=== PATIENT | female | born 1965 | race African-American/Black ===

== ENCOUNTER 2017-05-21 07:40 | Inpatient (IN) | payer MEDICARE, MEDICAID ==
[~2017-05-21] VITALS: Ht 162.6 cm; Wt 56.7 kg
[~2017-05-21 07:40] MED LIST: ASPI-1159 PO; CALC667C4 PO; CINA30 PO; COR3 PO; FOLI-43 PO; LEVO175T7 PO; LEVO75TA7 PO; SEVE800T8 PO
[2017-05-21] MEDS ORDERED: MORPHINE SULFATE 4 MG/ML CPJ (NOT FOR IM USE) IV STA (08:05)
[2017-05-21] MEDS ORDERED: ONDANSETRON HCL 4MG/2ML VIAL IV STA (08:05)
[2017-05-21] MEDS ORDERED: DIPHENHYDRAMINE 50MG CAPSULE PO ONE (08:15)
[2017-05-21 08:34] LABS: BASOPHILS % 1.4 % (0.0-2.0); HEMATOCRIT. 26.1 % (36.0-48.0); HEMOGLOBIN. 8.3 g/dL (12.0-16.0); LYMPHOCYTES % 21.2 % (20.0-50.0); MEAN CORPUSCULAR HEMOGLOBIN 29.6 pg (28.0-32.0); MEAN CORPUSCULAR VOLUME 92.8 fL (81.0-99.0); MEAN PLATELET VOLUME 8.4 fl (7.4-10.4); MONOCYTES % 8.4 % (2.0-8.0); PLATELET 122 x1000/uL (130-400); RED BLOOD CELL COUNT 2.81 mill/uL (4.2-5.4); RED CELL DISTRIBUTION WIDTH 17.5 % (11.6-14.6)
[2017-05-21 08:40] LABS: INR 1.1; PROTHROMBIN TIME 11.1 sec (9.4-11.6)
[2017-05-21 08:44] LABS: CARBON DIOXIDE 27 mEq/L (21-32); CHLORIDE 100 mEq/L (98-107)
[2017-05-21 08:59] LABS: HCG SCREEN NEGATIVE
[2017-05-21] MEDS ORDERED: ALBUTEROL (0.083%) 2.5MG/3ML NEB HHN ONE (09:45)
[2017-05-21] MEDS ORDERED: DEXTROSE 50% WATER 50ML SYRINGE IV ONE ×4 (09:45→13:45)
[2017-05-21] MEDS ORDERED: SODIUM BICARBONATE 8.4% 1 MEQ/ML 50ML SYR IV ONE (09:45)
[2017-05-21] MEDS ORDERED: CALCIUM CHLORIDE 1GM/10ML SYR IV ONE (09:45)
[2017-05-21] MEDS ORDERED: SODIUM POLYSTYRENE SULFONATE 15 G/60 ML BOT PO ONE (09:45)
[2017-05-21] MEDS ORDERED: INSULIN REGULAR (HUMULIN R) 300UNITS/3ML IV ONE (09:45)
[2017-05-21] MEDS ORDERED: ONDANSETRON HCL 4MG/2ML VIAL IV ONE (10:15)
[2017-05-21] MEDS ORDERED: SODIUM CHLORIDE 0.9% 10ML VIAL ONE (10:51)
[2017-05-21] MEDS ORDERED: IOHEXOL-300 100 ML BOTTLE ONE (10:51)
[2017-05-21] MEDS ORDERED: PIPERACILLIN/TAZOBACTAM 3.375GM/50ML PREMIX IV ONE (12:15)
[2017-05-21] MEDS ORDERED: PIPERACILLIN/TAZ 3.375G PREMIX 50 ML IV SCH (12:30)
[2017-05-21 15:00] VITALS: BP 130/81
[2017-05-21 15:30] VITALS: BP 138/72
[2017-05-21 16:00] VITALS: BP 138/72
[2017-05-21] MEDS ORDERED: CARVEDILOL 6.25 MG TABLET PO SCH (17:00)
[2017-05-21 18:00] VITALS: BP 141/75
[2017-05-21] MEDS: CALCIUM ACETATE 667MG CAPSULE PO SCH (18:38)
[2017-05-21 20:00] VITALS: BP 126/56
[2017-05-21] MEDS ORDERED: EPOETIN ALFA 10000UNITS/ML VIAL SUBCUT SCH (21:00)
[2017-05-21 22:00] VITALS: BP 129/68
[2017-05-21] MEDS ORDERED: IPRATROPIUM/ALBUTEROL 0.5-3(2.5)MG/3ML NEB INH PRN (22:15)
[2017-05-22] VITALS (10 sets, daily range): BP systolic 126–154; BP diastolic 62–90
[2017-05-22] MEDS: ONDANSETRON HCL 4MG/2ML VIAL IV PRN ×3 (01:14→16:03)
[2017-05-22] MEDS: HYDROMORPHONE HCL/PF 2MG/ML CPJ IV PRN ×5 (01:19→21:37)
[2017-05-22] MEDS ORDERED: DEXTROSE 50% WATER 50ML SYRINGE IV PRN (03:30)
[2017-05-22 06:41] LABS: BASOPHILS % 0.8 % (0.0-2.0); EOSINOPHILS % 2.5 % (0.0-5.0); HEMATOCRIT. 23.7 % (36.0-48.0); HEMOGLOBIN. 7.6 g/dL (12.0-16.0); LYMPHOCYTES % 19.1 % (20.0-50.0); MEAN CORPUSCULAR HEMOGLOBIN 30.2 pg (28.0-32.0); MEAN CORPUSCULAR VOLUME 93.3 fL (81.0-99.0); MEAN PLATELET VOLUME 8.5 fl (7.4-10.4); MONOCYTES % 11.1 % (2.0-8.0); NEUTROPHILS % 66.5 % (40.0-76.0); PLATELET 116 x1000/uL (130-400); RED BLOOD CELL COUNT 2.53 mill/uL (4.2-5.4); RED CELL DISTRIBUTION WIDTH 17.4 % (11.6-14.6)
[2017-05-22] MEDS: INSULIN LISPRO 100 UNITS/ML SUBCUT SCH ×4 (07:20→21:00)
[2017-05-22] MEDS: BLOOD SUGAR DIAGNOSTIC STRIP TEST SCH ×4 (07:20→21:05)
[2017-05-22] MEDS: LEVOTHYROXINE SODIUM 175MCG TABLET PO SCH (07:21)
[2017-05-22] MEDS ORDERED: CALCIUM ACETATE 667MG CAPSULE PO SCH (08:00)
[2017-05-22] MEDS: SEVELAMER CARBONATE 800 MG TABLET PO SCH ×3 (08:48→18:12)
[2017-05-22] MEDS: FOLIC ACID 1MG TABLET PO SCH (08:49)
[2017-05-22] MEDS: ASPIRIN 81MG EC TABLET PO SCH (08:50)
[2017-05-22] MEDS: CALCIUM ACETATE 667MG CAPSULE PO SCH ×3 (08:50→18:11)
[2017-05-22] MEDS: CARVEDILOL 3.125 MG TABLET PO SCH ×3 (08:53→09:07)
[2017-05-22] MEDS: CINACALCET HCL 30MG TABLET PO SCH (09:03)
[2017-05-22] MEDS: DIPHENHYDRAMINE 25MG CAPSULE PO PRN (15:59)
[2017-05-23] VITALS (8 sets, daily range): BP systolic 110–139; BP diastolic 73–92
[2017-05-23] MEDS ORDERED: HYDROMORPHONE HCL/PF 2MG/ML CPJ IV PRN (00:15)
[2017-05-23] MEDS: DIPHENHYDRAMINE 25MG CAPSULE PO PRN (01:41)
[2017-05-23] MEDS: HYDROMORPHONE HCL/PF 2MG/ML CPJ IV PRN ×3 (01:42→11:15)
[2017-05-23 06:23] LABS: CARBON DIOXIDE 33 mEq/L (21-32); CHLORIDE 97 mEq/L (98-107); PHOSPHORUS 6.5 mg/dL (2.5-4.9)
[2017-05-23 06:35] LABS: BASOPHILS % 0.9 % (0.0-2.0); HEMATOCRIT. 24.1 % (36.0-48.0); HEMOGLOBIN. 7.7 g/dL (12.0-16.0); LYMPHOCYTES % 28.7 % (20.0-50.0); MEAN CORPUSCULAR HEMOGLOBIN 29.9 pg (28.0-32.0); MEAN PLATELET VOLUME 8.6 fl (7.4-10.4); MONOCYTES % 14.8 % (2.0-8.0); NEUTROPHILS % 51.6 % (40.0-76.0); PLATELET 125 x1000/uL (130-400); RED BLOOD CELL COUNT 2.56 mill/uL (4.2-5.4); RED CELL DISTRIBUTION WIDTH 17.7 % (11.6-14.6)
[2017-05-23] MEDS: LEVOTHYROXINE SODIUM 175MCG TABLET PO SCH (07:08)
[2017-05-23] MEDS: BLOOD SUGAR DIAGNOSTIC STRIP TEST SCH ×2 (07:19→11:58)
[2017-05-23] MEDS: CARVEDILOL 3.125 MG TABLET PO SCH (08:00)
[2017-05-23] MEDS: FOLIC ACID 1MG TABLET PO SCH (08:00)
[2017-05-23] MEDS: CALCIUM ACETATE 667MG CAPSULE PO SCH ×2 (08:00→13:00)
[2017-05-23] MEDS: CINACALCET HCL 30MG TABLET PO SCH (08:00)
[2017-05-23] MEDS: ASPIRIN 81MG EC TABLET PO SCH (08:00)
[2017-05-23] MEDS: SEVELAMER CARBONATE 800 MG TABLET PO SCH ×2 (08:00→13:00)
[2017-05-23] MEDS: INSULIN LISPRO 100 UNITS/ML SUBCUT SCH ×2 (08:00→12:17)
[2017-05-23] MEDS ORDERED: DIPHENHYDRAMINE 50MG/ML VIAL IV SCH (09:45)
== END 2017-05-23 15:39 | disposition home or self-care (01) | DRG 444 ==
LOC: ER 08:31 → ENRESERV 10:54 → EDBEDREQ 12:07 → 5EST 14:48
PROVIDERS: ADMIT Internal Medicine; ATTEND Internal Medicine
DX: K81.9 Cholecystitis, unspecified (principal); N18.6 End stage renal disease; I13.2 Hypertensive heart and chronic kidney disease with heart failure and with stage 5 chronic kidney disease, or end stage renal disease; D61.818 Other pancytopenia; I42.0 Dilated cardiomyopathy; I82.91 Chronic embolism and thrombosis of unspecified vein; E87.5 Hyperkalemia; I50.20 Unspecified systolic (congestive) heart failure; D63.1 Anemia in chronic kidney disease; E03.9 Hypothyroidism, unspecified; E16.2 Hypoglycemia, unspecified; F17.200 Nicotine dependence, unspecified, uncomplicated; M54.5 Low back pain; G89.29 Other chronic pain; R74.0 Nonspecific elevation of levels of transaminase and lactic acid dehydrogenase [LDH]; B19.20 Unspecified viral hepatitis C without hepatic coma; Z99.2 Dependence on renal dialysis; Z95.810 Presence of automatic (implantable) cardiac defibrillator; Z82.49 Family history of ischemic heart disease and other diseases of the circulatory system; Z86.718 Personal history of other venous thrombosis and embolism
CPT/HCPCS: 36415; 71010; 74177; 76705; 80048; 80053; 82962; 83690; 83735; 84100; 84703; 85025; 85610; 93306; 94640; 96374; 96375; 99291; A4216; J0885; J1170; J1200; J1815; J2270; J2405; J2543; J3490; J7030; J7611; Q0163; Q9967

== ENCOUNTER 2017-06-06 08:23 | Inpatient (IN) | payer MEDICARE, MEDICAID ==
[~2017-06-06] VITALS: Ht 165.1 cm; Wt 73.5 kg
[2017-06-06] MEDS ORDERED: ONDANSETRON HCL 4MG/2ML VIAL IV STA (10:50)
[2017-06-06] MEDS ORDERED: DIPHENHYDRAMINE 50MG/ML VIAL IV STA (10:50)
[2017-06-06] MEDS ORDERED: MORPHINE SULFATE 4 MG/ML CPJ (NOT FOR IM USE) IV STA (10:50)
[2017-06-06 11:11] LABS: HEMATOCRIT. 24.4 % (36.0-48.0); MEAN CORPUSCULAR HEMOGLOBIN 29.8 pg (28.0-32.0); MEAN CORPUSCULAR VOLUME 91.7 fL (81.0-99.0); MEAN PLATELET VOLUME 8.6 fl (7.4-10.4); PLATELET 149 x1000/uL (130-400); RED BLOOD CELL COUNT 2.67 mill/uL (4.2-5.4); RED CELL DISTRIBUTION WIDTH 18.4 % (11.6-14.6)
[2017-06-06 11:22] LABS: CHLORIDE 101 mEq/L (98-107)
[2017-06-06 11:30] LABS: CARBON DIOXIDE 28 mEq/L (21-32)
[2017-06-06 11:32] LABS: INR 1.1; PARTIAL THROMBOPLASTIN TIME 32.6 sec (23.4-31.0); PROTHROMBIN TIME 11.2 sec (9.4-11.6)
[2017-06-06 12:05] LABS: HCG SCREEN NEGATIVE
[2017-06-06] MEDS ORDERED: ONDANSETRON HCL 4MG/2ML VIAL IV ONE (12:15)
[2017-06-06] MEDS ORDERED: MORPHINE SULFATE 4 MG/ML CPJ (NOT FOR IM USE) IV ONE (12:15)
[2017-06-06 13:42] LABS: PLATELET ESTIMATE NORMAL
[2017-06-06] MEDS ORDERED: IOHEXOL-300 100 ML BOTTLE ONE (14:09)
[2017-06-06] MEDS ORDERED: SODIUM CHLORIDE 0.9% 10ML VIAL ONE (14:09)
[2017-06-06 16:00] VITALS: BP 129/84
[2017-06-06] MEDS ORDERED: MORPHINE SULFATE 4 MG/ML CPJ (NOT FOR IM USE) IV PRN (18:45)
[2017-06-06] MEDS ORDERED: ONDANSETRON HCL 4MG/2ML VIAL IV PRN (18:45)
[2017-06-06 20:00] VITALS: BP 116/64
[2017-06-06] MEDS ORDERED: GABA-531 PO (20:01)
[2017-06-06] MEDS: HYDROMORPHONE HCL/PF 2MG/ML CPJ IV PRN (21:07)
[2017-06-06] MEDS: DIPHENHYDRAMINE 50MG/ML VIAL IV PRN (21:09)
[2017-06-07] VITALS: BP 104/62
[2017-06-07 04:00] VITALS: BP 100/60
[2017-06-07 07:30] LABS: HEMOGLOBIN. 8.8 g/dL (12.0-16.0); MEAN CORPUSCULAR VOLUME 92.1 fL (81.0-99.0); MEAN PLATELET VOLUME 8.2 fl (7.4-10.4); PLATELET 162 x1000/uL (130-400); RED BLOOD CELL COUNT 2.93 mill/uL (4.2-5.4); RED CELL DISTRIBUTION WIDTH 17.8 % (11.6-14.6)
[2017-06-07 08:00] VITALS: BP 111/64
[2017-06-07 08:11] LABS: PHOSPHORUS 7.9 mg/dL (2.5-4.9)
[2017-06-07] MEDS: DIPHENHYDRAMINE 50MG/ML VIAL IV PRN ×3 (08:24→18:03)
[2017-06-07] MEDS ORDERED: LEVOTHYROXINE SODIUM 75MCG TABLET PO SCH (09:00)
[2017-06-07] MEDS ORDERED: FOLIC ACID 1MG TABLET PO SCH (09:00)
[2017-06-07] MEDS ORDERED: ASPIRIN 81MG EC TABLET PO SCH (09:00)
[2017-06-07] MEDS ORDERED: CINACALCET HCL 30MG TABLET PO SCH (09:00)
[2017-06-07] MEDS: GABAPENTIN 300MG CAPSULE PO SCH ×3 (09:00→17:00)
[2017-06-07] MEDS ORDERED: CARVEDILOL 3.125 MG TABLET PO SCH (09:00)
[2017-06-07] MEDS: CALCIUM ACETATE 667MG CAPSULE PO SCH ×3 (09:00→17:00)
[2017-06-07] MEDS ORDERED: LEVOTHYROXINE SODIUM 175MCG TABLET PO SCH (09:00)
[2017-06-07] MEDS: SEVELAMER CARBONATE 800 MG TABLET PO SCH ×3 (09:00→17:00)
[2017-06-07 09:41] LABS: TOTAL IRON BINDING CAPACITY 305 ug/dL (250-450)
[2017-06-07 11:57] LABS: HEPATITIS B SURFACE ANTIGEN NEGATIVE
[2017-06-07 12:00] VITALS: BP 132/84
[2017-06-07 12:06] LABS: FERRITIN 1444 ng/mL (10-291)
[2017-06-07 12:25] LABS: HEPATITIS B CORE AB IGM NEGATIVE
[2017-06-07] MEDS: HYDROMORPHONE HCL/PF 2MG/ML CPJ IV PRN ×2 (12:49→18:03)
[2017-06-07 16:00] VITALS: BP 124/55
[2017-06-07 18:00] LABS: NUCLEATED RED BLOOD CELLS 1 /100 WBC; PLATELET ESTIMATE NORMAL
[2017-06-07 20:00] VITALS: BP 137/81
[2017-06-08] MEDS ORDERED: LEVOTHYROXINE SODIUM 100MCG TABLET PO SCH (07:40)
[2017-06-08] MEDS ORDERED: EPOETIN ALFA 10000UNITS/ML VIAL SUBCUT SCH (21:00)
[2017-06-11 15:29] LABS: HEPATITIS A AB IGM NEGATIVE (NEGATIVE)
== END 2017-06-07 20:10 | disposition left against medical advice (07) | DRG 391 ==
LOC: ER 08:53 → 7WST 13:31 → EDBEDREQ 13:31 → ENRESERV 13:39
PROVIDERS: ADMIT Internal Medicine; ATTEND Internal Medicine
PROC: 5A1D00Z (ICD-10-PCS; principal; 2017-06-06)
DX: R10.84 Generalized abdominal pain (principal); N18.6 End stage renal disease; I82.220 Acute embolism and thrombosis of inferior vena cava; I13.2 Hypertensive heart and chronic kidney disease with heart failure and with stage 5 chronic kidney disease, or end stage renal disease; I74.5 Embolism and thrombosis of iliac artery; I31.3 Pericardial effusion (noninflammatory); K76.1 Chronic passive congestion of liver; I50.22 Chronic systolic (congestive) heart failure; D63.8 Anemia in other chronic diseases classified elsewhere; E03.9 Hypothyroidism, unspecified; E21.3 Hyperparathyroidism, unspecified; R74.0 Nonspecific elevation of levels of transaminase and lactic acid dehydrogenase [LDH]; Z53.21 Procedure and treatment not carried out due to patient leaving prior to being seen by health care provider; R79.89 Other specified abnormal findings of blood chemistry; F17.200 Nicotine dependence, unspecified, uncomplicated; Z86.718 Personal history of other venous thrombosis and embolism; Z95.810 Presence of automatic (implantable) cardiac defibrillator; Z99.2 Dependence on renal dialysis; Z79.01 Long term (current) use of anticoagulants; Z79.82 Long term (current) use of aspirin; Z79.899 Other long term (current) drug therapy
CPT/HCPCS: 36415; 71010; 74177; 76700; 80048; 80053; 80076; 82150; 82728; 83540; 83550; 83605; 83690; 83970; 84100; 84703; 85025; 85610; 85730; 86705; 86709; 86803; 87040; 87340; 93005; 96374; 96375; 96376; 99285; A4216; J1170; J1200; J2270; J2405; J7030; Q9967

== ENCOUNTER 2017-06-09 12:00 | Inpatient (IN) | payer MEDICARE, MEDICAID ==
[~2017-06-09] VITALS: Ht 165.1 cm; Wt 49.9 kg
[~2017-06-09 12:00] MED LIST changes: +GABA-531 PO
[2017-06-09] MEDS ORDERED: ONDANSETRON HCL 4MG/2ML VIAL IV STA (13:21)
[2017-06-09] MEDS ORDERED: MORPHINE SULFATE 4 MG/ML CPJ (NOT FOR IM USE) IV STA (13:21)
[2017-06-09 14:38] LABS: HEMATOCRIT. 29.3 % (36.0-48.0); HEMOGLOBIN. 9.5 g/dL (12.0-16.0); MEAN CORPUSCULAR HEMOGLOBIN 29.4 pg (28.0-32.0); MEAN CORPUSCULAR VOLUME 90.3 fL (81.0-99.0); MEAN PLATELET VOLUME 7.5 fl (7.4-10.4); PLATELET 190 x1000/uL (130-400); RED BLOOD CELL COUNT 3.25 mill/uL (4.2-5.4); RED CELL DISTRIBUTION WIDTH 18.1 % (11.6-14.6)
[2017-06-09 14:46] LABS: INR 1.1; PARTIAL THROMBOPLASTIN TIME 30.8 sec (23.4-31.0); PROTHROMBIN TIME 11.4 sec (9.4-11.6)
[2017-06-09 14:50] LABS: HCG SCREEN NEGATIVE
[2017-06-09 14:54] LABS: CARBON DIOXIDE 32 mEq/L (21-32); CHLORIDE 96 mEq/L (98-107); TROPONIN I 0.08 ng/mL (0.00-0.04)
[2017-06-09] MEDS ORDERED: DIPHENHYDRAMINE 50MG/ML VIAL IV ONE (15:00)
[2017-06-09 15:03] LABS: PHOSPHORUS 8.5 mg/dL (2.5-4.9)
[2017-06-09] MEDS ORDERED: ONDANSETRON 4MG ODT PO ONE (15:15)
[2017-06-09] MEDS ORDERED: DIPHENHYDRAMINE 50MG/ML VIAL IM ONE (15:15)
[2017-06-09] MEDS ORDERED: MORPHINE SULFATE 10 MG/ML CPJ IM ONE (15:15)
[2017-06-09 16:37] LABS: PLATELET ESTIMATE NORMAL
[2017-06-09 20:00] VITALS: BP 149/60
[2017-06-09] MEDS ORDERED: HYDROMORPHONE HCL/PF 2MG/ML CPJ IV PRN (20:00)
[2017-06-09] MEDS: ONDANSETRON HCL 4MG/2ML VIAL IV PRN (20:13)
[2017-06-09] MEDS ORDERED: MORPHINE SULFATE 2 MG/ML CPJ (NOT FOR IM USE) IV PRN (21:00)
[2017-06-09] MEDS ORDERED: ONDANSETRON HCL 4MG/2ML VIAL IV PRN (21:00)
[2017-06-09] MEDS: DIPHENHYDRAMINE 50MG/ML VIAL IV PRN (21:12)
[2017-06-09 21:47] VITALS: BP 149/60
[2017-06-10] VITALS: BP 121/50
[2017-06-10] MEDS ORDERED: CEPH500C2 PO (00:17)
[2017-06-10] MEDS: HYDROMORPHONE HCL/PF 2MG/ML CPJ IV PRN ×4 (01:23→19:57)
[2017-06-10 04:00] VITALS: BP 112/62
[2017-06-10] MEDS: ONDANSETRON HCL 4MG/2ML VIAL IV PRN (05:41)
[2017-06-10] MEDS: DIPHENHYDRAMINE 50MG/ML VIAL IV PRN ×3 (05:56→19:55)
[2017-06-10] MEDS: CYCLOBENZAPRINE 10MG TABLET PO SCH ×3 (06:00→22:00)
[2017-06-10] MEDS: LEVOTHYROXINE SODIUM 75MCG TABLET PO SCH (06:26)
[2017-06-10] MEDS: LEVOTHYROXINE SODIUM 175MCG TABLET PO SCH (06:27)
[2017-06-10 07:14] LABS: HEMATOCRIT. 30.2 % (36.0-48.0); HEMOGLOBIN. 9.7 g/dL (12.0-16.0); MEAN CORPUSCULAR HEMOGLOBIN 29.7 pg (28.0-32.0); MEAN CORPUSCULAR VOLUME 92.1 fL (81.0-99.0); MEAN PLATELET VOLUME 7.9 fl (7.4-10.4); PLATELET 222 x1000/uL (130-400); RED BLOOD CELL COUNT 3.28 mill/uL (4.2-5.4); RED CELL DISTRIBUTION WIDTH 18.2 % (11.6-14.6)
[2017-06-10 08:00] VITALS: BP 134/87
[2017-06-10] MEDS ORDERED: MORPHINE SULFATE 4 MG/ML CPJ (NOT FOR IM USE) IV PRN (08:00)
[2017-06-10] MEDS ORDERED: CINACALCET HCL 30MG TABLET PO SCH (09:00)
[2017-06-10] MEDS: CALCIUM ACETATE 667MG CAPSULE PO SCH ×3 (10:09→18:05)
[2017-06-10] MEDS: SEVELAMER CARBONATE 800 MG TABLET PO SCH ×3 (10:09→18:04)
[2017-06-10] MEDS: NAPROXEN 500MG TABLET PO SCH ×2 (10:11→21:00)
[2017-06-10] MEDS: FOLIC ACID 1MG TABLET PO SCH (10:11)
[2017-06-10] MEDS: GABAPENTIN 300MG CAPSULE PO SCH ×3 (10:11→18:04)
[2017-06-10] MEDS: CARVEDILOL 3.125 MG TABLET PO SCH (10:11)
[2017-06-10] MEDS: ASPIRIN 81MG EC TABLET PO SCH (10:11)
[2017-06-10 12:00] VITALS: BP 133/54
[2017-06-10 16:00] VITALS: BP 157/57
[2017-06-10 18:07] LABS: PLATELET ESTIMATE NORMAL
[2017-06-10 20:00] VITALS: BP 137/86
[2017-06-11] VITALS: BP 104/46
[2017-06-11 04:00] VITALS: BP 100/47
[2017-06-11] MEDS: LEVOTHYROXINE SODIUM 175MCG TABLET PO SCH (06:44)
[2017-06-11] MEDS: CYCLOBENZAPRINE 10MG TABLET PO SCH ×2 (06:45→13:35)
[2017-06-11] MEDS: LEVOTHYROXINE SODIUM 75MCG TABLET PO SCH (07:10)
[2017-06-11 08:00] VITALS: BP 113/45
[2017-06-11 08:10] LABS: HEMOGLOBIN 8.7 g/dL (12.0-16.0); MEAN CORPUSCULAR HEMOGLOBIN 29.6 pg (28.0-32.0); MEAN CORPUSCULAR VOLUME 92.2 fL (81.0-99.0); PLATELET 200 x1000/uL (130-400); RED BLOOD CELL COUNT 2.93 mill/uL (4.2-5.4); RED CELL DISTRIBUTION WIDTH 18.5 % (11.6-14.6)
[2017-06-11] MEDS: CALCIUM ACETATE 667MG CAPSULE PO SCH ×3 (08:42→18:44)
[2017-06-11] MEDS: SEVELAMER CARBONATE 800 MG TABLET PO SCH ×3 (08:42→18:44)
[2017-06-11] MEDS: FOLIC ACID 1MG TABLET PO SCH (08:43)
[2017-06-11] MEDS: DIPHENHYDRAMINE 50MG/ML VIAL IV PRN ×2 (08:43→15:24)
[2017-06-11] MEDS: ASPIRIN 81MG EC TABLET PO SCH (08:43)
[2017-06-11] MEDS: GABAPENTIN 300MG CAPSULE PO SCH ×3 (08:43→18:44)
[2017-06-11] MEDS: NAPROXEN 500MG TABLET PO SCH (08:43)
[2017-06-11] MEDS: HYDROMORPHONE HCL/PF 2MG/ML CPJ IV PRN ×2 (08:44→15:24)
[2017-06-11] MEDS: CARVEDILOL 3.125 MG TABLET PO SCH (08:49)
[2017-06-11] MEDS ORDERED: CINACALCET HCL 60MG TABLET PO SCH (09:00)
[2017-06-11] MEDS ORDERED: LACTULOSE 20G/30ML UDC PO NR (09:16)
[2017-06-11 12:00] VITALS: BP 104/44
[2017-06-11 20:00] VITALS: BP 123/70
[2017-06-11 20:49] VITALS: BP 123/70
== END 2017-06-11 21:12 | disposition home or self-care (01) | DRG 291 ==
LOC: ER 13:46 → 8WST 15:54 → ENRESERV 17:46
PROVIDERS: ADMIT Internal Medicine; ATTEND Internal Medicine
PROC: 05HM33Z Insertion of Infusion Device into Right Internal Jugular Vein, Percutaneous Approach (ICD-10-PCS; principal; 2017-06-09)
PROC: 5A1D00Z (ICD-10-PCS; 2017-06-09)
DX: I13.2 Hypertensive heart and chronic kidney disease with heart failure and with stage 5 chronic kidney disease, or end stage renal disease (principal); N18.6 End stage renal disease; I82.220 Acute embolism and thrombosis of inferior vena cava; I74.5 Embolism and thrombosis of iliac artery; N17.9 Acute kidney failure, unspecified; I50.22 Chronic systolic (congestive) heart failure; B19.20 Unspecified viral hepatitis C without hepatic coma; E87.5 Hyperkalemia; G89.29 Other chronic pain; E87.8 Other disorders of electrolyte and fluid balance, not elsewhere classified; D63.8 Anemia in other chronic diseases classified elsewhere; R74.0 Nonspecific elevation of levels of transaminase and lactic acid dehydrogenase [LDH]; F17.200 Nicotine dependence, unspecified, uncomplicated; E03.9 Hypothyroidism, unspecified; Z79.899 Other long term (current) drug therapy; Z99.2 Dependence on renal dialysis; Z95.810 Presence of automatic (implantable) cardiac defibrillator; Z86.718 Personal history of other venous thrombosis and embolism; Z79.82 Long term (current) use of aspirin
CPT/HCPCS: 36415; 36556; 74022; 80048; 80053; 80076; 82962; 83690; 83735; 84100; 84484; 84703; 85025; 85027; 85610; 85730; 93005; 96372; 99291; J1170; J1200; J2270; J2405; J7030; Q0162

== ENCOUNTER 2017-06-17 | Inpatient (IN) | payer MEDICARE, MEDICAID ==
[~2017-06-17] VITALS: Ht 165.1 cm; Wt 57.2 kg
[2017-06-17] VITALS (12 sets, daily range): BP systolic 97–182; BP diastolic 52–78
[~2017-06-17] MED LIST changes: +CEPH500C2 PO
[2017-06-17] MEDS ORDERED: MORPHINE SULFATE 2 MG/ML CPJ (NOT FOR IM USE) IV ONE (00:30)
[2017-06-17 00:38] LABS: HEMATOCRIT. 25.5 % (36.0-48.0); HEMOGLOBIN. 8.4 g/dL (12.0-16.0); MEAN CORPUSCULAR HEMOGLOBIN 30.5 pg (28.0-32.0); MEAN CORPUSCULAR VOLUME 93.1 fL (81.0-99.0); MEAN PLATELET VOLUME 7.5 fl (7.4-10.4); PLATELET 159 x1000/uL (130-400); RED BLOOD CELL COUNT 2.74 mill/uL (4.2-5.4); RED CELL DISTRIBUTION WIDTH 19.5 % (11.6-14.6)
[2017-06-17] MEDS ORDERED: DIPHENHYDRAMINE 12.5MG/5ML UDC PO ONE (00:45)
[2017-06-17] MEDS ORDERED: MORPHINE SULFATE 4 MG/ML CPJ (NOT FOR IM USE) IV NR (00:45)
[2017-06-17 00:46] LABS: CHLORIDE 100 mEq/L (98-107)
[2017-06-17 00:47] LABS: INR 1.1; PARTIAL THROMBOPLASTIN TIME 31.4 sec (23.4-31.0); PROTHROMBIN TIME 11.5 sec (9.4-11.6)
[2017-06-17 00:57] LABS: CARBON DIOXIDE 30 mEq/L (21-32)
[2017-06-17 01:57] LABS: ATYPICAL LYMPHOCYTES 1; PLATELET ESTIMATE NORMAL
[2017-06-17 03:11] LABS: HEMATOCRIT 24.6 % (36.0-48.0); HEMOGLOBIN 7.9 g/dL (12.0-16.0)
[2017-06-17] MEDS ORDERED: DEXTROSE 50% WATER 50ML SYRINGE IV SCH (11:30)
[2017-06-17] MEDS ORDERED: DIPHENHYDRAMINE 50MG/ML VIAL IM PRN (14:15)
[2017-06-17] MEDS: HYDROMORPHONE HCL/PF 2MG/ML CPJ IV PRN ×2 (14:26→20:50)
[2017-06-17] MEDS: SEVELAMER CARBONATE 800 MG TABLET PO SCH ×3 (14:27→18:10)
[2017-06-17] MEDS ORDERED: IPRATROPIUM/ALBUTEROL 0.5-3(2.5)MG/3ML NEB HHN PRN (15:45)
[2017-06-17] MEDS: LEVOTHYROXINE SODIUM 75MCG TABLET PO SCH (17:15)
[2017-06-17] MEDS ORDERED: DIPHENHYDRAMINE 50MG/ML VIAL IV NR (19:00)
[2017-06-17] MEDS: DIPHENHYDRAMINE 50MG/ML VIAL IV PRN (20:49)
[2017-06-17] MEDS: CARVEDILOL 6.25 MG TABLET PO SCH (22:31)
[2017-06-18] VITALS (10 sets, daily range): BP systolic 96–153; BP diastolic 56–93
[2017-06-18] MEDS: CEFAZOLIN 1000MG PREMIX 50 ML IV SCH ×3 (00:27→09:19)
[2017-06-18] MEDS: DIPHENHYDRAMINE 50MG/ML VIAL IV PRN ×4 (02:57→23:47)
[2017-06-18] MEDS: HYDROMORPHONE HCL/PF 2MG/ML CPJ IV PRN ×4 (02:57→23:48)
[2017-06-18] MEDS ORDERED: ONDANSETRON HCL 4MG/2ML VIAL IV PRN (05:00)
[2017-06-18] MEDS: LEVOTHYROXINE SODIUM 75MCG TABLET PO SCH (08:34)
[2017-06-18] MEDS: CINACALCET HCL 60MG TABLET PO SCH (09:19)
[2017-06-18] MEDS: FOLIC ACID/VITAMIN B COMP W-C TABLET PO SCH (09:19)
[2017-06-18] MEDS: CARVEDILOL 6.25 MG TABLET PO SCH ×2 (09:19→21:39)
[2017-06-18 10:02] LABS: BASOPHILS % 0.6 % (0.0-2.0); EOSINOPHILS % 3.4 % (0.0-5.0); HEMOGLOBIN 9.6 g/dL (12.0-16.0); HEMOGLOBIN. 9.6 g/dL (12.0-16.0); LYMPHOCYTES % 9.2 % (20.0-50.0); MEAN CORPUSCULAR HEMOGLOBIN 30.3 pg (28.0-32.0); MEAN CORPUSCULAR VOLUME 91.7 fL (81.0-99.0); MEAN PLATELET VOLUME 8.4 fl (7.4-10.4); MONOCYTES % 12.6 % (2.0-8.0); NEUTROPHILS % 74.2 % (40.0-76.0); PLATELET 118 x1000/uL (130-400); RED BLOOD CELL COUNT 3.16 mill/uL (4.2-5.4); RED CELL DISTRIBUTION WIDTH 18.7 % (11.6-14.6)
[2017-06-18] MEDS: SEVELAMER CARBONATE 800 MG TABLET PO SCH ×2 (10:22→13:10)
[2017-06-19 04:00] VITALS: BP 110/66
[2017-06-19 06:40] LABS: HEMATOCRIT 26.4 % (36.0-48.0); HEMATOCRIT. 26.4 % (36.0-48.0); HEMOGLOBIN 8.4 g/dL (12.0-16.0); HEMOGLOBIN. 8.4 g/dL (12.0-16.0); MEAN CORPUSCULAR HEMOGLOBIN 30.2 pg (28.0-32.0); MEAN CORPUSCULAR VOLUME 95.3 fL (81.0-99.0); MEAN PLATELET VOLUME 8.5 fl (7.4-10.4); PLATELET 89 x1000/uL (130-400); RED BLOOD CELL COUNT 2.78 mill/uL (4.2-5.4); RED CELL DISTRIBUTION WIDTH 19.5 % (11.6-14.6)
[2017-06-19] MEDS: LEVOTHYROXINE SODIUM 75MCG TABLET PO SCH (07:49)
[2017-06-19 08:00] VITALS: BP 115/74
[2017-06-19] MEDS: CINACALCET HCL 60MG TABLET PO SCH (08:05)
[2017-06-19] MEDS: SEVELAMER CARBONATE 800 MG TABLET PO SCH ×3 (08:05→17:35)
[2017-06-19] MEDS: FOLIC ACID/VITAMIN B COMP W-C TABLET PO SCH (08:05)
[2017-06-19] MEDS: DIPHENHYDRAMINE 50MG/ML VIAL IV PRN ×2 (08:05→14:08)
[2017-06-19] MEDS: HYDROMORPHONE HCL/PF 2MG/ML CPJ IV PRN ×2 (08:06→14:08)
[2017-06-19] MEDS: CARVEDILOL 6.25 MG TABLET PO SCH (08:06)
[2017-06-19] MEDS ORDERED: CEFAZOLIN 1000MG PREMIX 50 ML IV SCH (09:00)
[2017-06-19 12:00] VITALS: BP 108/63
[2017-06-19 12:13] VITALS: BP 108/63
[2017-06-19 13:20] LABS: PLATELET ESTIMATE DECREASED
[2017-06-19 16:00] VITALS: BP 122/77
== END 2017-06-19 18:30 | disposition home or self-care (01) | DRG 314 ==
LOC: ER 00:04 → 7WST 04:20 → EDBEDREQ 08:55 → ENRESERV 10:50
PROVIDERS: ADMIT Internal Medicine; ATTEND Internal Medicine Critical Care Medicine
PROC: 30233N1 Transfusion of Nonautologous Red Blood Cells into Peripheral Vein, Percutaneous Approach (ICD-10-PCS; principal; 2017-06-17)
PROC: 5A1D00Z (ICD-10-PCS; 2017-06-18)
DX: T82.838A Hemorrhage due to vascular prosthetic devices, implants and grafts, initial encounter (principal); N18.6 End stage renal disease; I13.2 Hypertensive heart and chronic kidney disease with heart failure and with stage 5 chronic kidney disease, or end stage renal disease; I42.9 Cardiomyopathy, unspecified; E44.1 Mild protein-calorie malnutrition; I50.22 Chronic systolic (congestive) heart failure; I27.2 Other secondary pulmonary hypertension; D50.9 Iron deficiency anemia, unspecified; F17.210 Nicotine dependence, cigarettes, uncomplicated; D63.8 Anemia in other chronic diseases classified elsewhere; E03.9 Hypothyroidism, unspecified; E21.3 Hyperparathyroidism, unspecified; E87.5 Hyperkalemia; I25.10 Atherosclerotic heart disease of native coronary artery without angina pectoris; Y83.8 Other surgical procedures as the cause of abnormal reaction of the patient, or of later complication, without mention of misadventure at the time of the procedure; G89.29 Other chronic pain; Z95.810 Presence of automatic (implantable) cardiac defibrillator; Z99.2 Dependence on renal dialysis; Z82.49 Family history of ischemic heart disease and other diseases of the circulatory system; Z79.899 Other long term (current) drug therapy; Z79.82 Long term (current) use of aspirin; Z68.21 Body mass index [BMI] 21.0-21.9, adult; Y92.89 Other specified places as the place of occurrence of the external cause
CPT/HCPCS: 36415; 36430; 71010; 80048; 80053; 82962; 85014; 85018; 85025; 85027; 85044; 85610; 85730; 86850; 86870; 86880; 86900; 86920; 87040; 96374; 99285; J0690; J1170; J1200; J2270; J7030; J7040; J7050; P9016; Q0163

== ENCOUNTER 2017-07-27 20:44 | Inpatient (IN) | payer MEDICARE, MEDICAID ==
[~2017-07-27] VITALS: Ht 165.1 cm; Wt 57.4 kg
[2017-07-27] MEDS ORDERED: MORPHINE SULFATE 4 MG/ML CPJ (NOT FOR IM USE) IV STA (22:06)
[2017-07-27] MEDS ORDERED: ONDANSETRON HCL 4MG/2ML VIAL IV STA (22:06)
[2017-07-27 23:14] LABS: BASOPHILS % 0.6 % (0.0-2.0); EOSINOPHILS % 9.6 % (0.0-5.0); HEMATOCRIT. 25.1 % (36.0-48.0); HEMOGLOBIN. 8.1 g/dL (12.0-16.0); LYMPHOCYTES % 19.3 % (20.0-50.0); MEAN CORPUSCULAR HEMOGLOBIN 33.3 pg (28.0-32.0); MEAN CORPUSCULAR VOLUME 103.4 fL (81.0-99.0); MONOCYTES % 7.5 % (2.0-8.0); PLATELET 142 x1000/uL (130-400); RED BLOOD CELL COUNT 2.43 mill/uL (4.2-5.4); RED CELL DISTRIBUTION WIDTH 20.4 % (11.6-14.6)
[2017-07-27 23:21] LABS: CHLORIDE 100 mEq/L (98-107)
[2017-07-27 23:22] LABS: INR 1.1; PARTIAL THROMBOPLASTIN TIME 33.3 sec (23.4-31.0); PROTHROMBIN TIME 11.2 sec (9.4-11.6)
[2017-07-27 23:28] LABS: CARBON DIOXIDE 31 mEq/L (21-32)
[2017-07-27 23:31] LABS: TROPONIN I 0.08 ng/mL (0.00-0.04)
[2017-07-27] MEDS: DIPHENHYDRAMINE 50MG/ML VIAL IV ONE ×2 (23:37→23:46)
[2017-07-28] MEDS ORDERED: ASPIRIN 81MG EC TABLET PO ONE (01:00)
[2017-07-28] MEDS ORDERED: HYDROCODONE/ACETAMINOPHEN 5/325MG TABLET PO SCH (06:45)
[2017-07-28] MEDS ORDERED: ONDANSETRON HCL 4MG/2ML VIAL IV PRN (07:30)
[2017-07-28] MEDS ORDERED: CLONIDINE 0.1MG TABLET PO PRN (07:30)
[2017-07-28] MEDS ORDERED: ACETAMINOPHEN 325MG TABLET PO PRN (07:30)
[2017-07-28] MEDS ORDERED: HYDROCODONE/ACETAMINOPHEN 5/325MG TABLET PO PRN (07:30)
[2017-07-28] MEDS ORDERED: DOCUSATE SODIUM 100MG CAPSULE PO PRN (07:30)
[2017-07-28] MEDS ORDERED: ASPIRIN 81MG EC TABLET PO SCH (09:00)
[2017-07-28 09:20] VITALS: BP 95/64
[2017-07-28 09:38] VITALS: BP 110/67
[2017-07-28] MEDS: HYDROMORPHONE HCL/PF 2MG/ML CPJ IV PRN ×3 (09:47→20:12)
[2017-07-28] MEDS: LORAZEPAM 0.5MG TABLET PO PRN ×2 (09:47→18:54)
[2017-07-28] MEDS: DIPHENHYDRAMINE 50MG/ML VIAL IV PRN ×3 (09:47→20:11)
[2017-07-28 12:00] VITALS: BP 109/68
[2017-07-28 16:00] VITALS: BP_SYST 122; BP_SYST 137; BP_DIAS 72; BP_DIAS 79
[2017-07-28 20:00] VITALS: BP 100/61
[2017-07-29] VITALS: BP 137/85
[2017-07-29 04:17] VITALS: BP 168/84
[2017-07-29] MEDS: DIPHENHYDRAMINE 50MG/ML VIAL IV PRN ×2 (04:20→08:12)
[2017-07-29] MEDS: HYDROMORPHONE HCL/PF 2MG/ML CPJ IV PRN ×2 (04:21→08:13)
[2017-07-29 06:34] LABS: EOSINOPHILS % 10.5 % (0.0-5.0); HEMATOCRIT. 28.1 % (36.0-48.0); HEMOGLOBIN. 9.2 g/dL (12.0-16.0); LYMPHOCYTES % 24.1 % (20.0-50.0); MEAN CORPUSCULAR HEMOGLOBIN 33.9 pg (28.0-32.0); MEAN CORPUSCULAR VOLUME 104.3 fL (81.0-99.0); MEAN PLATELET VOLUME 7.9 fl (7.4-10.4); MONOCYTES % 8.9 % (2.0-8.0); NEUTROPHILS % 55.5 % (40.0-76.0); PLATELET 173 x1000/uL (130-400); RED CELL DISTRIBUTION WIDTH 20.4 % (11.6-14.6)
[2017-07-29 06:53] LABS: CARBON DIOXIDE 25 mEq/L (21-32); CHLORIDE 98 mEq/L (98-107); HDL CHOLESTEROL 69 mg/dL (40-59); LDL CHOLESTEROL 74 mg/dL (5-100)
[2017-07-29 06:56] LABS: TROPONIN I 0.06 ng/mL (0.00-0.04)
[2017-07-29 08:00] VITALS: BP 134/80
[2017-07-29] MEDS ORDERED: LEVOTHYROXINE SODIUM 75MCG TABLET PO SCH (10:00)
[2017-07-29] MEDS ORDERED: SODIUM POLYSTYRENE SULFONATE 15 G/60 ML BOT PO SCH (11:15)
[2017-07-29] MEDS ORDERED: SORBITOL 70% SOLN 30ML PO SCH (11:30)
[2017-07-29 11:57] VITALS: BP 126/90
[2017-07-29 12:49] VITALS: BP 126/74
== END 2017-07-29 14:50 | disposition home or self-care (01) | DRG 808 ==
LOC: ER 21:16 → EDBEDREQ 07-28 00:47 → EDBEDREQTM 07-28 00:57 → 8WST 07-28 07:09 → ENRESERV 07-28 07:09
PROVIDERS: ADMIT Internal Medicine; ATTEND Internal Medicine
PROC: 5A1D70Z Performance of Urinary Filtration, Intermittent, Less than 6 Hours Per Day (ICD-10-PCS; principal; 2017-07-29)
DX: D61.818 Other pancytopenia (principal); N18.6 End stage renal disease; I13.2 Hypertensive heart and chronic kidney disease with heart failure and with stage 5 chronic kidney disease, or end stage renal disease; E43 Unspecified severe protein-calorie malnutrition; I27.20 Pulmonary hypertension, unspecified; E87.5 Hyperkalemia; I42.9 Cardiomyopathy, unspecified; I36.1 Nonrheumatic tricuspid (valve) insufficiency; I73.9 Peripheral vascular disease, unspecified; R51 Headache; I50.9 Heart failure, unspecified; G89.4 Chronic pain syndrome; D63.8 Anemia in other chronic diseases classified elsewhere; E03.9 Hypothyroidism, unspecified; F17.210 Nicotine dependence, cigarettes, uncomplicated; Z99.2 Dependence on renal dialysis; Z79.899 Other long term (current) drug therapy; Z95.810 Presence of automatic (implantable) cardiac defibrillator; Z79.82 Long term (current) use of aspirin; Z98.61 Coronary angioplasty status; Z98.891 History of uterine scar from previous surgery
CPT/HCPCS: 36415; 71010; 80053; 80061; 83605; 83690; 83880; 84484; 85025; 85610; 85730; 86850; 86900; 87040; 93005; 96374; 96375; 99285; J1170; J1200; J2270; J2405

== ENCOUNTER 2017-08-09 21:06 | Emergency (ER) | payer MEDICARE, MEDICAID | END 2017-08-09 22:43 | disposition left against medical advice (07) | LOC: ER 21:07 | DX: Z53.21 Procedure and treatment not carried out due to patient leaving prior to being seen by health care provider (principal) ==

== ENCOUNTER 2017-08-13 04:27 | Emergency (ER) | payer MEDICARE, MEDICAID ==
[~2017-08-13] VITALS: Ht 165.1 cm; Wt 50.0 kg
[2017-08-13] MEDS ORDERED: ASPIRIN 81MG TABLET PO STA (05:23)
[2017-08-13 06:06] LABS: BASOPHILS % 1.2 % (0.0-2.0); EOSINOPHILS % 4.9 % (0.0-5.0); HEMATOCRIT. 27.4 % (36.0-48.0); LYMPHOCYTES % 16.5 % (20.0-50.0); MEAN CORPUSCULAR HEMOGLOBIN 32.7 pg (28.0-32.0); MEAN CORPUSCULAR VOLUME 99.2 fL (81.0-99.0); MEAN PLATELET VOLUME 7.9 fl (7.4-10.4); MONOCYTES % 6.4 % (2.0-8.0); PLATELET 130 x1000/uL (130-400); RED BLOOD CELL COUNT 2.76 mill/uL (4.2-5.4); RED CELL DISTRIBUTION WIDTH 20.4 % (11.6-14.6)
[2017-08-13 06:22] LABS: INR 1.1; PARTIAL THROMBOPLASTIN TIME 37.1 sec (23.4-31.0); PROTHROMBIN TIME 11.7 sec (9.4-11.6)
[2017-08-13 06:27] LABS: TROPONIN I 0.08 ng/mL (0.00-0.04)
[2017-08-13] MEDS ORDERED: ONDANSETRON HCL 4MG/2ML VIAL IV STA (06:39)
[2017-08-13] MEDS ORDERED: DIPHENHYDRAMINE 50MG CAPSULE PO ONE (06:45)
[2017-08-13] MEDS ORDERED: FENTANYL CITRATE/PF 50MCG/ML 2ML VIAL IV ONE (06:45)
[2017-08-13] MEDS ORDERED: SODIUM POLYSTYRENE SULFONATE 15 G/60 ML BOT PO NR (07:00)
[2017-08-13] MEDS ORDERED: INSULIN REGULAR (HUMULIN R) 300UNITS/3ML IV NR (07:00)
[2017-08-13] MEDS ORDERED: SODIUM BICARBONATE 8.4% 1 MEQ/ML 50ML SYR IV NR (07:00)
[2017-08-13] MEDS ORDERED: ALBUTEROL (0.083%) 2.5MG/3ML NEB HHN NR (07:00)
[2017-08-13] MEDS ORDERED: DEXTROSE 50% WATER 50ML SYRINGE IV NR (07:00)
[2017-08-13] MEDS ORDERED: CALCIUM CHLORIDE 1GM/10ML SYR IV NR (07:00)
[2017-08-13] MEDS ORDERED: IOHEXOL-300 100 ML BOTTLE ONE (09:31)
[2017-08-13] MEDS ORDERED: ALBUTEROL (0.5%) 2.5MG/0.5ML NEB HHN ONE (11:37)
[2017-08-13] MEDS ORDERED: ALBUTEROL (0.083%) 2.5MG/3ML NEB ONE (11:37)
[2017-08-13 14:46] VITALS: BP 122/60
== END 2017-08-13 14:47 | disposition home or self-care (01) ==
LOC: ER 04:27
DX: I13.2 Hypertensive heart and chronic kidney disease with heart failure and with stage 5 chronic kidney disease, or end stage renal disease (principal); N18.6 End stage renal disease; R10.9 Unspecified abdominal pain; I50.810 Right heart failure, unspecified; E87.5 Hyperkalemia; J90 Pleural effusion, not elsewhere classified; Z88.5 Allergy status to narcotic agent; Z99.2 Dependence on renal dialysis; Z79.82 Long term (current) use of aspirin; Z95.810 Presence of automatic (implantable) cardiac defibrillator; R18.8 Other ascites
CPT/HCPCS: 36415; 71010; 74177; 80048; 80076; 83605; 83690; 83880; 84484; 85025; 85610; 85730; 87040; 93005; 94640; 96374; 96375; 99285; J1815; J2405; J3010; J3490; J7611; Q9967; Q0163

== ENCOUNTER 2017-08-30 11:59 | Emergency (ER) | payer MEDICARE, MEDICAID ==
[~2017-08-30] VITALS: Ht 162.6 cm; Wt 60.0 kg
[2017-08-30] MEDS ORDERED: MAGNESIUM/ALUMINUM HYDROXIDE/SIMETHICONE 30ML UDC PO STA (12:40)
[2017-08-30] MEDS ORDERED: FAMOTIDINE 20MG/2ML VIAL IV STA (12:40)
[2017-08-30] MEDS ORDERED: DIPHENHYDRAMINE 50MG/ML VIAL IV ONE (12:45)
[2017-08-30] MEDS ORDERED: METOCLOPRAMIDE HCL 10MG/2ML VIAL IV ONE (12:45)
[2017-08-30] MEDS ORDERED: SODIUM CHLORIDE 0.9% 250 ML IV ONE (12:45)
[2017-08-30 13:12] LABS: HEMATOCRIT. 29.1 % (36.0-48.0); HEMOGLOBIN. 9.5 g/dL (12.0-16.0); MEAN CORPUSCULAR HEMOGLOBIN 31.8 pg (28.0-32.0); MEAN CORPUSCULAR VOLUME 97.9 fL (81.0-99.0); MEAN PLATELET VOLUME 8.3 fl (7.4-10.4); PLATELET 171 x1000/uL (130-400); RED BLOOD CELL COUNT 2.97 mill/uL (4.2-5.4); RED CELL DISTRIBUTION WIDTH 20.4 % (11.6-14.6)
[2017-08-30 13:20] LABS: CHLORIDE 98 mEq/L (98-107)
[2017-08-30 13:26] LABS: CARBON DIOXIDE 28 mEq/L (21-32)
[2017-08-30] MEDS ORDERED: MORPHINE SULFATE 4 MG/ML CPJ (NOT FOR IM USE) IV ONE (13:30)
[2017-08-30 13:48] LABS: PLATELET ESTIMATE NORMAL
[2017-08-30 13:50] LABS: INR 1.1; PROTHROMBIN TIME 11.4 sec (9.4-11.6)
[2017-08-30 16:16] VITALS: BP 120/70
== END 2017-08-30 16:38 | disposition home or self-care (01) ==
LOC: ER 11:59
DX: K92.2 Gastrointestinal hemorrhage, unspecified (principal); R11.2 Nausea with vomiting, unspecified; I13.2 Hypertensive heart and chronic kidney disease with heart failure and with stage 5 chronic kidney disease, or end stage renal disease; I50.9 Heart failure, unspecified; N18.6 End stage renal disease; R19.7 Diarrhea, unspecified; R06.02 Shortness of breath; E03.9 Hypothyroidism, unspecified; Z79.82 Long term (current) use of aspirin; Z99.2 Dependence on renal dialysis; Z88.5 Allergy status to narcotic agent
CPT/HCPCS: 36415; 80053; 83690; 85025; 85610; 93005; 96361; 96374; 96375; 99285; J1200; J2270; J2765; J3490; J7050

== ENCOUNTER 2017-10-30 10:23 | Emergency (ER) | payer MEDICARE, MEDICAID ==
[~2017-10-30] VITALS: Ht 165.1 cm; Wt 50.0 kg
[2017-10-30] MEDS ORDERED: DIAZEPAM 5 MG TABLET PO ONE (12:00)
[2017-10-30 14:00] VITALS: BP 121/76
== END 2017-10-30 14:02 | disposition home or self-care (01) ==
LOC: ER 10:41
DX: M54.42 Lumbago with sciatica, left side (principal); I13.2 Hypertensive heart and chronic kidney disease with heart failure and with stage 5 chronic kidney disease, or end stage renal disease; E11.22 Type 2 diabetes mellitus with diabetic chronic kidney disease; N18.6 End stage renal disease; M19.90 Unspecified osteoarthritis, unspecified site; I49.9 Cardiac arrhythmia, unspecified; Z99.2 Dependence on renal dialysis; Z88.5 Allergy status to narcotic agent; Z79.82 Long term (current) use of aspirin; W19.XXXA Unspecified fall, initial encounter; Y93.89 Activity, other specified; Y92.89 Other specified places as the place of occurrence of the external cause; Y99.8 Other external cause status
CPT/HCPCS: 72100; 73502; 99284

== ENCOUNTER 2017-12-12 11:07 | Inpatient (IN) | payer MEDICARE, MEDICAID ==
[~2017-12-12] VITALS: Ht 165.1 cm; Wt 56.7 kg
[2017-12-12] MEDS ORDERED: MORPHINE SULFATE 4 MG/ML CPJ (NOT FOR IM USE) IV STA (11:24)
[2017-12-12] MEDS ORDERED: ONDANSETRON HCL 4MG/2ML VIAL IV STA (11:24)
[2017-12-12] MEDS ORDERED: DIPHENHYDRAMINE 50MG/ML VIAL IV ONE (11:30)
[2017-12-12 11:48] LABS: HEMATOCRIT. 33.9 % (36.0-48.0); MEAN CORPUSCULAR HEMOGLOBIN 29.7 pg (28.0-32.0); MEAN CORPUSCULAR VOLUME 91.9 fL (81.0-99.0); MEAN PLATELET VOLUME 7.9 fl (7.4-10.4); PLATELET 177 x1000/uL (130-400); RED BLOOD CELL COUNT 3.69 mill/uL (4.2-5.4); RED CELL DISTRIBUTION WIDTH 20.8 % (11.6-14.6)
[2017-12-12 11:57] LABS: CHLORIDE 99 mEq/L (98-107); D-DIMER 1.4 mg/L FEU (<0.50); PARTIAL THROMBOPLASTIN TIME 30.7 sec (23.4-31.0); PROTHROMBIN TIME 10.8 sec (9.4-11.6)
[2017-12-12 12:04] LABS: CREATINE KINASE 147 IU/L (26-192)
[2017-12-12 12:11] LABS: NUCLEATED RED BLOOD CELLS 1 /100 WBC; PLATELET ESTIMATE NORMAL
[2017-12-12 14:48] LABS: T4 FREE 0.53 ng/dL (0.76-1.46)
[2017-12-12] MEDS ORDERED: CLONIDINE 0.1MG TABLET PO PRN (15:45)
[2017-12-12] MEDS ORDERED: ONDANSETRON HCL 4MG/2ML VIAL IV PRN (15:45)
[2017-12-12] MEDS ORDERED: DOCUSATE SODIUM 100MG CAPSULE PO PRN (15:45)
[2017-12-12] MEDS ORDERED: HYDROCODONE/ACETAMINOPHEN 5/325MG TABLET PO PRN (15:45)
[2017-12-12 16:47] VITALS: BP 122/81
[2017-12-12 17:34] VITALS: BP 122/81
[2017-12-12] MEDS ORDERED: DIPHENHYDRAMINE 50MG/ML VIAL IV PRN (18:45)
[2017-12-12] MEDS: HYDROCODONE/ACETAMINOPHEN 10/325MG TABLET PO PRN ×2 (18:49→23:07)
[2017-12-12 20:00] VITALS: BP 133/76
[2017-12-13] VITALS: BP 109/77
[2017-12-13 04:00] VITALS: BP 109/78
[2017-12-13] MEDS: LEVOTHYROXINE SODIUM 75MCG TABLET PO SCH (06:20)
[2017-12-13 07:01] LABS: HEMATOCRIT. 34.9 % (36.0-48.0); HEMOGLOBIN. 11.3 g/dL (12.0-16.0); MEAN CORPUSCULAR VOLUME 92.9 fL (81.0-99.0); MEAN PLATELET VOLUME 8.1 fl (7.4-10.4); PLATELET 185 x1000/uL (130-400); RED BLOOD CELL COUNT 3.76 mill/uL (4.2-5.4)
[2017-12-13 07:13] LABS: CHLORIDE 96 mEq/L (98-107)
[2017-12-13 07:23] LABS: HDL CHOLESTEROL 77 mg/dL (40-59); LDL CHOLESTEROL 78 mg/dL (5-100)
[2017-12-13 08:00] VITALS: BP 91/51
[2017-12-13] MEDS: MORPHINE SULFATE 4 MG/ML CPJ (NOT FOR IM USE) IV PRN ×2 (11:24→18:08)
[2017-12-13 11:59] VITALS: BP 116/59
[2017-12-13] MEDS: DIPHENHYDRAMINE 50MG/ML VIAL IV PRN ×2 (13:43→19:54)
[2017-12-13 13:56] LABS: NUCLEATED RED BLOOD CELLS 3 /100 WBC; PLATELET ESTIMATE NORMAL
[2017-12-13 15:41] LABS: HEMATOCRIT 34.7 % (36.0-48.0); HEMOGLOBIN 10.8 g/dL (12.0-16.0); MEAN CORPUSCULAR HEMOGLOBIN 28.9 pg (28.0-32.0); MEAN CORPUSCULAR VOLUME 92.4 fL (81.0-99.0); PLATELET 179 x1000/uL (130-400); RED BLOOD CELL COUNT 3.75 mill/uL (4.2-5.4); RED CELL DISTRIBUTION WIDTH 21.2 % (11.6-14.6)
[2017-12-13 20:00] VITALS: BP 144/55
[2017-12-14] VITALS: BP 134/75
[2017-12-14] MEDS: MORPHINE SULFATE 4 MG/ML CPJ (NOT FOR IM USE) IV PRN ×2 (00:28→08:22)
[2017-12-14] MEDS: DIPHENHYDRAMINE 50MG/ML VIAL IV PRN ×2 (02:01→10:49)
[2017-12-14 04:00] VITALS: BP_SYST 118; BP_SYST 134; BP_DIAS 66; BP_DIAS 75
[2017-12-14] MEDS: LEVOTHYROXINE SODIUM 75MCG TABLET PO SCH (06:11)
[2017-12-14 08:00] VITALS: BP 113/72
[2017-12-14 12:00] VITALS: BP 112/69
[2017-12-14 12:12] VITALS: BP 113/72
== END 2017-12-14 16:30 | disposition home or self-care (01) | DRG 643 ==
LOC: ER 11:21 → 8WST 14:58 → EDBEDREQ 15:01 → EDBEDREQTM 15:01 → ENRESERV 15:26
PROVIDERS: ADMIT Internal Medicine; ATTEND Internal Medicine
PROC: 5A1D70Z Performance of Urinary Filtration, Intermittent, Less than 6 Hours Per Day (ICD-10-PCS; principal; 2017-12-13)
DX: E03.9 Hypothyroidism, unspecified (principal); N18.6 End stage renal disease; I13.2 Hypertensive heart and chronic kidney disease with heart failure and with stage 5 chronic kidney disease, or end stage renal disease; E87.5 Hyperkalemia; M79.652 Pain in left thigh; I50.9 Heart failure, unspecified; G89.29 Other chronic pain; I25.10 Atherosclerotic heart disease of native coronary artery without angina pectoris; D63.8 Anemia in other chronic diseases classified elsewhere; Z79.82 Long term (current) use of aspirin; Z79.899 Other long term (current) drug therapy; Z99.2 Dependence on renal dialysis; Z95.0 Presence of cardiac pacemaker; Z88.2 Allergy status to sulfonamides; Z88.8 Allergy status to other drugs, medicaments and biological substances
CPT/HCPCS: 36415; 71045; 73502; 80048; 80053; 80061; 82550; 83605; 83690; 83880; 84439; 84443; 84481; 84484; 85025; 85027; 85379; 85610; 85730; 87040; 93005; 93970; 96374; 96375; 99285; J1200; J2270; J2405; J7030

== ENCOUNTER 2018-07-22 00:19 | Inpatient (IN) | payer MEDICARE, MEDICAID ==
[~2018-07-22] VITALS: Ht 157.5 cm; Wt 59.4 kg
[~2018-07-22 00:19] MED LIST changes: +ACET-2178 PO; -ASPI-1159 PO; -CALC667C4 PO; -CEPH500C2 PO; -COR3 PO; +DOCU-150 PO; -GABA-531 PO; +HYDR4TAB56 PO; -LEVO75TA7 PO; +LORA0.5T2 PO; +MAG-55 PO; +PANT40TA4 PO; +RENAVITE; +ZOLP5TAB8 PO
[2018-07-22] MEDS ORDERED: ONDANSETRON HCL 4MG/2ML INJ IV STA (02:00)
[2018-07-22] MEDS ORDERED: MORPHINE SULFATE 4 MG/ML CPJ (NOT FOR IM USE) IV STA (02:00)
[2018-07-22 02:45] LABS: CHLORIDE 102 mEq/L (98-107)
[2018-07-22 03:16] LABS: BASOPHILS % 0.5 % (0.0-2.0); EOSINOPHILS % 1.7 % (0.0-5.0); HEMATOCRIT. 30.4 % (36.0-48.0); HEMOGLOBIN. 9.7 g/dL (12.0-16.0); LYMPHOCYTES % 17.8 % (20.0-50.0); MEAN CORPUSCULAR HEMOGLOBIN 30.1 pg (28.0-32.0); MEAN CORPUSCULAR VOLUME 93.9 fL (81.0-99.0); MONOCYTES % 8.3 % (2.0-8.0); NEUTROPHILS % 71.7 % (40.0-76.0); PLATELET 304 x1000/uL (130-400); RED BLOOD CELL COUNT 3.23 mill/uL (4.2-5.4); RED CELL DISTRIBUTION WIDTH 19.5 % (11.6-14.6)
[2018-07-22] MEDS ORDERED: MORPHINE SULFATE 4 MG/ML CPJ (NOT FOR IM USE) IV NR (08:50)
[2018-07-22] MEDS ORDERED: ONDANSETRON HCL 4MG/2ML INJ IV PRN (09:00)
[2018-07-22] MEDS ORDERED: ACETAMINOPHEN 325MG TABLET PO PRN (09:00)
[2018-07-22 12:00] VITALS: BP 128/70
[2018-07-22] MEDS: SEVELAMER CARBONATE 800 MG TABLET PO SCH ×2 (13:34→17:09)
[2018-07-22] MEDS: DOCUSATE SODIUM 100MG CAPSULE PO SCH ×2 (13:34→19:52)
[2018-07-22] MEDS: CINACALCET HCL 60MG TABLET PO SCH (13:34)
[2018-07-22] MEDS: LEVOTHYROXINE SODIUM 175MCG TABLET PO SCH (13:34)
[2018-07-22] MEDS: MORPHINE SULFATE 4 MG/ML CPJ (NOT FOR IM USE) IV PRN ×2 (14:21→19:53)
[2018-07-22 15:54] LABS: VITAMIN B12 SERUM 493 pg/mL (211-911)
[2018-07-22 16:00] VITALS: BP 112/68
[2018-07-22 16:00] LABS: FOLIC ACID (FOLATE) SERUM > 20.00 ng/mL (>5.38)
[2018-07-22 19:04] LABS: TOTAL IRON BINDING CAPACITY 203 ug/dL (250-450)
[2018-07-22 20:19] LABS: HEPATITIS B SURFACE ANTIGEN NEGATIVE
[2018-07-22 20:27] LABS: FERRITIN 1532 ng/mL (10-291)
[2018-07-22 20:45] LABS: HEPATITIS B CORE AB IGM NEGATIVE
[2018-07-22 20:46] LABS: HEPATITIS A AB IGM NEGATIVE (NEGATIVE)
[2018-07-22] MEDS ORDERED: ZOLPIDEM TARTRATE 5MG TABLET PO PRN (21:00)
[2018-07-22] MEDS ORDERED: EPOETIN ALFA 4000UNITS/ML VIAL SUBCUT SCH (21:00)
[2018-07-23] MEDS: MORPHINE SULFATE 4 MG/ML CPJ (NOT FOR IM USE) IV PRN ×5 (04:01→22:37)
[2018-07-23] MEDS: LEVOTHYROXINE SODIUM 175MCG TABLET PO SCH (06:22)
[2018-07-23] MEDS: PANTOPRAZOLE 40MG DR TABLET PO SCH (06:23)
[2018-07-23 07:28] LABS: BASOPHILS % 0.8 % (0.0-2.0); EOSINOPHILS % 1.9 % (0.0-5.0); HEMATOCRIT. 26.7 % (36.0-48.0); HEMOGLOBIN. 8.7 g/dL (12.0-16.0); LYMPHOCYTES % 20.1 % (20.0-50.0); MEAN CORPUSCULAR HEMOGLOBIN 30.6 pg (28.0-32.0); MEAN CORPUSCULAR VOLUME 93.9 fL (81.0-99.0); MEAN PLATELET VOLUME 7.8 fl (7.4-10.4); MONOCYTES % 12.2 % (2.0-8.0); PLATELET 284 x1000/uL (130-400); RED BLOOD CELL COUNT 2.84 mill/uL (4.2-5.4); RED CELL DISTRIBUTION WIDTH 19.1 % (11.6-14.6)
[2018-07-23] MEDS: DOCUSATE SODIUM 100MG CAPSULE PO SCH ×2 (07:51→17:39)
[2018-07-23] MEDS: SEVELAMER CARBONATE 800 MG TABLET PO SCH ×3 (07:51→17:39)
[2018-07-23 08:00] VITALS: BP 108/60
[2018-07-23 08:20] LABS: INR 1.1; PROTHROMBIN TIME 11.4 sec (9.1-11.1)
[2018-07-23 12:00] VITALS: BP 96/58
[2018-07-23] MEDS: CINACALCET HCL 60MG TABLET PO SCH (13:24)
[2018-07-23 16:00] VITALS: BP 91/58
[2018-07-23 19:56] VITALS: BP 116/69
[2018-07-23] MEDS: CARVEDILOL 3.125 MG TABLET PO SCH (21:00)
[2018-07-23] MEDS: GABAPENTIN 300MG CAPSULE PO SCH (23:13)
[2018-07-24] VITALS (7 sets, daily range): BP systolic 90–104; BP diastolic 57–66
[2018-07-24] MEDS: MORPHINE SULFATE 4 MG/ML CPJ (NOT FOR IM USE) IV PRN ×3 (04:10→17:57)
[2018-07-24] MEDS: GABAPENTIN 300MG CAPSULE PO SCH ×2 (06:16→12:40)
[2018-07-24] MEDS: LEVOTHYROXINE SODIUM 175MCG TABLET PO SCH (06:24)
[2018-07-24] MEDS: PANTOPRAZOLE 40MG DR TABLET PO SCH (06:24)
[2018-07-24 06:56] LABS: BASOPHILS % 0.6 % (0.0-2.0); EOSINOPHILS % 2.7 % (0.0-5.0); HEMATOCRIT. 27.3 % (36.0-48.0); HEMOGLOBIN. 8.7 g/dL (12.0-16.0); LYMPHOCYTES % 17.5 % (20.0-50.0); MEAN CORPUSCULAR HEMOGLOBIN 29.9 pg (28.0-32.0); MEAN CORPUSCULAR VOLUME 93.3 fL (81.0-99.0); MEAN PLATELET VOLUME 7.5 fl (7.4-10.4); MONOCYTES % 14.2 % (2.0-8.0); PLATELET 284 x1000/uL (130-400); RED BLOOD CELL COUNT 2.92 mill/uL (4.2-5.4); RED CELL DISTRIBUTION WIDTH 19.1 % (11.6-14.6)
[2018-07-24] MEDS: CARVEDILOL 3.125 MG TABLET PO SCH (08:34)
[2018-07-24] MEDS: SEVELAMER CARBONATE 800 MG TABLET PO SCH ×3 (08:35→17:05)
[2018-07-24] MEDS: DOCUSATE SODIUM 100MG CAPSULE PO SCH ×2 (08:35→17:06)
[2018-07-24] MEDS: CINACALCET HCL 60MG TABLET PO SCH (12:40)
[2018-07-24] MEDS ORDERED: CARVEDILOL 3.125 MG TABLET PO SCH (13:30)
[2018-07-24 16:14] LABS: T4 FREE 1.12 ng/dL (0.76-1.46)
[2018-07-24] MEDS ORDERED: CARVEDILOL 6.25 MG TABLET PO SCH (21:00)
[2018-07-24] MEDS ORDERED: EPOETIN ALFA 10000UNITS/ML VIAL SUBCUT SCH (21:00)
== END 2018-07-24 19:35 | disposition home or self-care (01) | DRG 291 ==
LOC: ER 00:19 → 6WST 04:18 → EDBEDREQ 04:21 → EDBEDREQTM 04:21 → ENRESERV 10:15
PROVIDERS: ADMIT Internal Medicine; ATTEND Internal Medicine
PROC: 5A1D70Z Performance of Urinary Filtration, Intermittent, Less than 6 Hours Per Day (ICD-10-PCS; 2018-07-22)
PROC: 5A1D70Z Performance of Urinary Filtration, Intermittent, Less than 6 Hours Per Day (ICD-10-PCS; 2018-07-23)
PROC: 5A1D70Z Performance of Urinary Filtration, Intermittent, Less than 6 Hours Per Day (ICD-10-PCS; principal; 2018-07-24)
DX: I13.2 Hypertensive heart and chronic kidney disease with heart failure and with stage 5 chronic kidney disease, or end stage renal disease (principal); I50.23 Acute on chronic systolic (congestive) heart failure; N18.6 End stage renal disease; I31.3 Pericardial effusion (noninflammatory); R18.8 Other ascites; E44.0 Moderate protein-calorie malnutrition; R10.31 Right lower quadrant pain; I42.0 Dilated cardiomyopathy; M19.90 Unspecified osteoarthritis, unspecified site; E03.9 Hypothyroidism, unspecified; G62.9 Polyneuropathy, unspecified; F17.210 Nicotine dependence, cigarettes, uncomplicated; D63.8 Anemia in other chronic diseases classified elsewhere; G89.4 Chronic pain syndrome; K21.9 Gastro-esophageal reflux disease without esophagitis; L97.529 Non-pressure chronic ulcer of other part of left foot with unspecified severity; N25.0 Renal osteodystrophy; N28.1 Cyst of kidney, acquired; R16.2 Hepatomegaly with splenomegaly, not elsewhere classified; E88.09 Other disorders of plasma-protein metabolism, not elsewhere classified; F19.10 Other psychoactive substance abuse, uncomplicated; B18.2 Chronic viral hepatitis C; Z82.49 Family history of ischemic heart disease and other diseases of the circulatory system; Z86.718 Personal history of other venous thrombosis and embolism; Z91.81 History of falling; Z95.810 Presence of automatic (implantable) cardiac defibrillator; Z98.891 History of uterine scar from previous surgery; Z99.2 Dependence on renal dialysis; Z88.1 Allergy status to other antibiotic agents; Z88.8 Allergy status to other drugs, medicaments and biological substances; Z79.899 Other long term (current) drug therapy; Z68.24 Body mass index [BMI] 24.0-24.9, adult
CPT/HCPCS: 36415; 71045; 74176; 76700; 78582; 80048; 82270; 82607; 82728; 82746; 83540; 83550; 83605; 83735; 84439; 84443; 84481; 84484; 86705; 86709; 86803; 87340; 93306; 99285; A9558; J0885; J2270; J7030

== ENCOUNTER 2018-08-21 20:23 | Inpatient (IN) | payer MEDICARE, MEDICAID ==
[~2018-08-21] VITALS: Ht 170.2 cm; Wt 54.9 kg
[~2018-08-21 20:23] MED LIST changes: -LORA0.5T2 PO; -RENAVITE
[2018-08-21] MEDS ORDERED: SODIUM CHLORIDE 0.9% 1000ML BAG (SEPSIS BOLUS) IV ONE (21:30)
[2018-08-21 22:58] LABS: BASOPHILS % 0.6 % (0.0-2.0); EOSINOPHILS % 5.8 % (0.0-5.0); HEMATOCRIT. 30.1 % (36.0-48.0); HEMOGLOBIN. 9.8 g/dL (12.0-16.0); MEAN CORPUSCULAR HEMOGLOBIN 31.2 pg (28.0-32.0); MEAN CORPUSCULAR VOLUME 95.3 fL (81.0-99.0); MEAN PLATELET VOLUME 7.7 fl (7.4-10.4); NEUTROPHILS % 60.6 % (40.0-76.0); PLATELET 150 x1000/uL (130-400); RED BLOOD CELL COUNT 3.16 mill/uL (4.2-5.4); RED CELL DISTRIBUTION WIDTH 21.6 % (11.6-14.6)
[2018-08-21 23:03] LABS: CHLORIDE 103 mEq/L (98-107)
[2018-08-21 23:07] LABS: INR 1.1; PROTHROMBIN TIME 11.4 sec (9.1-11.1)
[2018-08-21 23:11] LABS: ETHANOL BLOOD < 10 mg/dL
[2018-08-21] MEDS ORDERED: MEROPENEM 1,000 MG in SODIUM CHLORIDE 0.9% 100 ML IV ONE (23:30)
[2018-08-21] MEDS ORDERED: VANCOMYCIN 1 G PREMIX 200 ML IV ONE (23:30)
[2018-08-22] MEDS ORDERED: GUAIFENESIN 200MG/10ML SUGAR FREE UDC PO PRN (06:15)
[2018-08-22] MEDS ORDERED: ONDANSETRON HCL 4MG/2ML INJ IV PRN (06:15)
[2018-08-22] MEDS ORDERED: DIPHENHYDRAMINE 50MG/ML VIAL IV PRN (06:15)
[2018-08-22] MEDS ORDERED: MAGNESIUM/ALUMINUM HYDROXIDE/SIMETHICONE 30ML UDC PO PRN (06:15)
[2018-08-22] MEDS ORDERED: ACETAMINOPHEN 325MG TABLET PO PRN (06:15)
[2018-08-22] MEDS ORDERED: CLONIDINE 0.1MG TABLET PO PRN (06:15)
[2018-08-22] MEDS ORDERED: DOCUSATE SODIUM 100MG CAPSULE PO PRN (06:15)
[2018-08-22] MEDS: HYDROCODONE/ACETAMINOPHEN 5/325MG TABLET PO PRN (10:50)
[2018-08-22] MEDS: MIDODRINE HCL 2.5MG TABLET PO SCH ×2 (13:08→17:00)
[2018-08-22] MEDS: HYDROMORPHONE HCL/PF 2MG/ML CPJ IV PRN (14:55)
[2018-08-22 16:40] VITALS: BP 123/90
[2018-08-22] MEDS ORDERED: NA PHOS,M-B/NA PHOS,DI-BA ENEMA 118ML PR PRN (18:00)
[2018-08-22 20:00] VITALS: BP 91/61
[2018-08-23 00:30] VITALS: BP 104/65
[2018-08-23 04:00] VITALS: BP 96/64
[2018-08-23 07:04] LABS: CHLORIDE 104 mEq/L (98-107)
[2018-08-23 08:00] VITALS: BP 107/63
[2018-08-23] MEDS: MIDODRINE HCL 2.5MG TABLET PO SCH ×3 (09:40→17:21)
[2018-08-23 09:54] LABS: HEMATOCRIT. 36.6 % (36.0-48.0); MEAN CORPUSCULAR VOLUME 98.2 fL (81.0-99.0); MEAN PLATELET VOLUME 8.5 fl (7.4-10.4); PLATELET 176 x1000/uL (130-400); RED BLOOD CELL COUNT 3.72 mill/uL (4.2-5.4); RED CELL DISTRIBUTION WIDTH 21.8 % (11.6-14.6)
[2018-08-23 09:56] LABS: HEMOGLOBIN. 11.2 g/dL (12.0-16.0)
[2018-08-23 10:42] LABS: NUCLEATED RED BLOOD CELLS 1 /100 WBC; PLATELET ESTIMATE NORMAL
[2018-08-23 12:00] VITALS: BP 91/61
[2018-08-23 16:00] VITALS: BP 99/72
[2018-08-23] MEDS ORDERED: LORAZEPAM 2MG/ML CPJ IV PRN (17:15)
[2018-08-23 20:00] VITALS: BP 103/77
[2018-08-23] MEDS: HYDROCODONE/ACETAMINOPHEN 5/325MG TABLET PO PRN (20:08)
[2018-08-23] MEDS ORDERED: EPOETIN ALFA 4000UNITS/ML VIAL SUBCUT SCH (21:00)
[2018-08-23] MEDS: HYDROMORPHONE HCL/PF 2MG/ML CPJ IV PRN (22:35)
[2018-08-24] VITALS: BP 100/61
[2018-08-24 04:00] VITALS: BP 107/67
[2018-08-24] MEDS: MIDODRINE HCL 2.5MG TABLET PO SCH (08:53)
[2018-08-24 10:36] VITALS: BP 107/67
== END 2018-08-24 15:06 | disposition home health service (06) | DRG 871 ==
LOC: ER 20:23 → 8WST 23:52 → EDBEDREQ 23:54 → EDBEDREQTM 23:54 → ENRESERV 08-22 08:40 → CANRESERV 08-22 08:40 → EDBEDREQSVC 08-22 09:50 → ENRESERV 08-22 14:31 → 8WST 08-23 15:15
PROVIDERS: ADMIT Hospitalist; ATTEND Hospitalist
PROC: 5A1D70Z Performance of Urinary Filtration, Intermittent, Less than 6 Hours Per Day (ICD-10-PCS; principal; 2018-08-22)
DX: A41.9 Sepsis, unspecified organism (principal); N18.6 End stage renal disease; I13.2 Hypertensive heart and chronic kidney disease with heart failure and with stage 5 chronic kidney disease, or end stage renal disease; I42.9 Cardiomyopathy, unspecified; F11.20 Opioid dependence, uncomplicated; E46 Unspecified protein-calorie malnutrition; Z68.1 Body mass index [BMI] 19.9 or less, adult; G89.4 Chronic pain syndrome; M79.605 Pain in left leg; I95.9 Hypotension, unspecified; I25.10 Atherosclerotic heart disease of native coronary artery without angina pectoris; I50.9 Heart failure, unspecified; M19.90 Unspecified osteoarthritis, unspecified site; Z82.49 Family history of ischemic heart disease and other diseases of the circulatory system; Z98.891 History of uterine scar from previous surgery; Z99.2 Dependence on renal dialysis; Z88.2 Allergy status to sulfonamides; Z88.8 Allergy status to other drugs, medicaments and biological substances; Z95.810 Presence of automatic (implantable) cardiac defibrillator; Z79.899 Other long term (current) drug therapy; Z88.1 Allergy status to other antibiotic agents; Z86.718 Personal history of other venous thrombosis and embolism; Z87.19 Personal history of other diseases of the digestive system; Z87.11 Personal history of peptic ulcer disease
CPT/HCPCS: 36415; 71045; 83605; 84145; 84484; 86850; 86900; 93005; 96365; 96366; 97162; 99291; G0482; J1170; J1200; J2060; J2185; J3370; J7030; J7050

== ENCOUNTER 2018-09-14 15:15 | Inpatient (IN) | payer MEDICARE, MEDICAID ==
[~2018-09-14] VITALS: Ht 165.1 cm; Wt 61.7 kg
[2018-09-14] MEDS ORDERED: HYDROCODONE/ACETAMINOPHEN 5/325MG TABLET PO STA (15:30)
[2018-09-14] MEDS ORDERED: CALCIUM GLUCONATE 1,000 MG in DEXT 5% WATER 100 ML IV ONE (18:00)
[2018-09-14] MEDS ORDERED: INSULIN REGULAR (HUMULIN R) 300UNITS/3ML IV ONE (18:00)
[2018-09-14] MEDS ORDERED: ALBUTEROL (0.083%) 2.5MG/3ML NEB HHN SCH (18:00)
[2018-09-14] MEDS ORDERED: SODIUM POLYSTYRENE SULFONATE 15 G/60 ML BOT PO ONE (18:00)
[2018-09-14] MEDS ORDERED: DEXTROSE 50% WATER 50ML SYRINGE IV ONE (18:00)
[2018-09-14] MEDS ORDERED: SODIUM BICARBONATE 8.4% 1 MEQ/ML 50ML SYR IV ONE (18:00)
[2018-09-14 20:30] VITALS: BP 121/71
[2018-09-14] MEDS ORDERED: GUAIFENESIN 200MG/10ML SUGAR FREE UDC PO PRN (20:30)
[2018-09-14] MEDS ORDERED: ONDANSETRON HCL 4MG/2ML INJ IV PRN (20:30)
[2018-09-14] MEDS ORDERED: DOCUSATE SODIUM 100MG CAPSULE PO PRN (20:30)
[2018-09-14] MEDS ORDERED: ACETAMINOPHEN 325MG TABLET PO PRN (20:30)
[2018-09-14] MEDS ORDERED: CLONIDINE 0.1MG TABLET PO PRN (20:30)
[2018-09-14] MEDS ORDERED: IPRATROPIUM/ALBUTEROL 0.5-3(2.5)MG/3ML NEB INH PRN (20:30)
[2018-09-14] MEDS ORDERED: HYDROCODONE/ACETAMINOPHEN 5/325MG TABLET PO PRN (20:30)
[2018-09-14] MEDS ORDERED: DIPHENHYDRAMINE 50MG/ML VIAL IV NR (21:45)
[2018-09-14 22:00] VITALS: BP 107/69
[2018-09-14 22:06] LABS: CREATINE KINASE MB FRACTION 3.7 ng/mL (0.5-3.6)
[2018-09-15] VITALS (12 sets, daily range): BP systolic 93–140; BP diastolic 51–88
[2018-09-15 07:10] LABS: BASOPHILS % 0.8 % (0.0-2.0); EOSINOPHILS % 10.3 % (0.0-5.0); HEMATOCRIT. 38.9 % (36.0-48.0); HEMOGLOBIN. 12.4 g/dL (12.0-16.0); LYMPHOCYTES % 29.6 % (20.0-50.0); MEAN CORPUSCULAR HEMOGLOBIN 31.5 pg (28.0-32.0); MEAN CORPUSCULAR VOLUME 98.6 fL (81.0-99.0); MONOCYTES % 10.9 % (2.0-8.0); NEUTROPHILS % 48.4 % (40.0-76.0); PLATELET 120 x1000/uL (130-400); RED BLOOD CELL COUNT 3.95 mill/uL (4.2-5.4); RED CELL DISTRIBUTION WIDTH 22.2 % (11.6-14.6)
[2018-09-15 08:21] LABS: CREATINE KINASE MB FRACTION 3.3 ng/mL (0.5-3.6)
[2018-09-15] MEDS: SEVELAMER CARBONATE 800 MG TABLET PO SCH ×3 (08:53→19:00)
[2018-09-15] MEDS ORDERED: SEVELAMER CARBONATE PO SCH (09:00)
[2018-09-15] MEDS: DIPHENHYDRAMINE 25MG CAPSULE PO PRN ×3 (09:04→20:29)
[2018-09-15] MEDS: HYDROCODONE/ACETAMINOPHEN 10/325MG TABLET PO PRN ×3 (09:06→20:33)
[2018-09-15] MEDS: LEVOTHYROXINE SODIUM 175MCG TABLET PO SCH (09:12)
[2018-09-15 10:18] LABS: PLATELET ESTIMATE SLIGHTLY DECREASED
[2018-09-15] MEDS ORDERED: ONDANSETRON HCL 4MG/2ML INJ IV PRN (13:00)
[2018-09-15] MEDS ORDERED: ACETAMINOPHEN 325MG TABLET PO PRN (13:00)
[2018-09-15] MEDS ORDERED: DOCUSATE SODIUM 100MG CAPSULE PO PRN (13:00)
[2018-09-15] MEDS ORDERED: CLONIDINE 0.1MG TABLET PO PRN (13:00)
[2018-09-15] MEDS ORDERED: MAGNESIUM/ALUMINUM HYDROXIDE/SIMETHICONE 30ML UDC PO PRN (13:00)
[2018-09-15] MEDS: FOLIC ACID 1MG TABLET PO SCH (13:18)
[2018-09-15] MEDS: PANTOPRAZOLE 40MG DR TABLET PO SCH (13:18)
[2018-09-15] MEDS: HYDROMORPHONE HCL/PF 2MG/ML CPJ IV PRN ×2 (14:15→22:50)
[2018-09-15] MEDS: LORAZEPAM 0.5MG TABLET PO PRN ×2 (19:45→20:29)
[2018-09-15] MEDS: ZOLPIDEM TARTRATE 5MG TABLET PO PRN (22:49)
[2018-09-16] VITALS (12 sets, daily range): BP systolic 86–137; BP diastolic 40–94
[2018-09-16] MEDS: PANTOPRAZOLE 40MG DR TABLET PO SCH (06:25)
[2018-09-16] MEDS: LEVOTHYROXINE SODIUM 175MCG TABLET PO SCH (06:25)
[2018-09-16 06:46] LABS: BASOPHILS % 1.2 % (0.0-2.0); EOSINOPHILS % 1.2 % (0.0-5.0); HEMATOCRIT. 43.5 % (36.0-48.0); HEMOGLOBIN. 13.7 g/dL (12.0-16.0); MEAN CORPUSCULAR HEMOGLOBIN 31.7 pg (28.0-32.0); MEAN CORPUSCULAR VOLUME 100.7 fL (81.0-99.0); MEAN PLATELET VOLUME 8.1 fl (7.4-10.4); MONOCYTES % 11.3 % (2.0-8.0); NEUTROPHILS % 71.3 % (40.0-76.0); PLATELET 167 x1000/uL (130-400); RED BLOOD CELL COUNT 4.32 mill/uL (4.2-5.4); RED CELL DISTRIBUTION WIDTH 21.8 % (11.6-14.6)
[2018-09-16] MEDS: SEVELAMER CARBONATE 800 MG TABLET PO SCH ×3 (08:00→18:41)
[2018-09-16] MEDS: FOLIC ACID 1MG TABLET PO SCH (08:24)
[2018-09-16] MEDS: HYDROCODONE/ACETAMINOPHEN 10/325MG TABLET PO PRN ×2 (13:01→21:38)
[2018-09-16] MEDS: HYDROMORPHONE HCL/PF 2MG/ML CPJ IV PRN (15:48)
[2018-09-16] MEDS: DIPHENHYDRAMINE 25MG CAPSULE PO PRN (21:38)
[2018-09-16] MEDS: ZOLPIDEM TARTRATE 5MG TABLET PO PRN (22:37)
[2018-09-16] MEDS: LORAZEPAM 0.5MG TABLET PO PRN (22:37)
[2018-09-17] VITALS (20 sets, daily range): BP systolic 92–128; BP diastolic 46–79
[2018-09-17] MEDS: HYDROMORPHONE HCL/PF 2MG/ML CPJ IV PRN ×2 (00:53→20:28)
[2018-09-17 06:43] LABS: BASOPHILS % 0.4 % (0.0-2.0); HEMATOCRIT. 40.6 % (36.0-48.0); HEMOGLOBIN. 12.8 g/dL (12.0-16.0); LYMPHOCYTES % 10.1 % (20.0-50.0); MEAN CORPUSCULAR HEMOGLOBIN 31.8 pg (28.0-32.0); MEAN CORPUSCULAR VOLUME 100.6 fL (81.0-99.0); MONOCYTES % 6.8 % (2.0-8.0); NEUTROPHILS % 80.7 % (40.0-76.0); PLATELET 136 x1000/uL (130-400); RED BLOOD CELL COUNT 4.04 mill/uL (4.2-5.4); RED CELL DISTRIBUTION WIDTH 22.3 % (11.6-14.6)
[2018-09-17] MEDS: PANTOPRAZOLE 40MG DR TABLET PO SCH (06:55)
[2018-09-17] MEDS: LEVOTHYROXINE SODIUM 175MCG TABLET PO SCH (06:55)
[2018-09-17] MEDS ORDERED: SODIUM POLYSTYRENE SULFONATE 15 G/60 ML BOT PO NR (09:00)
[2018-09-17] MEDS: FOLIC ACID 1MG TABLET PO SCH (09:42)
[2018-09-17] MEDS: SEVELAMER CARBONATE 800 MG TABLET PO SCH ×3 (09:42→18:37)
[2018-09-17] MEDS ORDERED: DEXTROSE 50% WATER 50ML SYRINGE IV NR (10:14)
[2018-09-17] MEDS: BLOOD SUGAR DIAGNOSTIC STRIP TEST SCH ×3 (12:12→20:14)
[2018-09-17] MEDS: HYDROCODONE/ACETAMINOPHEN 10/325MG TABLET PO PRN (14:04)
[2018-09-17 16:36] LABS: INR 1.1; PARTIAL THROMBOPLASTIN TIME 40.6 sec (23.4-31.0); PROTHROMBIN TIME 10.7 sec (9.1-11.1)
[2018-09-17] MEDS: DIPHENHYDRAMINE 25MG CAPSULE PO PRN (22:38)
[2018-09-18] VITALS (14 sets, daily range): BP systolic 91–126; BP diastolic 56–74
[2018-09-18] MEDS: BLOOD SUGAR DIAGNOSTIC STRIP TEST SCH (00:49)
[2018-09-18] MEDS: LEVOTHYROXINE SODIUM 175MCG TABLET PO SCH (06:29)
[2018-09-18] MEDS: PANTOPRAZOLE 40MG DR TABLET PO SCH (06:29)
[2018-09-18] MEDS: HYDROMORPHONE HCL/PF 2MG/ML CPJ IV PRN ×2 (06:32→16:36)
[2018-09-18] MEDS: SEVELAMER CARBONATE 800 MG TABLET PO SCH ×3 (07:43→18:53)
[2018-09-18] MEDS: FOLIC ACID 1MG TABLET PO SCH (10:03)
[2018-09-18] MEDS: HYDROCODONE/ACETAMINOPHEN 10/325MG TABLET PO PRN ×2 (10:05→20:12)
[2018-09-18] MEDS ORDERED: SODIUM BICARBONATE 4% (2.4MEQ) 5ML VIAL IV ONE (13:05)
[2018-09-18] MEDS ORDERED: IOHEXOL-300 100 ML BOTTLE ONE (13:05)
[2018-09-18] MEDS ORDERED: LIDOCAINE HCL 1% 20ML VIAL (Pyxis) INJ ONE (13:05)
[2018-09-18] MEDS ORDERED: FENTANYL CITRATE/PF 50MCG/ML 2ML VIAL ONE (14:17)
[2018-09-18] MEDS ORDERED: FENTANYL CITRATE/PF 50MCG/ML 2ML VIAL IV ONE (14:30)
[2018-09-19] VITALS (9 sets, daily range): BP systolic 91–114; BP diastolic 51–89
[2018-09-19] MEDS ORDERED: SODIUM CHLORIDE 0.9% 500 ML IV PRN (00:15)
[2018-09-19] MEDS: HYDROMORPHONE HCL/PF 2MG/ML CPJ IV PRN ×3 (04:30→20:40)
[2018-09-19] MEDS: LEVOTHYROXINE SODIUM 50MCG TABLET PO SCH (07:30)
[2018-09-19] MEDS: PANTOPRAZOLE 40MG DR TABLET PO SCH (07:30)
[2018-09-19] MEDS: SEVELAMER CARBONATE 800 MG TABLET PO SCH ×3 (08:00→19:17)
[2018-09-19] MEDS: FOLIC ACID 1MG TABLET PO SCH (08:25)
[2018-09-19 08:41] LABS: BASOPHILS % 1.4 % (0.0-2.0); EOSINOPHILS % 7.1 % (0.0-5.0); HEMATOCRIT. 35.9 % (36.0-48.0); HEMOGLOBIN. 11.4 g/dL (12.0-16.0); LYMPHOCYTES % 34.1 % (20.0-50.0); MEAN CORPUSCULAR HEMOGLOBIN 31.2 pg (28.0-32.0); MEAN CORPUSCULAR VOLUME 97.8 fL (81.0-99.0); MEAN PLATELET VOLUME 8.2 fl (7.4-10.4); MONOCYTES % 5.1 % (2.0-8.0); NEUTROPHILS % 52.3 % (40.0-76.0); PLATELET 125 x1000/uL (130-400); RED BLOOD CELL COUNT 3.67 mill/uL (4.2-5.4); RED CELL DISTRIBUTION WIDTH 21.1 % (11.6-14.6)
[2018-09-19] MEDS ORDERED: LIDOCAINE HCL 1% 20ML VIAL (Pyxis) INJ ONE (11:48)
[2018-09-19] MEDS ORDERED: GELATIN SPONGE,ABSORBABLE 12-7MM SPONGE ONE (11:48)
[2018-09-19] MEDS ORDERED: PAPAVERINE HCL 30 MG/ML 2ML IV ONE (11:48)
[2018-09-19] MEDS ORDERED: BUPIVACAINE HCL/PF 0.25% (2.5MG/ML) 10ML ONE (11:49)
[2018-09-19] MEDS ORDERED: HEPARIN SODIUM 1,000 UNIT/1ML VIAL IV ONE (11:49)
[2018-09-19] MEDS ORDERED: BACITRACIN 50,000 UNITS/VIAL ONE (11:49)
[2018-09-19] MEDS ORDERED: THROMBIN (BOVINE) 5000 UNITS/VIAL TOP ONE (11:49)
[2018-09-19] MEDS ORDERED: NORMAL SALINE 0.9% 10 ML SYR ONE (11:49)
[2018-09-19] MEDS ORDERED: BACITRACIN 15GM TUBE TOP ONE (12:43)
[2018-09-19] MEDS ORDERED: NEOSTIGMINE METHYLSULFATE 1MG/ML 10 ML VIAL ONE (13:14)
[2018-09-19] MEDS ORDERED: FENTANYL CITRATE/PF 50MCG/ML 2ML VIAL ONE (13:14)
[2018-09-19] MEDS ORDERED: MIDAZOLAM HCL 2 MG/2 ML VIAL ONE (13:15)
[2018-09-19] MEDS ORDERED: ROCURONIUM BROMIDE 10MG/ML VIAL 5ML IV ONE (13:15)
[2018-09-19] MEDS ORDERED: GLYCOPYRROLATE 0.2 MG/ML 2ML VIAL ONE ×2 (13:15→15:41)
[2018-09-19] MEDS ORDERED: PROPOFOL 200MG/20ML VIAL IV ONE (13:15)
[2018-09-19] MEDS ORDERED: ONDANSETRON HCL 4MG/2ML INJ ONE (13:36)
[2018-09-19] MEDS ORDERED: DEXAMETHASONE 4MG/ML 1ML VIAL ONE (13:36)
[2018-09-19] MEDS ORDERED: MEPERIDINE HCL/PF 25MG/ML CPJ IV PRN (14:30)
[2018-09-19] MEDS ORDERED: HYDROMORPHONE HCL/PF 2MG/ML CPJ IV PRN (14:30)
[2018-09-19] MEDS ORDERED: LABETALOL HCL 20MG/4ML CARPUJECT IV PRN (14:30)
[2018-09-19] MEDS ORDERED: ONDANSETRON HCL 4MG/2ML INJ IV PRN (14:30)
[2018-09-19] MEDS ORDERED: HEPARIN 1000 UNITS/ML 10ML ONE (15:34)
[2018-09-19] MEDS ORDERED: PROTAMINE SULFATE 10MG/ML VIAL 5ML IV ONE (15:34)
[2018-09-19] MEDS: ZOLPIDEM TARTRATE 5MG TABLET PO PRN (22:04)
[2018-09-20] VITALS (12 sets, daily range): BP systolic 96–127; BP diastolic 56–85
[2018-09-20] MEDS: HYDROMORPHONE HCL/PF 2MG/ML CPJ IV PRN ×5 (01:14→20:24)
[2018-09-20] MEDS: PANTOPRAZOLE 40MG DR TABLET PO SCH (08:32)
[2018-09-20] MEDS: LEVOTHYROXINE SODIUM 50MCG TABLET PO SCH (08:32)
[2018-09-20] MEDS: FOLIC ACID 1MG TABLET PO SCH (08:32)
[2018-09-20] MEDS: SEVELAMER CARBONATE 800 MG TABLET PO SCH ×3 (08:33→17:41)
[2018-09-20 09:36] LABS: BASOPHILS % 0.2 % (0.0-2.0); EOSINOPHILS % 0.1 % (0.0-5.0); HEMOGLOBIN. 11.7 g/dL (12.0-16.0); LYMPHOCYTES % 14.8 % (20.0-50.0); MEAN CORPUSCULAR HEMOGLOBIN 31.1 pg (28.0-32.0); MEAN CORPUSCULAR VOLUME 103.2 fL (81.0-99.0); MEAN PLATELET VOLUME 8.1 fl (7.4-10.4); NEUTROPHILS % 72.9 % (40.0-76.0); PLATELET 116 x1000/uL (130-400); RED BLOOD CELL COUNT 3.78 mill/uL (4.2-5.4); RED CELL DISTRIBUTION WIDTH 21.2 % (11.6-14.6)
[2018-09-21] VITALS (12 sets, daily range): BP systolic 92–129; BP diastolic 62–86
[2018-09-21] MEDS: HYDROMORPHONE HCL/PF 2MG/ML CPJ IV PRN ×5 (00:33→18:15)
[2018-09-21] MEDS: DIPHENHYDRAMINE 25MG CAPSULE PO PRN (00:34)
[2018-09-21] MEDS: SEVELAMER CARBONATE 800 MG TABLET PO SCH ×3 (09:17→18:13)
[2018-09-21] MEDS: FOLIC ACID 1MG TABLET PO SCH (09:17)
[2018-09-21] MEDS: LEVOTHYROXINE SODIUM 50MCG TABLET PO SCH (09:17)
[2018-09-21] MEDS: PANTOPRAZOLE 40MG DR TABLET PO SCH (09:17)
[2018-09-21] MEDS: IPRATROPIUM/ALBUTEROL 0.5-3(2.5)MG/3ML NEB INH PRN ×2 (09:23→16:48)
[2018-09-22] VITALS (9 sets, daily range): BP systolic 96–118; BP diastolic 61–85
[2018-09-22] MEDS: DIPHENHYDRAMINE 25MG CAPSULE PO PRN ×2 (00:36→10:41)
[2018-09-22] MEDS: HYDROMORPHONE HCL/PF 2MG/ML CPJ IV PRN ×2 (00:38→04:42)
[2018-09-22 07:27] LABS: BASOPHILS % 0.8 % (0.0-2.0); EOSINOPHILS % 3.8 % (0.0-5.0); HEMATOCRIT. 35.5 % (36.0-48.0); HEMOGLOBIN. 11.3 g/dL (12.0-16.0); LYMPHOCYTES % 24.9 % (20.0-50.0); MEAN CORPUSCULAR HEMOGLOBIN 30.7 pg (28.0-32.0); MEAN CORPUSCULAR VOLUME 96.6 fL (81.0-99.0); MEAN PLATELET VOLUME 8.1 fl (7.4-10.4); MONOCYTES % 12.8 % (2.0-8.0); NEUTROPHILS % 57.7 % (40.0-76.0); PLATELET 139 x1000/uL (130-400); RED BLOOD CELL COUNT 3.67 mill/uL (4.2-5.4); RED CELL DISTRIBUTION WIDTH 20.8 % (11.6-14.6)
[2018-09-22] MEDS: SEVELAMER CARBONATE 800 MG TABLET PO SCH ×2 (08:50→14:04)
[2018-09-22] MEDS: FOLIC ACID 1MG TABLET PO SCH (08:51)
[2018-09-22] MEDS: PANTOPRAZOLE 40MG DR TABLET PO SCH (08:51)
[2018-09-22] MEDS: LEVOTHYROXINE SODIUM 50MCG TABLET PO SCH (08:51)
[2018-09-22] MEDS: MORPHINE SULFATE 10 MG/ML CPJ IV PRN ×2 (10:42→14:28)
[2018-09-22] MEDS ORDERED: HYDROCODONE/ACETAMINOPHEN 5/325MG TABLET PO PRN (16:45)
[2018-09-30] MEDS ORDERED: MORPHINE SULFATE 4 MG/ML CPJ (NOT FOR IM USE) IV PRN (08:30)
== END 2018-09-22 18:06 | disposition home or self-care (01) | DRG 252 ==
LOC: ER 15:15 → 5EST 17:59 → EDBEDREQ 18:08 → EDBEDREQTM 18:08 → ENRESERV 19:34
PROVIDERS: ADMIT Internal Medicine; ATTEND Internal Medicine
PROC: 5A1D70Z Performance of Urinary Filtration, Intermittent, Less than 6 Hours Per Day (ICD-10-PCS; principal; 2018-09-14)
PROC: 5A1D70Z Performance of Urinary Filtration, Intermittent, Less than 6 Hours Per Day (ICD-10-PCS; 2018-09-15)
PROC: 5A1D70Z Performance of Urinary Filtration, Intermittent, Less than 6 Hours Per Day (ICD-10-PCS; 2018-09-17)
PROC: 5A1D70Z Performance of Urinary Filtration, Intermittent, Less than 6 Hours Per Day (ICD-10-PCS; 2018-09-18)
PROC: B51W1ZZ Fluoroscopy of Dialysis Shunt/Fistula using Low Osmolar Contrast (ICD-10-PCS; 2018-09-18)
PROC: B41G1ZZ Fluoroscopy of Left Lower Extremity Arteries using Low Osmolar Contrast (ICD-10-PCS; 2018-09-18)
PROC: 5A1D70Z Performance of Urinary Filtration, Intermittent, Less than 6 Hours Per Day (ICD-10-PCS; 2018-09-21)
PROC: 041L0JL Bypass Left Femoral Artery to Popliteal Artery with Synthetic Substitute, Open Approach (ICD-10-PCS; 2018-09-21)
DX: T82.898A Other specified complication of vascular prosthetic devices, implants and grafts, initial encounter (principal); N18.6 End stage renal disease; E43 Unspecified severe protein-calorie malnutrition; I13.2 Hypertensive heart and chronic kidney disease with heart failure and with stage 5 chronic kidney disease, or end stage renal disease; I50.22 Chronic systolic (congestive) heart failure; I31.3 Pericardial effusion (noninflammatory); F11.20 Opioid dependence, uncomplicated; I42.9 Cardiomyopathy, unspecified; E87.5 Hyperkalemia; Z99.2 Dependence on renal dialysis; D69.6 Thrombocytopenia, unspecified; G89.4 Chronic pain syndrome; J40 Bronchitis, not specified as acute or chronic; D63.8 Anemia in other chronic diseases classified elsewhere; B18.2 Chronic viral hepatitis C; D72.819 Decreased white blood cell count, unspecified; F12.90 Cannabis use, unspecified, uncomplicated; G62.9 Polyneuropathy, unspecified; I25.10 Atherosclerotic heart disease of native coronary artery without angina pectoris; L97.529 Non-pressure chronic ulcer of other part of left foot with unspecified severity; R26.9 Unspecified abnormalities of gait and mobility; M19.90 Unspecified osteoarthritis, unspecified site; Y84.1 Kidney dialysis as the cause of abnormal reaction of the patient, or of later complication, without mention of misadventure at the time of the procedure; Z72.0 Tobacco use; Z82.49 Family history of ischemic heart disease and other diseases of the circulatory system; Z86.718 Personal history of other venous thrombosis and embolism; Z95.810 Presence of automatic (implantable) cardiac defibrillator; Z95.828 Presence of other vascular implants and grafts; Z88.1 Allergy status to other antibiotic agents; Z88.2 Allergy status to sulfonamides; Y92.89 Other specified places as the place of occurrence of the external cause
CPT/HCPCS: 36415; 36901; 71045; 80048; 80061; 82550; 82553; 82962; 84132; 84484; 93005; 93923; 93971; 94640; 96374; 96375; 97116; 97162; 99152; 99153; 99291; C1725; C1768; C1769; C1887; J0610; J1100; J1170; J1200; J1644; J1815; J2250; J2270; J2405; J2440; J2704; J2710; J2720; J3010; J3490; J7050; J7060; J7620; Q0163; Q9967; G0500

== ENCOUNTER 2018-09-29 16:47 | Inpatient (IN) | payer MEDICARE, MEDICAID ==
[~2018-09-29] VITALS: Ht 165.1 cm; Wt 68.0 kg
[2018-09-29] MEDS ORDERED: ONDANSETRON HCL 4MG/2ML INJ IV ONE (18:15)
[2018-09-29] MEDS ORDERED: FENTANYL CITRATE/PF 50MCG/ML 2ML VIAL IV ONE (18:15)
[2018-09-29 18:47] LABS: HEMATOCRIT. 39.1 % (36.0-48.0); HEMOGLOBIN. 12.3 g/dL (12.0-16.0); MEAN CORPUSCULAR HEMOGLOBIN 30.4 pg (28.0-32.0); MEAN CORPUSCULAR VOLUME 96.9 fL (81.0-99.0); MEAN PLATELET VOLUME 8.1 fl (7.4-10.4); PLATELET 224 x1000/uL (130-400); RED BLOOD CELL COUNT 4.03 mill/uL (4.2-5.4); RED CELL DISTRIBUTION WIDTH 21.3 % (11.6-14.6)
[2018-09-29 18:54] LABS: PARTIAL THROMBOPLASTIN TIME 37.3 sec (23.4-31.0); PROTHROMBIN TIME 10.1 sec (9.1-11.1)
[2018-09-29 20:08] LABS: PLATELET ESTIMATE NORMAL
[2018-09-29] MEDS ORDERED: HYDROCODONE/ACETAMINOPHEN 5/325MG TABLET PO ONE (20:30)
[2018-09-29] MEDS ORDERED: HEPARIN 5000 UNITS/ML VIAL IV ONE (21:00)
[2018-09-29] MEDS ORDERED: HEPARIN 25,000 UNITS PREMIX 500 ML IV SCH (21:00)
[2018-09-29] MEDS ORDERED: HYDROCODONE/ACETAMINOPHEN 5/325MG TABLET PO PRN (23:30)
[2018-09-29] MEDS ORDERED: DOCUSATE SODIUM 100MG CAPSULE PO PRN (23:30)
[2018-09-29] MEDS ORDERED: ACETAMINOPHEN 325MG TABLET PO PRN (23:30)
[2018-09-29] MEDS ORDERED: IPRATROPIUM/ALBUTEROL 0.5-3(2.5)MG/3ML NEB INH PRN (23:30)
[2018-09-29] MEDS ORDERED: ONDANSETRON HCL 4MG/2ML INJ IV PRN (23:30)
[2018-09-29] MEDS ORDERED: CLONIDINE 0.1MG TABLET PO PRN (23:30)
[2018-09-29] MEDS: HEPARIN 25,000 UNITS PREMIX 500 ML IV SCH (23:33)
[2018-09-30] VITALS (41 sets, daily range): BP systolic 26–164; BP diastolic 14–125
[2018-09-30] MEDS: HEPARIN 25,000 UNITS PREMIX 500 ML IV SCH (00:32)
[2018-09-30] MEDS ORDERED: HEPARIN 25,000 UNITS PREMIX 500 ML IV SCH (00:45)
[2018-09-30] MEDS ORDERED: HEPARIN BOLUS PRN aPTT <36 IV (00:45)
[2018-09-30] MEDS ORDERED: HEPARIN BOLUS PRN aPTT 37-44 IV (00:45)
[2018-09-30 03:03] LABS: EOSINOPHILS % 6.8 % (0.0-5.0); HEMATOCRIT. 35.7 % (36.0-48.0); HEMOGLOBIN. 11.1 g/dL (12.0-16.0); LYMPHOCYTES % 29.8 % (20.0-50.0); MEAN CORPUSCULAR HEMOGLOBIN 30.4 pg (28.0-32.0); MEAN CORPUSCULAR VOLUME 97.7 fL (81.0-99.0); MEAN PLATELET VOLUME 8.1 fl (7.4-10.4); MONOCYTES % 7.4 % (2.0-8.0); PLATELET 219 x1000/uL (130-400); RED BLOOD CELL COUNT 3.65 mill/uL (4.2-5.4); RED CELL DISTRIBUTION WIDTH 21.1 % (11.6-14.6)
[2018-09-30] MEDS ORDERED: BACITRACIN 15GM TUBE TOP ONE (08:19)
[2018-09-30] MEDS ORDERED: GELATIN SPONGE,ABSORBABLE 12-7MM SPONGE ONE (08:19)
[2018-09-30] MEDS ORDERED: THROMBIN (BOVINE) 5000 UNITS/VIAL TOP ONE (08:20)
[2018-09-30] MEDS ORDERED: HEPARIN SODIUM 1,000 UNIT/1ML VIAL IV ONE (08:20)
[2018-09-30] MEDS ORDERED: BACITRACIN 50,000 UNITS/VIAL ONE (08:20)
[2018-09-30] MEDS ORDERED: LIDOCAINE HCL 1% 20ML VIAL (Pyxis) INJ ONE ×2 (08:42→13:56)
[2018-09-30] MEDS ORDERED: MIDAZOLAM HCL 2 MG/2 ML VIAL ONE (08:42)
[2018-09-30] MEDS ORDERED: FENTANYL CITRATE/PF 50MCG/ML 2ML VIAL ONE ×2 (08:42→14:42)
[2018-09-30] MEDS ORDERED: CEFAZOLIN SODIUM 1000MG/VIAL ONE (08:43)
[2018-09-30] MEDS ORDERED: SODIUM CHLORIDE 0.9% 10ML VIAL ONE (08:43)
[2018-09-30] MEDS ORDERED: BUPIVACAINE HCL/PF 0.5% (5MG/ML) 10ML ONE (08:43)
[2018-09-30] MEDS ORDERED: DIPHENHYDRAMINE 50MG/ML VIAL ONE (08:43)
[2018-09-30] MEDS ORDERED: SODIUM BICARBONATE 4% (2.4MEQ) 5ML VIAL IV ONE (13:56)
[2018-09-30] MEDS ORDERED: LIDOCAINE HCL/EPINEPHRINE 1%-EPI 1:100,000 20 ML VIAL ONE (13:56)
[2018-09-30] MEDS ORDERED: IOHEXOL-300 50 ML BOTTLE IV ONE (14:37)
[2018-09-30] MEDS ORDERED: FENTANYL CITRATE/PF 50MCG/ML 2ML VIAL IV ONE (14:50)
[2018-09-30] MEDS ORDERED: MORPHINE SULFATE 2 MG/ML CPJ (NOT FOR IM USE) IV PRN (22:45)
[2018-10-01] VITALS (10 sets, daily range): BP systolic 88–126; BP diastolic 54–88
[2018-10-01] MEDS: MORPHINE SULFATE 4 MG/ML CPJ (NOT FOR IM USE) IV PRN ×3 (01:35→14:03)
[2018-10-01] MEDS ORDERED: LEVOTHYROXINE SODIUM 175MCG TABLET PO SCH (06:50)
[2018-10-01 07:16] LABS: BASOPHILS % 1.3 % (0.0-2.0); EOSINOPHILS % 3.7 % (0.0-5.0); HEMATOCRIT. 35.3 % (36.0-48.0); LYMPHOCYTES % 20.6 % (20.0-50.0); MEAN CORPUSCULAR HEMOGLOBIN 30.1 pg (28.0-32.0); MEAN CORPUSCULAR VOLUME 96.2 fL (81.0-99.0); MEAN PLATELET VOLUME 8.1 fl (7.4-10.4); MONOCYTES % 8.1 % (2.0-8.0); NEUTROPHILS % 66.3 % (40.0-76.0); PLATELET 195 x1000/uL (130-400); RED BLOOD CELL COUNT 3.66 mill/uL (4.2-5.4); RED CELL DISTRIBUTION WIDTH 20.7 % (11.6-14.6)
[2018-10-01] MEDS ORDERED: HEPARIN SODIUM 1,000 UNIT/1ML VIAL IV NR (08:45)
[2018-10-01] MEDS ORDERED: DIPHENHYDRAMINE 50MG CAPSULE PO PRN (09:15)
== END 2018-10-01 18:07 | disposition home health service (06) | DRG 252 ==
LOC: ER 16:47 → 3WST 21:31 → ENRESERV 22:46
PROVIDERS: ADMIT Internal Medicine; ATTEND Internal Medicine
PROC: 04LL0ZZ Occlusion of Left Femoral Artery, Open Approach (ICD-10-PCS; principal; 2018-09-30)
PROC: 04L Lower Arteries, Occlusion (ICD-10-PCS; 2018-09-30)
PROC: 5A1D70Z Performance of Urinary Filtration, Intermittent, Less than 6 Hours Per Day (ICD-10-PCS; 2018-09-30)
PROC: 0JH63XZ Insertion of Tunneled Vascular Access Device into Chest Subcutaneous Tissue and Fascia, Percutaneous Approach (ICD-10-PCS; 2018-09-30)
PROC: 06H033Z Insertion of Infusion Device into Inferior Vena Cava, Percutaneous Approach (ICD-10-PCS; 2018-09-30)
PROC: B5191ZA Fluoroscopy of Inferior Vena Cava using Low Osmolar Contrast, Guidance (ICD-10-PCS; 2018-09-30)
PROC: B549ZZA Ultrasonography of Inferior Vena Cava, Guidance (ICD-10-PCS; 2018-09-30)
PROC: 5A1D70Z Performance of Urinary Filtration, Intermittent, Less than 6 Hours Per Day (ICD-10-PCS; 2018-10-01)
DX: T82.898A Other specified complication of vascular prosthetic devices, implants and grafts, initial encounter (principal); N18.6 End stage renal disease; E43 Unspecified severe protein-calorie malnutrition; I50.22 Chronic systolic (congestive) heart failure; D68.9 Coagulation defect, unspecified; I13.2 Hypertensive heart and chronic kidney disease with heart failure and with stage 5 chronic kidney disease, or end stage renal disease; G89.4 Chronic pain syndrome; E03.9 Hypothyroidism, unspecified; F12.90 Cannabis use, unspecified, uncomplicated; F17.210 Nicotine dependence, cigarettes, uncomplicated; Y83.2 Surgical operation with anastomosis, bypass or graft as the cause of abnormal reaction of the patient, or of later complication, without mention of misadventure at the time of the procedure; Z99.2 Dependence on renal dialysis; Z68.25 Body mass index [BMI] 25.0-25.9, adult; Z88.1 Allergy status to other antibiotic agents; Z88.2 Allergy status to sulfonamides; Y92.89 Other specified places as the place of occurrence of the external cause; Z95.810 Presence of automatic (implantable) cardiac defibrillator; Z79.899 Other long term (current) drug therapy; Z87.11 Personal history of peptic ulcer disease; Z86.718 Personal history of other venous thrombosis and embolism
CPT/HCPCS: 36415; 36558; 71045; 75827; 76937; 77001; 80048; 80061; 83735; 84443; 93923; 93971; 96374; 96375; 99152; 99153; 99291; C1725; C1750; C1769; C1893; J0690; J1200; J1642; J1644; J2250; J2270; J2405; J3010; J3490; Q0163; Q9967; G0500

== ENCOUNTER 2018-11-04 14:00 | Inpatient (IN) | payer MEDICARE, MEDICAID ==
[~2018-11-04] VITALS: Ht 165.1 cm; Wt 42.6 kg
[2018-11-04] MEDS ORDERED: LORAZEPAM 2MG/ML CPJ IV ONE (14:30)
[2018-11-04 15:14] LABS: HEMATOCRIT. 49.2 % (36.0-48.0); HEMOGLOBIN. 15.4 g/dL (12.0-16.0); MEAN CORPUSCULAR VOLUME 95.8 fL (81.0-99.0); MEAN PLATELET VOLUME 8.8 fl (7.4-10.4); PLATELET 115 x1000/uL (130-400); RED BLOOD CELL COUNT 5.14 mill/uL (4.2-5.4); RED CELL DISTRIBUTION WIDTH 21.9 % (11.6-14.6)
[2018-11-04 15:15] LABS: CHLORIDE 100 mEq/L (98-107)
[2018-11-04 15:20] LABS: ETHANOL BLOOD < 10 mg/dL
[2018-11-04 15:48] LABS: PLATELET ESTIMATE DECREASED
[2018-11-04] MEDS ORDERED: ASPIRIN 81MG TABLET PO ONE (16:30)
[2018-11-04] MEDS ORDERED: ONDANSETRON HCL 4MG/2ML INJ IV PRN (17:30)
[2018-11-04 17:45] LABS: INR 1.1; PROTHROMBIN TIME 11.5 sec (9.1-11.1)
[2018-11-04 17:53] LABS: PARTIAL THROMBOPLASTIN TIME > 200.0 sec (23.4-31.0)
[2018-11-05] MEDS ORDERED: DEXTROSE 50% WATER 50ML SYRINGE IV ONE ×3 (02:31→03:02)
[2018-11-05 05:37] LABS: HEMATOCRIT. 41.4 % (36.0-48.0); HEMOGLOBIN. 13.2 g/dL (12.0-16.0); MEAN CORPUSCULAR HEMOGLOBIN 30.1 pg (28.0-32.0); MEAN CORPUSCULAR VOLUME 94.7 fL (81.0-99.0); MEAN PLATELET VOLUME 8.8 fl (7.4-10.4); PLATELET 110 x1000/uL (130-400); RED BLOOD CELL COUNT 4.37 mill/uL (4.2-5.4); RED CELL DISTRIBUTION WIDTH 21.5 % (11.6-14.6)
[2018-11-05 06:20] LABS: PHOSPHORUS 8.9 mg/dL (2.5-4.9)
[2018-11-05 06:25] LABS: INR 1.1; PROTHROMBIN TIME 10.8 sec (9.1-11.1)
[2018-11-05 06:44] VITALS: BP 90/65
[2018-11-05] MEDS ORDERED: CALC667T5 MT (06:51)
[2018-11-05] MEDS ORDERED: ASPI-1159 MT (06:51)
[2018-11-05] MEDS ORDERED: GABA-529 MT (06:51)
[2018-11-05] MEDS ORDERED: CARV3.1242 MT (06:51)
[2018-11-05] MEDS ORDERED: CALC0.253 MT (06:51)
[2018-11-05 07:43] LABS: PLATELET ESTIMATE SLIGHTLY DECREASED
[2018-11-05] MEDS: LEVOTHYROXINE SODIUM 175MCG TABLET PO SCH ×2 (07:45→09:25)
[2018-11-05] MEDS: PANTOPRAZOLE 40MG DR TABLET PO SCH ×2 (07:45→09:25)
[2018-11-05 08:00] VITALS: BP 80/51
[2018-11-05] MEDS: DOCUSATE SODIUM 100MG CAPSULE PO SCH (09:25)
[2018-11-05] MEDS: SEVELAMER CARBONATE 800 MG TABLET PO SCH ×3 (09:25→17:50)
[2018-11-05] MEDS: ASPIRIN 81MG TABLET PO SCH (09:25)
[2018-11-05 10:17] VITALS: BP 80/51
[2018-11-05 12:00] VITALS: BP 96/65
[2018-11-05] MEDS: MIDODRINE HCL 5MG TABLET PO SCH (13:40)
[2018-11-05] MEDS: CINACALCET HCL 60MG TABLET PO SCH (13:40)
[2018-11-05 16:00] VITALS: BP 120/74
[2018-11-05] MEDS: LORAZEPAM 2MG/ML CPJ IV PRN (18:19)
[2018-11-05 20:56] VITALS: BP 91/61
[2018-11-05] MEDS ORDERED: HALOPERIDOL 1MG TABLET PO PRN (21:00)
[2018-11-06 04:00] VITALS: BP 111/76
[2018-11-06] MEDS: SEVELAMER CARBONATE 800 MG TABLET PO SCH ×5 (07:50→18:24)
[2018-11-06 08:00] VITALS: BP 114/79
[2018-11-06] MEDS: ASPIRIN 81MG TABLET PO SCH (08:36)
[2018-11-06] MEDS: DOCUSATE SODIUM 100MG CAPSULE PO SCH (08:36)
[2018-11-06] MEDS: MIDODRINE HCL 5MG TABLET PO SCH (08:36)
[2018-11-06] MEDS: CINACALCET HCL 60MG TABLET PO SCH (12:20)
[2018-11-06] MEDS: LORAZEPAM 2MG/ML CPJ IV PRN (12:34)
[2018-11-06] MEDS: LACTULOSE 20G/30ML UDC PO SCH ×2 (14:00→21:20)
[2018-11-06 16:00] VITALS: BP 136/94
[2018-11-06 20:39] VITALS: BP 129/80
[2018-11-06] MEDS: DEXT 5%/0.45% NACL 1000ML 1,000 ML IV SCH (21:21)
[2018-11-07] VITALS: BP 127/87
[2018-11-07 00:02] LABS: HEMATOCRIT. 40.4 % (36.0-48.0); HEMOGLOBIN. 12.8 g/dL (12.0-16.0); MEAN CORPUSCULAR HEMOGLOBIN 30.2 pg (28.0-32.0); MEAN CORPUSCULAR VOLUME 95.4 fL (81.0-99.0); MEAN PLATELET VOLUME 8.8 fl (7.4-10.4); PLATELET 113 x1000/uL (130-400); RED BLOOD CELL COUNT 4.23 mill/uL (4.2-5.4); RED CELL DISTRIBUTION WIDTH 21.3 % (11.6-14.6)
[2018-11-07 00:10] LABS: PARTIAL THROMBOPLASTIN TIME 42.8 sec (23.4-31.0); PROTHROMBIN TIME 10.4 sec (9.1-11.1)
[2018-11-07 02:02] LABS: VITAMIN B12 SERUM 1235 pg/mL (211-911)
[2018-11-07 04:00] VITALS: BP 131/78
[2018-11-07] MEDS: LACTULOSE 20G/30ML UDC PO SCH ×3 (06:00→20:39)
[2018-11-07 08:00] VITALS: BP 117/70
[2018-11-07] MEDS: MIDODRINE HCL 5MG TABLET PO SCH (08:58)
[2018-11-07] MEDS: PANTOPRAZOLE 40MG DR TABLET PO SCH (08:58)
[2018-11-07] MEDS: LEVOTHYROXINE SODIUM 175MCG TABLET PO SCH (08:58)
[2018-11-07] MEDS: ASPIRIN 81MG TABLET PO SCH (08:58)
[2018-11-07] MEDS: SEVELAMER CARBONATE 800 MG TABLET PO SCH ×3 (08:58→18:23)
[2018-11-07] MEDS: DOCUSATE SODIUM 100MG CAPSULE PO SCH (09:00)
[2018-11-07] MEDS ORDERED: DEXT 5%/0.45% NACL 1000ML 1,000 ML IV SCH (10:15)
[2018-11-07 12:38] VITALS: BP 110/69
[2018-11-07] MEDS: CALCITRIOL 0.25MCG CAPSULE PO SCH (12:53)
[2018-11-07 13:52] LABS: PLATELET ESTIMATE SLIGHTLY DECREASED
[2018-11-07] MEDS: ENOXAPARIN 30MG/0.3ML SYR SUBCUT SCH (14:00)
[2018-11-07] MEDS: DEXT 5%/0.45% NACL 1000ML 1,000 ML IV SCH (14:00)
[2018-11-07] MEDS: ACETAMINOPHEN 325MG TABLET PO PRN (15:05)
[2018-11-07 16:24] LABS: *AMPHETAMINES SCREEN URINE NEGATIVE (NEGATIVE); *BARBITURATES SCREEN URINE NEGATIVE (NEGATIVE); *BENZODIAZEPINES SCREEN URINE NEGATIVE (NEGATIVE); *COCAINE SCREEN URINE NEGATIVE (NEGATIVE); CANNABINOID URINE SCREEN NEGATIVE (NEGATIVE); METHADONE URINE SCREEN NEGATIVE (NEGATIVE); OPIATES URINE SCREEN NEGATIVE (NEGATIVE); PHENCYCLIDINE URINE SCREEN NEGATIVE (NEGATIVE)
[2018-11-07 16:55] VITALS: BP 116/59
[2018-11-07 20:00] VITALS: BP 119/56
[2018-11-08] VITALS: BP 120/60
[2018-11-08] MEDS: LACTULOSE 20G/30ML UDC PO SCH ×5 (06:00→21:29)
[2018-11-08] MEDS: LEVOTHYROXINE SODIUM 175MCG TABLET PO SCH ×2 (06:52→06:56)
[2018-11-08] MEDS: PANTOPRAZOLE 40MG DR TABLET PO SCH ×2 (06:52→06:55)
[2018-11-08] MEDS: SEVELAMER CARBONATE 800 MG TABLET PO SCH ×4 (07:50→17:50)
[2018-11-08] MEDS: MIDODRINE HCL 5MG TABLET PO SCH ×2 (09:00→09:49)
[2018-11-08] MEDS: ASPIRIN 81MG TABLET PO SCH ×2 (09:00→09:48)
[2018-11-08 09:30] VITALS: BP 118/58
[2018-11-08] MEDS: DOCUSATE SODIUM 100MG CAPSULE PO SCH (09:48)
[2018-11-08] MEDS: RISPERIDONE 0.5MG TABLET PO SCH ×2 (09:48→21:28)
[2018-11-08] MEDS: CALCITRIOL 0.25MCG CAPSULE PO SCH (09:52)
[2018-11-08 12:30] VITALS: BP 104/50
[2018-11-08 16:00] VITALS: BP 112/92
[2018-11-08 16:36] LABS: BASOPHILS % 1.2 % (0.0-2.0); EOSINOPHILS % 3.2 % (0.0-5.0); HEMATOCRIT. 42.8 % (36.0-48.0); HEMOGLOBIN. 13.4 g/dL (12.0-16.0); MEAN CORPUSCULAR VOLUME 95.7 fL (81.0-99.0); MEAN PLATELET VOLUME 9.1 fl (7.4-10.4); MONOCYTES % 7.3 % (2.0-8.0); NEUTROPHILS % 56.3 % (40.0-76.0); PLATELET 109 x1000/uL (130-400); RED BLOOD CELL COUNT 4.47 mill/uL (4.2-5.4); RED CELL DISTRIBUTION WIDTH 21.7 % (11.6-14.6)
[2018-11-08] MEDS: ENOXAPARIN 30MG/0.3ML SYR SUBCUT SCH (17:00)
[2018-11-08] MEDS: ACETAMINOPHEN 325MG TABLET PO PRN (17:01)
[2018-11-08 19:42] VITALS: BP 112/92
[2018-11-08 20:00] VITALS: BP 132/82
[2018-11-09] MEDS ORDERED: FAMOTIDINE 20MG TABLET PO SCH (09:00)
== END 2018-11-08 22:20 | DRG 91 ==
LOC: ER 14:00 → 6WST 16:30 → EDBEDREQ 16:35 → ENRESERV 23:37 → CANRESERV 23:37
PROVIDERS: ADMIT Internal Medicine; ATTEND Internal Medicine
PROC: 5A1D70Z Performance of Urinary Filtration, Intermittent, Less than 6 Hours Per Day (ICD-10-PCS; 2018-11-05)
PROC: 5A1D70Z Performance of Urinary Filtration, Intermittent, Less than 6 Hours Per Day (ICD-10-PCS; 2018-11-07)
PROC: 5A1D70Z Performance of Urinary Filtration, Intermittent, Less than 6 Hours Per Day (ICD-10-PCS; principal; 2018-11-08)
DX: G92 Toxic encephalopathy (principal); N18.6 End stage renal disease; N25.81 Secondary hyperparathyroidism of renal origin; I13.2 Hypertensive heart and chronic kidney disease with heart failure and with stage 5 chronic kidney disease, or end stage renal disease; E46 Unspecified protein-calorie malnutrition; Z68.1 Body mass index [BMI] 19.9 or less, adult; I95.9 Hypotension, unspecified; D69.6 Thrombocytopenia, unspecified; E03.9 Hypothyroidism, unspecified; E16.2 Hypoglycemia, unspecified; E78.5 Hyperlipidemia, unspecified; E83.51 Hypocalcemia; E83.39 Other disorders of phosphorus metabolism; I73.9 Peripheral vascular disease, unspecified; G89.4 Chronic pain syndrome; I50.9 Heart failure, unspecified; Z88.2 Allergy status to sulfonamides; Z95.810 Presence of automatic (implantable) cardiac defibrillator; Z99.2 Dependence on renal dialysis; Z88.1 Allergy status to other antibiotic agents
CPT/HCPCS: 36415; 71045; 80048; 80305; 82140; 82607; 82962; 83735; 83880; 83970; 84100; 84443; 84484; 93005; 96374; 96375; 97161; 99285; J1650; J2060

== ENCOUNTER 2018-11-22 08:15 | Inpatient (IN) | payer MEDICARE, MEDICAID ==
[~2018-11-22] VITALS: Ht 165.1 cm; Wt 52.2 kg
[~2018-11-22 08:15] MED LIST changes: +ASPI-1159 MT; +CALC0.253 MT; +CALC667T5 MT; +CARV3.1242 MT; +GABA-529 MT
[2018-11-22 10:06] LABS: CHLORIDE 111 mEq/L (98-107)
[2018-11-22 10:25] LABS: HEMOGLOBIN. 8.5 g/dL (12.0-16.0); MEAN CORPUSCULAR HEMOGLOBIN 30.9 pg (28.0-32.0); MEAN CORPUSCULAR VOLUME 98.1 fL (81.0-99.0); MEAN PLATELET VOLUME 8.2 fl (7.4-10.4); PLATELET 205 x1000/uL (130-400); RED BLOOD CELL COUNT 2.75 mill/uL (4.2-5.4); RED CELL DISTRIBUTION WIDTH 20.9 % (11.6-14.6)
[2018-11-22 13:07] LABS: PLATELET ESTIMATE NORMAL
[2018-11-22] MEDS ORDERED: GUAIFENESIN 200MG/10ML SUGAR FREE UDC PO PRN (14:45)
[2018-11-22] MEDS ORDERED: CLONIDINE 0.1MG TABLET PO PRN (14:45)
[2018-11-22] MEDS ORDERED: ONDANSETRON HCL 4MG/2ML INJ IV PRN (14:45)
[2018-11-22] MEDS ORDERED: DOCUSATE SODIUM 100MG CAPSULE PO PRN (14:45)
[2018-11-22] MEDS ORDERED: ACETAMINOPHEN 325MG TABLET PO PRN (14:45)
[2018-11-22] MEDS ORDERED: MAGNESIUM/ALUMINUM HYDROXIDE/SIMETHICONE 30ML UDC PO PRN (14:45)
[2018-11-22] MEDS ORDERED: IPRATROPIUM/ALBUTEROL 0.5-3(2.5)MG/3ML NEB INH PRN (14:45)
[2018-11-22] MEDS: HYDROCODONE/ACETAMINOPHEN 5/325MG TABLET PO PRN ×2 (15:53→21:01)
[2018-11-22 15:57] LABS: PHOSPHORUS 8.5 mg/dL (2.5-4.9)
[2018-11-22] MEDS: DIPHENHYDRAMINE 50MG/ML VIAL IV PRN (21:27)
[2018-11-22 23:01] LABS: CREATINE KINASE 110 IU/L (26-192)
[2018-11-23] VITALS (8 sets, daily range): BP systolic 100–143; BP diastolic 28–64
[2018-11-23] MEDS ORDERED: EPOETIN ALFA 10000UNITS/ML VIAL SUBCUT SCH (01:00)
[2018-11-23] MEDS: DIPHENHYDRAMINE 50MG/ML VIAL IV PRN ×4 (01:02→20:39)
[2018-11-23] MEDS ORDERED: HALO2TAB MT (01:44)
[2018-11-23] MEDS ORDERED: LEVO125T8 MT (01:44)
[2018-11-23] MEDS ORDERED: MIDO5TAB MT (01:44)
[2018-11-23] MEDS ORDERED: SEVE800T8 MT (01:44)
[2018-11-23] MEDS ORDERED: LACT10SO7 MT (01:44)
[2018-11-23] MEDS ORDERED: RISP0.5T19 MT (01:44)
[2018-11-23] MEDS: HYDROCODONE/ACETAMINOPHEN 5/325MG TABLET PO PRN ×4 (02:08→19:52)
[2018-11-23] MEDS: NICOTINE 14MG PATCH TD SCH (09:00)
[2018-11-23 09:57] LABS: BASOPHILS % 0.7 % (0.0-2.0); EOSINOPHILS % 2.9 % (0.0-5.0); HEMATOCRIT. 33.8 % (36.0-48.0); HEMOGLOBIN. 10.4 g/dL (12.0-16.0); LYMPHOCYTES % 20.4 % (20.0-50.0); MEAN CORPUSCULAR HEMOGLOBIN 29.9 pg (28.0-32.0); MEAN CORPUSCULAR VOLUME 96.9 fL (81.0-99.0); MEAN PLATELET VOLUME 8.3 fl (7.4-10.4); MONOCYTES % 11.7 % (2.0-8.0); NEUTROPHILS % 64.3 % (40.0-76.0); PLATELET 177 x1000/uL (130-400); RED BLOOD CELL COUNT 3.48 mill/uL (4.2-5.4); RED CELL DISTRIBUTION WIDTH 20.6 % (11.6-14.6)
[2018-11-23] MEDS ORDERED: HEPARIN SODIUM 1,000 UNIT/1ML VIAL IV NR (10:00)
[2018-11-23 10:04] LABS: CHLORIDE 105 mEq/L (98-107)
[2018-11-23 10:12] LABS: LDL CHOLESTEROL 52 mg/dL (5-100)
[2018-11-23 10:14] LABS: CREATINE KINASE 114 IU/L (26-192); HDL CHOLESTEROL 68 mg/dL (40-59)
[2018-11-24 01:51] VITALS: BP 123/54
[2018-11-24] MEDS: DIPHENHYDRAMINE 50MG/ML VIAL IV PRN ×3 (01:54→13:36)
[2018-11-24 04:08] VITALS: BP 96/56
[2018-11-24 07:35] LABS: HEMATOCRIT. 25.1 % (36.0-48.0); HEMOGLOBIN. 7.9 g/dL (12.0-16.0); MEAN CORPUSCULAR VOLUME 95.3 fL (81.0-99.0); MEAN PLATELET VOLUME 7.9 fl (7.4-10.4); PLATELET 186 x1000/uL (130-400); RED BLOOD CELL COUNT 2.64 mill/uL (4.2-5.4); RED CELL DISTRIBUTION WIDTH 20.2 % (11.6-14.6)
[2018-11-24 08:26] VITALS: BP 123/78
[2018-11-24] MEDS: NICOTINE 14MG PATCH TD SCH (08:41)
[2018-11-24] MEDS: HYDROCODONE/ACETAMINOPHEN 5/325MG TABLET PO PRN (10:15)
[2018-11-24 12:24] VITALS: BP 106/71
[2018-11-24 13:11] LABS: PLATELET ESTIMATE NORMAL
[2018-11-24 16:52] VITALS: BP 111/78
== END 2018-11-24 19:45 | DRG 640 ==
LOC: ER 08:24 → 6WST 10:56 → EDBEDREQ 11:03 → EDBEDREQTM 11:03 → ENRESERV 23:09
PROVIDERS: ADMIT Internal Medicine; ATTEND Internal Medicine
PROC: 5A1D70Z Performance of Urinary Filtration, Intermittent, Less than 6 Hours Per Day (ICD-10-PCS; principal; 2018-11-23)
PROC: 5A1D70Z Performance of Urinary Filtration, Intermittent, Less than 6 Hours Per Day (ICD-10-PCS; 2018-11-24)
DX: E87.70 Fluid overload, unspecified (principal); N18.6 End stage renal disease; I13.2 Hypertensive heart and chronic kidney disease with heart failure and with stage 5 chronic kidney disease, or end stage renal disease; E46 Unspecified protein-calorie malnutrition; N25.81 Secondary hyperparathyroidism of renal origin; I31.3 Pericardial effusion (noninflammatory); I82.411 Acute embolism and thrombosis of right femoral vein; I50.22 Chronic systolic (congestive) heart failure; Z68.1 Body mass index [BMI] 19.9 or less, adult; I42.0 Dilated cardiomyopathy; E87.5 Hyperkalemia; Z99.2 Dependence on renal dialysis; E83.39 Other disorders of phosphorus metabolism; I95.9 Hypotension, unspecified; E83.42 Hypomagnesemia; E03.9 Hypothyroidism, unspecified; E11.22 Type 2 diabetes mellitus with diabetic chronic kidney disease; Z95.810 Presence of automatic (implantable) cardiac defibrillator; G89.4 Chronic pain syndrome; F16.90 Hallucinogen use, unspecified, uncomplicated; I34.0 Nonrheumatic mitral (valve) insufficiency; F12.90 Cannabis use, unspecified, uncomplicated; D70.9 Neutropenia, unspecified; D63.1 Anemia in chronic kidney disease; Z86.718 Personal history of other venous thrombosis and embolism; Z88.1 Allergy status to other antibiotic agents; Z88.2 Allergy status to sulfonamides; Z82.49 Family history of ischemic heart disease and other diseases of the circulatory system; Z87.11 Personal history of peptic ulcer disease; Z95.828 Presence of other vascular implants and grafts; Z79.899 Other long term (current) drug therapy; Z79.82 Long term (current) use of aspirin
CPT/HCPCS: 36415; 71045; 80048; 80061; 82550; 83036; 83735; 84100; 84132; 84443; 93005; 93306; 93970; 94640; 97166; 99285; J0885; J1200; J1644

== ENCOUNTER 2018-12-13 10:31 | Inpatient (IN) | payer MEDICARE, MEDICAID ==
[~2018-12-13] VITALS: Ht 165.1 cm; Wt 64.0 kg
[~2018-12-13 10:31] MED LIST changes: +HALO2TAB MT; +LACT10SO7 MT; +LEVO125T8 MT; +MIDO5TAB MT; +RISP0.5T19 MT
[2018-12-13] MEDS ORDERED: HYDROCODONE/ACETAMINOPHEN 5/325MG TABLET PO ONE (11:00)
[2018-12-13 11:52] LABS: HEMATOCRIT. 34.7 % (36.0-48.0); HEMOGLOBIN. 10.9 g/dL (12.0-16.0); MEAN CORPUSCULAR VOLUME 94.9 fL (81.0-99.0); MEAN PLATELET VOLUME 7.9 fl (7.4-10.4); PLATELET 186 x1000/uL (130-400); RED BLOOD CELL COUNT 3.65 mill/uL (4.2-5.4); RED CELL DISTRIBUTION WIDTH 19.7 % (11.6-14.6)
[2018-12-13 11:59] LABS: CHLORIDE 98 mEq/L (98-107)
[2018-12-13 12:12] LABS: PLATELET ESTIMATE NORMAL
[2018-12-13] MEDS ORDERED: CLONIDINE 0.1MG TABLET PO PRN (14:15)
[2018-12-13] MEDS ORDERED: HYDROCODONE/ACETAMINOPHEN 5/325MG TABLET PO PRN (14:15)
[2018-12-13] MEDS ORDERED: ZOLPIDEM TARTRATE 5MG TABLET PO PRN (14:15)
[2018-12-13] MEDS ORDERED: ONDANSETRON HCL 4MG/2ML INJ IV PRN (14:15)
[2018-12-13] MEDS: MORPHINE SULFATE 4 MG/ML CPJ (NOT FOR IM USE) IV PRN ×2 (14:44→19:59)
[2018-12-13] MEDS ORDERED: DIPHENHYDRAMINE 50MG/ML VIAL IV PRN (15:10)
[2018-12-13 18:10] VITALS: BP 113/74
[2018-12-13 20:00] VITALS: BP_SYST 107; BP_SYST 109; BP_DIAS 76
[2018-12-13] MEDS: AMLODIPINE 5MG TABLET PO SCH (21:00)
[2018-12-13] MEDS: DIPHENHYDRAMINE 50MG/ML VIAL IV PRN (23:35)
[2018-12-13] MEDS: ENOXAPARIN 30MG/0.3ML SYR SUBCUT SCH (23:36)
[2018-12-14] VITALS (7 sets, daily range): BP systolic 97–120; BP diastolic 60–70
[2018-12-14] MEDS: MORPHINE SULFATE 4 MG/ML CPJ (NOT FOR IM USE) IV PRN ×5 (01:17→23:25)
[2018-12-14 06:44] LABS: BASOPHILS % 1.2 % (0.0-2.0); EOSINOPHILS % 9.3 % (0.0-5.0); HEMATOCRIT. 31.2 % (36.0-48.0); LYMPHOCYTES % 20.4 % (20.0-50.0); MEAN CORPUSCULAR HEMOGLOBIN 30.4 pg (28.0-32.0); MEAN PLATELET VOLUME 8.2 fl (7.4-10.4); MONOCYTES % 10.2 % (2.0-8.0); NEUTROPHILS % 58.9 % (40.0-76.0); PLATELET 176 x1000/uL (130-400); RED BLOOD CELL COUNT 3.29 mill/uL (4.2-5.4); RED CELL DISTRIBUTION WIDTH 20.4 % (11.6-14.6)
[2018-12-14] MEDS: SEVELAMER CARBONATE 800 MG TABLET PO SCH ×3 (08:24→17:56)
[2018-12-14] MEDS: LEVOTHYROXINE SODIUM 125MCG TABLET PO SCH (08:24)
[2018-12-14] MEDS: AMLODIPINE 5MG TABLET PO SCH ×2 (09:00→20:40)
[2018-12-14] MEDS: DIPHENHYDRAMINE 50MG/ML VIAL IV PRN ×2 (09:49→15:08)
[2018-12-14] MEDS ORDERED: HEPARIN SODIUM 1,000 UNIT/1ML VIAL IV ONE (13:00)
[2018-12-14] MEDS: ENOXAPARIN 30MG/0.3ML SYR SUBCUT SCH (20:58)
[2018-12-15] MEDS: DIPHENHYDRAMINE 50MG/ML VIAL IV PRN ×4 (02:25→22:50)
[2018-12-15 04:00] VITALS: BP_SYST 117; BP_SYST 122; BP_DIAS 67; BP_DIAS 83
[2018-12-15] MEDS: LEVOTHYROXINE SODIUM 125MCG TABLET PO SCH (05:27)
[2018-12-15] MEDS: MORPHINE SULFATE 4 MG/ML CPJ (NOT FOR IM USE) IV PRN ×5 (05:31→22:52)
[2018-12-15 06:32] LABS: BASOPHILS % 0.5 % (0.0-2.0); EOSINOPHILS % 9.1 % (0.0-5.0); HEMATOCRIT. 31.3 % (36.0-48.0); LYMPHOCYTES % 23.3 % (20.0-50.0); MEAN CORPUSCULAR HEMOGLOBIN 30.2 pg (28.0-32.0); MEAN CORPUSCULAR VOLUME 94.3 fL (81.0-99.0); MEAN PLATELET VOLUME 7.8 fl (7.4-10.4); MONOCYTES % 11.8 % (2.0-8.0); NEUTROPHILS % 55.3 % (40.0-76.0); PLATELET 176 x1000/uL (130-400); RED BLOOD CELL COUNT 3.32 mill/uL (4.2-5.4); RED CELL DISTRIBUTION WIDTH 19.8 % (11.6-14.6)
[2018-12-15 07:30] VITALS: BP 108/67
[2018-12-15] MEDS: AMLODIPINE 5MG TABLET PO SCH ×2 (08:24→21:01)
[2018-12-15] MEDS: SEVELAMER CARBONATE 800 MG TABLET PO SCH ×3 (08:32→18:33)
[2018-12-15 11:45] VITALS: BP 130/75
[2018-12-15] MEDS ORDERED: SODIUM POLYSTYRENE SULFONATE 15 G/60 ML BOT PO NR (15:00)
[2018-12-15 16:00] VITALS: BP 126/78
[2018-12-15 20:00] VITALS: BP 118/74
[2018-12-15] MEDS: ENOXAPARIN 30MG/0.3ML SYR SUBCUT SCH (21:00)
[2018-12-16] VITALS: BP 104/66
[2018-12-16 04:00] VITALS: BP 115/81
[2018-12-16 06:15] LABS: BASOPHILS % 0.9 % (0.0-2.0); EOSINOPHILS % 7.4 % (0.0-5.0); HEMOGLOBIN. 10.1 g/dL (12.0-16.0); LYMPHOCYTES % 18.8 % (20.0-50.0); MEAN CORPUSCULAR HEMOGLOBIN 29.6 pg (28.0-32.0); MEAN CORPUSCULAR VOLUME 96.7 fL (81.0-99.0); MEAN PLATELET VOLUME 8.2 fl (7.4-10.4); MONOCYTES % 13.4 % (2.0-8.0); NEUTROPHILS % 59.5 % (40.0-76.0); PLATELET 159 x1000/uL (130-400); RED BLOOD CELL COUNT 3.41 mill/uL (4.2-5.4); RED CELL DISTRIBUTION WIDTH 19.6 % (11.6-14.6)
[2018-12-16] MEDS: MORPHINE SULFATE 4 MG/ML CPJ (NOT FOR IM USE) IV PRN (06:36)
[2018-12-16] MEDS: LEVOTHYROXINE SODIUM 125MCG TABLET PO SCH (07:10)
[2018-12-16] MEDS: SEVELAMER CARBONATE 800 MG TABLET PO SCH ×2 (07:40→12:40)
[2018-12-16 08:00] VITALS: BP 124/86
[2018-12-16] MEDS: AMLODIPINE 5MG TABLET PO SCH ×2 (08:50→23:30)
[2018-12-16] MEDS: DIPHENHYDRAMINE 50MG/ML VIAL IV PRN (09:26)
[2018-12-16 12:00] VITALS: BP 100/66
[2018-12-16] MEDS ORDERED: HEPARIN 5000 UNITS/ML VIAL ONE (12:11)
[2018-12-16] MEDS ORDERED: LIDOCAINE HCL 1% 20ML VIAL (Pyxis) INJ ONE (12:12)
[2018-12-16] MEDS ORDERED: BACITRACIN 15GM TUBE TOP ONE (12:12)
[2018-12-16] MEDS ORDERED: NORMAL SALINE 0.9% 10 ML SYR ONE (12:12)
[2018-12-16] MEDS ORDERED: HEPARIN SODIUM 1,000 UNIT/1ML VIAL IV ONE (12:12)
[2018-12-16] MEDS ORDERED: BUPIVACAINE HCL/PF 0.5% (5MG/ML) 10ML ONE (12:12)
[2018-12-16] MEDS ORDERED: BACITRACIN 50,000 UNITS/VIAL ONE (12:13)
[2018-12-16] MEDS ORDERED: THROMBIN (BOVINE) 5000 UNITS/VIAL TOP ONE (12:13)
[2018-12-16 13:00] LABS: INR 1.1; PROTHROMBIN TIME 10.7 sec (9.1-11.1)
[2018-12-16] MEDS ORDERED: DIPHENHYDRAMINE 25MG CAPSULE PO PRN (13:15)
[2018-12-16] MEDS ORDERED: FENTANYL CITRATE/PF 50MCG/ML 2ML VIAL ONE (15:42)
[2018-12-16] MEDS ORDERED: MIDAZOLAM HCL 2 MG/2 ML VIAL ONE (15:42)
[2018-12-16] MEDS ORDERED: GLYCOPYRROLATE 0.2 MG/ML 2ML VIAL ONE (15:42)
[2018-12-16] MEDS ORDERED: PROPOFOL 200MG/20ML VIAL IV ONE (15:42)
[2018-12-16] MEDS ORDERED: LIDOCAINE HCL/PF 1% 10 MG/ML 5ML VIAL ONE (15:43)
[2018-12-16] MEDS ORDERED: SUCCINYLCHOLINE CHLORIDE 200MG/10ML IV ONE (15:43)
[2018-12-16] MEDS ORDERED: METOCLOPRAMIDE HCL 10MG/2ML VIAL ONE (15:43)
[2018-12-16] MEDS ORDERED: ONDANSETRON HCL 4MG/2ML INJ ONE (15:43)
[2018-12-16] MEDS ORDERED: MORPHINE SULFATE 4 MG/ML CPJ (NOT FOR IM USE) IV PRN ×2 (15:45→17:30)
[2018-12-16] MEDS ORDERED: HEPARIN 1000 UNITS/ML 10ML ONE (16:15)
[2018-12-16] MEDS ORDERED: SODIUM CHLORIDE 0.9% 1,000 ML IV SCH (17:18)
[2018-12-16] MEDS ORDERED: HYDROMORPHONE HCL/PF 2MG/ML CPJ IV PRN (17:30)
[2018-12-16] MEDS ORDERED: MEPERIDINE HCL/PF 25MG/ML CPJ IV PRN (17:30)
[2018-12-16] MEDS ORDERED: ONDANSETRON HCL 4MG/2ML INJ IV PRN (17:30)
[2018-12-16 20:00] VITALS: BP 105/49
[2018-12-16] MEDS: HYDROCODONE/ACETAMINOPHEN 10/325MG TABLET PO PRN (23:31)
[2018-12-17] VITALS (7 sets, daily range): BP systolic 110–133; BP diastolic 59–72
[2018-12-17] MEDS: DIPHENHYDRAMINE 50MG/ML VIAL IV PRN ×3 (02:48→14:59)
[2018-12-17 06:35] LABS: HEMATOCRIT. 28.5 % (36.0-48.0); MEAN CORPUSCULAR HEMOGLOBIN 30.3 pg (28.0-32.0); MEAN CORPUSCULAR VOLUME 96.1 fL (81.0-99.0); MEAN PLATELET VOLUME 7.9 fl (7.4-10.4); PLATELET 169 x1000/uL (130-400); RED BLOOD CELL COUNT 2.96 mill/uL (4.2-5.4); RED CELL DISTRIBUTION WIDTH 19.7 % (11.6-14.6)
[2018-12-17] MEDS: LEVOTHYROXINE SODIUM 125MCG TABLET PO SCH (07:10)
[2018-12-17] MEDS: SEVELAMER CARBONATE 800 MG TABLET PO SCH ×4 (08:15→16:32)
[2018-12-17] MEDS: AMLODIPINE 5MG TABLET PO SCH (08:50)
[2018-12-17 10:16] LABS: PLATELET ESTIMATE NORMAL
[2018-12-17] MEDS: HYDROCODONE/ACETAMINOPHEN 10/325MG TABLET PO PRN ×2 (10:28→16:32)
[2018-12-17] MEDS ORDERED: HYDROCODONE/ACETAMINOPHEN 5/325MG TABLET PO PRN (11:57)
== END 2018-12-17 20:35 | DRG 264 ==
LOC: ER 10:31 → 8WST 13:04 → EDBEDREQ 13:06 → ENRESERV 16:09
PROVIDERS: ADMIT Internal Medicine; ATTEND Internal Medicine
PROC: 5A1D70Z Performance of Urinary Filtration, Intermittent, Less than 6 Hours Per Day (ICD-10-PCS; 2018-12-14)
PROC: 5A1D70Z Performance of Urinary Filtration, Intermittent, Less than 6 Hours Per Day (ICD-10-PCS; 2018-12-15)
PROC: 03170KD Bypass Right Brachial Artery to Upper Arm Vein with Nonautologous Tissue Substitute, Open Approach (ICD-10-PCS; principal; 2018-12-16)
PROC: 5A1D70Z Performance of Urinary Filtration, Intermittent, Less than 6 Hours Per Day (ICD-10-PCS; 2018-12-17)
DX: T82.858A Stenosis of other vascular prosthetic devices, implants and grafts, initial encounter (principal); I50.23 Acute on chronic systolic (congestive) heart failure; N18.6 End stage renal disease; I13.2 Hypertensive heart and chronic kidney disease with heart failure and with stage 5 chronic kidney disease, or end stage renal disease; E44.1 Mild protein-calorie malnutrition; J84.9 Interstitial pulmonary disease, unspecified; I87.1 Compression of vein; I82.511 Chronic embolism and thrombosis of right femoral vein; E46 Unspecified protein-calorie malnutrition; N25.81 Secondary hyperparathyroidism of renal origin; I42.9 Cardiomyopathy, unspecified; I42.0 Dilated cardiomyopathy; E03.9 Hypothyroidism, unspecified; D63.8 Anemia in other chronic diseases classified elsewhere; E87.5 Hyperkalemia; G89.4 Chronic pain syndrome; I73.9 Peripheral vascular disease, unspecified; W06.XXXA Fall from bed, initial encounter; F16.90 Hallucinogen use, unspecified, uncomplicated; Y83.8 Other surgical procedures as the cause of abnormal reaction of the patient, or of later complication, without mention of misadventure at the time of the procedure; I34.0 Nonrheumatic mitral (valve) insufficiency; M53.3 Sacrococcygeal disorders, not elsewhere classified; N25.0 Renal osteodystrophy; Z87.11 Personal history of peptic ulcer disease; Z95.828 Presence of other vascular implants and grafts; Z88.2 Allergy status to sulfonamides; Z88.8 Allergy status to other drugs, medicaments and biological substances; Z99.2 Dependence on renal dialysis; Z79.899 Other long term (current) drug therapy; Z79.82 Long term (current) use of aspirin; Z79.1 Long term (current) use of non-steroidal anti-inflammatories (NSAID); Z68.23 Body mass index [BMI] 23.0-23.9, adult; Y93.89 Activity, other specified; Y92.092 Bedroom in other non-institutional residence as the place of occurrence of the external cause; Y99.8 Other external cause status; Z95.810 Presence of automatic (implantable) cardiac defibrillator
CPT/HCPCS: 36415; 71045; 72100; 72131; 72220; 73562; 80048; 82962; 83880; 84132; 84484; 93005; 97162; 99285; C1768; C1893; J0330; J1200; J1644; J1650; J2250; J2270; J2405; J2704; J2765; J3010; J3490

== ENCOUNTER 2019-01-09 18:31 | Inpatient (IN) | payer MEDICARE, MEDICAID ==
[~2019-01-09] VITALS: Ht 160 cm; Wt 59.0 kg
[2019-01-09] MEDS: DEXTROSE 50% WATER 50ML SYRINGE IV ONE ×2 (18:51→19:29)
[2019-01-09] MEDS ORDERED: SODIUM CHLORIDE 0.9% 500 ML IV ONE ×3 (19:27→22:10)
[2019-01-09] MEDS: BLOOD SUGAR DIAGNOSTIC STRIP TEST SCH (22:20)
[2019-01-09] MEDS ORDERED: VANCOMYCIN 1 G PREMIX 200 ML IV SCH (22:30)
[2019-01-09] MEDS ORDERED: PIPERACILLIN/TAZ 3.375G PREMIX 50 ML IV ONE (22:30)
[2019-01-09 22:56] LABS: CHLORIDE 96 mEq/L (98-107)
[2019-01-09 23:00] LABS: PARTIAL THROMBOPLASTIN TIME 38.3 sec (23.4-31.0); PROTHROMBIN TIME 10.4 sec (9.6-11.0)
[2019-01-09] MEDS ORDERED: MIDAZOLAM HCL 2 MG/2 ML VIAL IV ONE (23:00)
[2019-01-09 23:02] LABS: ETHANOL BLOOD < 10 mg/dL
[2019-01-09 23:05] LABS: BASOPHILS % 0.8 % (0.0-2.0); HEMOGLOBIN. 12.1 g/dL (12.0-16.0); LYMPHOCYTES % 17.2 % (20.0-50.0); MEAN CORPUSCULAR HEMOGLOBIN 30.6 pg (28.0-32.0); MEAN CORPUSCULAR VOLUME 95.8 fL (81.0-99.0); MONOCYTES % 13.7 % (2.0-8.0); NEUTROPHILS % 65.3 % (40.0-76.0); PLATELET 229 x1000/uL (130-400); RED BLOOD CELL COUNT 3.96 mill/uL (4.2-5.4); RED CELL DISTRIBUTION WIDTH 21.5 % (11.6-14.6)
[2019-01-09 23:06] LABS: CREATINE KINASE 132 IU/L (26-192)
[2019-01-10 17:40] VITALS: BP 111/74
[2019-01-10 18:08] VITALS: BP 98/71
[2019-01-10] MEDS ORDERED: LORAZEPAM 2MG/ML CPJ IV PRN (18:30)
[2019-01-10] MEDS ORDERED: IPRATROPIUM/ALBUTEROL 0.5-3(2.5)MG/3ML NEB HHN PRN (18:30)
[2019-01-10] MEDS ORDERED: MORPHINE SULFATE 4 MG/ML CPJ (NOT FOR IM USE) IV PRN (18:30)
[2019-01-10] MEDS ORDERED: ONDANSETRON HCL 4MG/2ML INJ IV PRN (18:30)
[2019-01-10] MEDS ORDERED: DOCUSATE SODIUM 100MG CAPSULE PO PRN (19:00)
[2019-01-10] MEDS ORDERED: MAGNESIUM/ALUMINUM HYDROXIDE/SIMETHICONE 30ML UDC PO PRN (19:00)
[2019-01-10] MEDS ORDERED: GUAIFENESIN 200MG/10ML SUGAR FREE UDC PO PRN (19:00)
[2019-01-10 20:00] VITALS: BP 114/78
[2019-01-10 22:00] VITALS: BP 100/45
[2019-01-10] MEDS: INSULIN LISPRO 100 UNITS/ML SUBCUT SCH (22:20)
[2019-01-10] MEDS: DEXTROSE 50% WATER 50ML SYRINGE IV PRN (22:30)
[2019-01-11] VITALS (86 sets, daily range): BP systolic 52–190; BP diastolic 35–114
[2019-01-11 07:20] LABS: HEMOGLOBIN. 10.2 g/dL (12.0-16.0); MEAN CORPUSCULAR VOLUME 97.1 fL (81.0-99.0); MEAN PLATELET VOLUME 7.4 fl (7.4-10.4); PLATELET 163 x1000/uL (130-400); RED CELL DISTRIBUTION WIDTH 21.4 % (11.6-14.6)
[2019-01-11] MEDS: BLOOD SUGAR DIAGNOSTIC STRIP TEST SCH ×4 (07:30→21:00)
[2019-01-11 07:32] LABS: CHLORIDE 105 mEq/L (98-107)
[2019-01-11 07:50] LABS: PHOSPHORUS 5.2 mg/dL (2.5-4.9)
[2019-01-11 07:51] LABS: CREATINE KINASE 280 IU/L (26-192); CREATINE KINASE MB FRACTION 14.6 ng/mL (0.5-3.6); LDL CHOLESTEROL 85 mg/dL (5-100)
[2019-01-11 07:52] LABS: HDL CHOLESTEROL 56 mg/dL (40-59)
[2019-01-11] MEDS ORDERED: NALOXONE HCL 1 MG/ML 2ML VIAL IV SCH (08:00)
[2019-01-11] MEDS: INSULIN LISPRO 100 UNITS/ML SUBCUT SCH ×4 (08:00→21:00)
[2019-01-11] MEDS ORDERED: SODIUM CHLORIDE 0.9% 500 ML IV ONE (08:00)
[2019-01-11] MEDS ORDERED: NALOXONE HCL 0.4 MG/ML 1ML VIAL ONE (08:01)
[2019-01-11 08:04] LABS: BG BASE EXCESS -5.3 mmol/L (-2.0-2.0); BG CARBOXYHEMOGLOBIN 2.7 % (0.5-1.5); BG DEOXYHEMOGLOBIN 10.4 % (0.0-5.0); BG HCO3 ACT 24.7 mmol/L (22.0-26.0); BG METHEMOGLOBIN 0.3 % (0.0-1.5); BG OXYGEN SATURATION 89.3 % (92.0-98.5); BG OXYHEMOGLOBIN 86.6 % (94.0-97.0); BG PCO2 74.8 mmHg (35.0-45.0); BG PH 7.136 (7.350-7.450); BG PO2 67.3 mmHg (75.0-100.0); BG SAMPLE SITE LEFT BRACHIAL; BG TOTAL HEMOGLOBIN 10.7 g/dL (12.0-18.0); BG VENT MODE NASAL CANNULA
[2019-01-11] MEDS ORDERED: NOREPINEPHRINE 4MG/250ML PMX 250 ML IV ONE ×2 (08:15→08:30)
[2019-01-11] MEDS ORDERED: NALOXONE HCL 1 MG/ML 2ML VIAL IV PRN (08:15)
[2019-01-11] MEDS ORDERED: NOREPINEPHRINE 4 MG in DEXTROSE 5% WATER 250 ML IV PRN (08:30)
[2019-01-11 09:23] LABS: BG BASE EXCESS -5.5 mmol/L (-2.0-2.0); BG CARBOXYHEMOGLOBIN 1.7 % (0.5-1.5); BG DEOXYHEMOGLOBIN 2.9 % (0.0-5.0); BG HCO3 ACT 23.1 mmol/L (22.0-26.0); BG OXYHEMOGLOBIN 95.4 % (94.0-97.0); BG PCO2 61.9 mmHg (35.0-45.0); BG PO2 103.9 mmHg (75.0-100.0); BG SAMPLE SITE LEFT BRACHIAL; BG TOTAL HEMOGLOBIN 10.5 g/dL (12.0-18.0); BG VENT MODE NASAL CANNULA
[2019-01-11 10:11] LABS: NUCLEATED RED BLOOD CELLS 1 /100 WBC; PLATELET ESTIMATE NORMAL
[2019-01-11] MEDS ORDERED: PIPERACILLIN/TAZ 2.25G PREMIX 50 ML IV SCH (11:00)
[2019-01-11] MEDS ORDERED: NALOXONE HCL 0.4 MG/ML 1ML VIAL IV PRN (11:15)
[2019-01-11] MEDS: DEXTROSE 50% WATER 50ML SYRINGE IV PRN (12:10)
[2019-01-11 12:11] LABS: BG BASE EXCESS -4.9 mmol/L (-2.0-2.0); BG BILEVEL POS AIRWAY PRESSURE 15/5; BG DEOXYHEMOGLOBIN 0.4 % (0.0-5.0); BG FRACTION INSPIRED OXYGEN 40; BG HCO3 ACT 23.1 mmol/L (22.0-26.0); BG METHEMOGLOBIN 0.3 % (0.0-1.5); BG OXYGEN SATURATION 99.6 % (92.0-98.5); BG OXYHEMOGLOBIN 97.3 % (94.0-97.0); BG PCO2 57.1 mmHg (35.0-45.0); BG PH 7.225 (7.350-7.450); BG PO2 182.1 mmHg (75.0-100.0); BG SAMPLE SITE RIGHT RADIAL; BG TOTAL HEMOGLOBIN 10.8 g/dL (12.0-18.0); BG VENT MODE MASK - BIPAP; BG VENT RATE 16 set
[2019-01-11] MEDS ORDERED: DEXTROSE 20% WATER 500 ML IV ONE (12:15)
[2019-01-11] MEDS ORDERED: SODIUM CHLORIDE 23.4% 154 MEQ in DEXT 10% WATER 1,000 ML IV SCH (12:30)
[2019-01-11] MEDS: LACTULOSE 20G/30ML UDC PO SCH ×2 (14:13→22:07)
[2019-01-11] MEDS: FOLIC ACID/VITAMIN B COMP W-C TABLET PO SCH (14:14)
[2019-01-11] MEDS: MIDODRINE HCL 5MG TABLET PO SCH (14:14)
[2019-01-11] MEDS: THIAMINE HCL 100MG TABLET PO SCH (14:14)
[2019-01-11] MEDS: LEVOTHYROXINE SODIUM 175MCG TABLET PO SCH (14:53)
[2019-01-11] MEDS: ENOXAPARIN 30MG/0.3ML SYR SUBCUT SCH ×2 (15:00→17:33)
[2019-01-11 15:14] LABS: T4 FREE 1.15 ng/dL (0.76-1.46)
[2019-01-11] MEDS: PANTOPRAZOLE SODIUM 40 MG/VIAL IV SCH (16:01)
[2019-01-11] MEDS ORDERED: HEPARIN SODIUM 1,000 UNIT/1ML VIAL IV NR (17:15)
[2019-01-11] MEDS ORDERED: HEPARIN SODIUM 1,000 UNIT/1ML VIAL IV ONE (17:15)
[2019-01-11] MEDS: NOREPINEPHRINE 16 MG in DEXT 5% WATER 234 ML IV PRN (17:40)
[2019-01-11] MEDS ORDERED: VANCOMYCIN 750 MG PREMIX 150 ML IV SCH (21:00)
[2019-01-11] MEDS: PIPERACILLIN/TAZ 2.25G PREMIX 50 ML IV SCH (22:08)
[2019-01-12] VITALS (113 sets, daily range): BP systolic 45–239; BP diastolic 18–162
[2019-01-12] MEDS: LACTULOSE 20G/30ML UDC PO SCH ×3 (05:23→22:21)
[2019-01-12] MEDS: PIPERACILLIN/TAZ 2.25G PREMIX 50 ML IV SCH ×3 (05:23→22:21)
[2019-01-12 05:52] LABS: BASOPHILS % 0.7 % (0.0-2.0); EOSINOPHILS % 7.7 % (0.0-5.0); HEMATOCRIT. 36.3 % (36.0-48.0); HEMOGLOBIN. 11.4 g/dL (12.0-16.0); LYMPHOCYTES % 9.3 % (20.0-50.0); MEAN CORPUSCULAR HEMOGLOBIN 30.5 pg (28.0-32.0); MEAN CORPUSCULAR VOLUME 97.3 fL (81.0-99.0); MONOCYTES % 10.3 % (2.0-8.0); PLATELET 159 x1000/uL (130-400); RED BLOOD CELL COUNT 3.73 mill/uL (4.2-5.4); RED CELL DISTRIBUTION WIDTH 21.6 % (11.6-14.6)
[2019-01-12] MEDS: DEXTROSE 50% WATER 50ML SYRINGE IV PRN (05:55)
[2019-01-12 06:30] LABS: PHOSPHORUS 4.8 mg/dL (2.5-4.9)
[2019-01-12] MEDS: INSULIN LISPRO 100 UNITS/ML SUBCUT SCH ×3 (07:29→20:00)
[2019-01-12] MEDS: BLOOD SUGAR DIAGNOSTIC STRIP TEST SCH ×3 (07:29→20:52)
[2019-01-12 08:29] LABS: BG BASE EXCESS -1.5 mmol/L (-2.0-2.0); BG BILEVEL POS AIRWAY PRESSURE 15/5; BG CARBOXYHEMOGLOBIN 1.9 % (0.5-1.5); BG DEOXYHEMOGLOBIN 1.6 % (0.0-5.0); BG FRACTION INSPIRED OXYGEN 40; BG HCO3 ACT 26.9 mmol/L (22.0-26.0); BG METHEMOGLOBIN 0.3 % (0.0-1.5); BG OXYGEN SATURATION 98.4 % (92.0-98.5); BG OXYHEMOGLOBIN 96.2 % (94.0-97.0); BG PH 7.241 (7.350-7.450); BG PO2 114.1 mmHg (75.0-100.0); BG SAMPLE SITE RIGHT RADIAL; BG TOTAL HEMOGLOBIN 11.9 g/dL (12.0-18.0); BG VENT MODE MASK - BIPAP; BG VENT RATE 16 set
[2019-01-12] MEDS ORDERED: SODIUM CHLORIDE 0.9% 10ML VIAL ONE (10:15)
[2019-01-12] MEDS ORDERED: VECURONIUM BROMIDE 10 MG/VIAL IV ONE (10:15)
[2019-01-12] MEDS ORDERED: ETOMIDATE 2MG/ML 10ML VIAL IV ONE (10:15)
[2019-01-12 11:42] LABS: BG BASE EXCESS -1.6 mmol/L (-2.0-2.0); BG CARBOXYHEMOGLOBIN 1.7 % (0.5-1.5); BG DEOXYHEMOGLOBIN 10.1 % (0.0-5.0); BG FRACTION INSPIRED OXYGEN 40; BG HCO3 ACT 22.9 mmol/L (22.0-26.0); BG METHEMOGLOBIN 0.3 % (0.0-1.5); BG OXYGEN SATURATION 89.7 % (92.0-98.5); BG OXYHEMOGLOBIN 87.9 % (94.0-97.0); BG PCO2 37.7 mmHg (35.0-45.0); BG PH 7.401 (7.350-7.450); BG PO2 53.6 mmHg (75.0-100.0); BG SAMPLE SITE RIGHT RADIAL; BG TIDAL VOLUME(mL) 500 mL; BG TOTAL HEMOGLOBIN 11.7 g/dL (12.0-18.0); BG VENT MODE VENT - A/C; BG VENT RATE 14 set
[2019-01-12] MEDS: PANTOPRAZOLE SODIUM 40 MG/VIAL IV SCH (11:49)
[2019-01-12] MEDS: LEVOTHYROXINE SODIUM 175MCG TABLET PO SCH (11:49)
[2019-01-12] MEDS: MIDODRINE HCL 5MG TABLET PO SCH (11:51)
[2019-01-12] MEDS: FOLIC ACID/VITAMIN B COMP W-C TABLET PO SCH (11:51)
[2019-01-12] MEDS: THIAMINE HCL 100MG TABLET PO SCH (11:52)
[2019-01-12] MEDS ORDERED: NON FORMULARY PATIENT HOME MED XX SCH (12:30)
[2019-01-12] MEDS: ENOXAPARIN 30MG/0.3ML SYR SUBCUT SCH (20:07)
[2019-01-12] MEDS: IPRATROPIUM/ALBUTEROL 0.5-3(2.5)MG/3ML NEB HHN SCH (20:52)
[2019-01-12] MEDS: ACETAMINOPHEN 325MG TABLET PO PRN (20:53)
[2019-01-12] MEDS: SODIUM CHLORIDE 23.4% 154 MEQ in DEXT 10% WATER 1,000 ML IV SCH (22:22)
[2019-01-13] VITALS (93 sets, daily range): BP systolic 53–164; BP diastolic 18–91
[2019-01-13] MEDS: IPRATROPIUM/ALBUTEROL 0.5-3(2.5)MG/3ML NEB HHN SCH ×6 (00:21→21:19)
[2019-01-13] MEDS: BLOOD SUGAR DIAGNOSTIC STRIP TEST SCH ×6 (00:33→20:37)
[2019-01-13] MEDS: NOREPINEPHRINE 16 MG in DEXT 5% WATER 234 ML IV PRN ×3 (02:28→19:33)
[2019-01-13] MEDS: MIDAZOLAM HCL 50 MG in DEXTROSE 5% WATER 40 ML IV PRN ×2 (02:30→05:57)
[2019-01-13] MEDS: FENTANYL CITRATE/PF 500 MCG in SODIUM CHLORIDE 0.9% 40 ML IV PRN ×3 (02:35→21:11)
[2019-01-13] MEDS: INSULIN LISPRO 100 UNITS/ML SUBCUT SCH ×6 (04:00→20:00)
[2019-01-13 06:08] LABS: BASOPHILS % 0.4 % (0.0-2.0); EOSINOPHILS % 11.5 % (0.0-5.0); HEMOGLOBIN. 12.1 g/dL (12.0-16.0); LYMPHOCYTES % 9.5 % (20.0-50.0); MEAN CORPUSCULAR HEMOGLOBIN 29.6 pg (28.0-32.0); MEAN CORPUSCULAR VOLUME 95.3 fL (81.0-99.0); MEAN PLATELET VOLUME 7.9 fl (7.4-10.4); MONOCYTES % 9.4 % (2.0-8.0); NEUTROPHILS % 69.2 % (40.0-76.0); PLATELET 127 x1000/uL (130-400); RED BLOOD CELL COUNT 4.09 mill/uL (4.2-5.4); RED CELL DISTRIBUTION WIDTH 21.6 % (11.6-14.6)
[2019-01-13] MEDS: LACTULOSE 20G/30ML UDC PO SCH ×3 (06:11→21:08)
[2019-01-13] MEDS: PIPERACILLIN/TAZ 2.25G PREMIX 50 ML IV SCH ×3 (06:11→21:09)
[2019-01-13 07:26] LABS: BG BASE EXCESS -4.5 mmol/L (-2.0-2.0); BG CARBOXYHEMOGLOBIN 1.5 % (0.5-1.5); BG DEOXYHEMOGLOBIN 0.2 % (0.0-5.0); BG HCO3 ACT 19.9 mmol/L (22.0-26.0); BG METHEMOGLOBIN 0.3 % (0.0-1.5); BG OXYGEN SATURATION 99.8 % (92.0-98.5); BG PCO2 34.5 mmHg (35.0-45.0); BG PH 7.379 (7.350-7.450); BG PO2 197.8 mmHg (75.0-100.0); BG SAMPLE SITE LEFT BRACHIAL; BG TIDAL VOLUME(mL) 500 mL; BG TOTAL HEMOGLOBIN 12.9 g/dL (12.0-18.0); BG VENT MODE VENT - A/C; BG VENT RATE 14 set
[2019-01-13] MEDS: MIDODRINE HCL 5MG TABLET PO SCH (08:14)
[2019-01-13] MEDS: THIAMINE HCL 100MG TABLET PO SCH (08:14)
[2019-01-13] MEDS: LEVOTHYROXINE SODIUM 175MCG TABLET PO SCH (08:14)
[2019-01-13] MEDS: FOLIC ACID/VITAMIN B COMP W-C TABLET PO SCH (08:15)
[2019-01-13] MEDS: PANTOPRAZOLE SODIUM 40 MG/VIAL IV SCH (08:15)
[2019-01-13] MEDS: DEXTROSE 50% WATER 50ML SYRINGE IV PRN (08:27)
[2019-01-13] MEDS ORDERED: LORAZEPAM 2MG/ML CPJ IV PRN (10:45)
[2019-01-13] MEDS ORDERED: PHENYLEPHRINE 40 MG in DEXT 5% WATER 246 ML IV PRN (11:00)
[2019-01-13] MEDS: ENOXAPARIN 30MG/0.3ML SYR SUBCUT SCH (14:20)
[2019-01-13] MEDS: ALBUMIN HUMAN 12.5GM/50ML (25%) IV SCH ×2 (14:28→21:40)
[2019-01-14] VITALS (90 sets, daily range): BP systolic 72–155; BP diastolic 30–110
[2019-01-14] MEDS: ACETAMINOPHEN 325MG TABLET PO PRN (00:14)
[2019-01-14] MEDS: IPRATROPIUM/ALBUTEROL 0.5-3(2.5)MG/3ML NEB HHN SCH ×6 (00:37→21:33)
[2019-01-14] MEDS: BLOOD SUGAR DIAGNOSTIC STRIP TEST SCH ×7 (04:00→23:55)
[2019-01-14] MEDS: INSULIN LISPRO 100 UNITS/ML SUBCUT SCH ×7 (04:00→23:55)
[2019-01-14] MEDS: SODIUM CHLORIDE 23.4% 154 MEQ in DEXT 10% WATER 1,000 ML IV SCH (05:45)
[2019-01-14] MEDS: LACTULOSE 20G/30ML UDC PO SCH ×3 (05:46→22:07)
[2019-01-14] MEDS: PIPERACILLIN/TAZ 2.25G PREMIX 50 ML IV SCH ×4 (05:46→22:07)
[2019-01-14] MEDS: NOREPINEPHRINE 16 MG in DEXT 5% WATER 234 ML IV PRN (05:47)
[2019-01-14 05:57] LABS: BASOPHILS % 0.3 % (0.0-2.0); EOSINOPHILS % 11.5 % (0.0-5.0); HEMATOCRIT. 36.7 % (36.0-48.0); HEMOGLOBIN. 11.6 g/dL (12.0-16.0); LYMPHOCYTES % 9.6 % (20.0-50.0); MEAN CORPUSCULAR HEMOGLOBIN 29.9 pg (28.0-32.0); MEAN CORPUSCULAR VOLUME 94.4 fL (81.0-99.0); MEAN PLATELET VOLUME 8.4 fl (7.4-10.4); MONOCYTES % 11.1 % (2.0-8.0); NEUTROPHILS % 67.5 % (40.0-76.0); PLATELET 125 x1000/uL (130-400); RED BLOOD CELL COUNT 3.88 mill/uL (4.2-5.4); RED CELL DISTRIBUTION WIDTH 21.9 % (11.6-14.6)
[2019-01-14] MEDS: FENTANYL CITRATE/PF 500 MCG in SODIUM CHLORIDE 0.9% 40 ML IV PRN ×2 (06:13→17:38)
[2019-01-14] MEDS: FOLIC ACID/VITAMIN B COMP W-C TABLET PO SCH (08:28)
[2019-01-14] MEDS: PANTOPRAZOLE SODIUM 40 MG/VIAL IV SCH (08:28)
[2019-01-14] MEDS: LEVOTHYROXINE SODIUM 175MCG TABLET PO SCH (08:28)
[2019-01-14] MEDS: THIAMINE HCL 100MG TABLET PO SCH (08:29)
[2019-01-14] MEDS: MIDODRINE HCL 5MG TABLET PO SCH (08:29)
[2019-01-14] MEDS ORDERED: PHENYLEPHRINE 80 MG in DEXT 5% WATER 500 ML IV PRN (09:30)
[2019-01-14 10:38] LABS: BG BASE EXCESS -3.8 mmol/L (-2.0-2.0); BG CARBOXYHEMOGLOBIN 1.3 % (0.5-1.5); BG DEOXYHEMOGLOBIN 1.9 % (0.0-5.0); BG FRACTION INSPIRED OXYGEN 40; BG HCO3 ACT 20.8 mmol/L (22.0-26.0); BG METHEMOGLOBIN 0.3 % (0.0-1.5); BG OXYGEN SATURATION 98.1 % (92.0-98.5); BG OXYHEMOGLOBIN 96.5 % (94.0-97.0); BG PCO2 36.7 mmHg (35.0-45.0); BG PH 7.372 (7.350-7.450); BG PO2 105.8 mmHg (75.0-100.0); BG SAMPLE SITE LEFT RADIAL; BG TIDAL VOLUME(mL) 500 mL; BG VENT MODE VENT - A/C; BG VENT RATE 14 set
[2019-01-14] MEDS: NOREPINEPHRINE 32 MG in DEXT 5% WATER 468 ML IV PRN (13:17)
[2019-01-14] MEDS ORDERED: VANCOMYCIN 750 MG PREMIX 150 ML IV NR (14:00)
[2019-01-14] MEDS: ENOXAPARIN 30MG/0.3ML SYR SUBCUT SCH (14:31)
[2019-01-14] MEDS: METOCLOPRAMIDE HCL 10MG/2ML VIAL IV SCH ×2 (17:02→23:55)
[2019-01-15] VITALS (94 sets, daily range): BP systolic 76–156; BP diastolic 39–135
[2019-01-15] MEDS: FENTANYL CITRATE/PF 500 MCG in SODIUM CHLORIDE 0.9% 40 ML IV PRN (01:16)
[2019-01-15] MEDS: IPRATROPIUM/ALBUTEROL 0.5-3(2.5)MG/3ML NEB HHN SCH ×6 (01:26→20:22)
[2019-01-15] MEDS: BLOOD SUGAR DIAGNOSTIC STRIP TEST SCH ×5 (04:00→19:58)
[2019-01-15] MEDS: INSULIN LISPRO 100 UNITS/ML SUBCUT SCH ×5 (05:56→19:58)
[2019-01-15] MEDS: METOCLOPRAMIDE HCL 10MG/2ML VIAL IV SCH ×3 (06:03→17:33)
[2019-01-15] MEDS: LACTULOSE 20G/30ML UDC PO SCH ×3 (06:03→22:22)
[2019-01-15] MEDS: PIPERACILLIN/TAZ 2.25G PREMIX 50 ML IV SCH ×3 (06:04→22:23)
[2019-01-15 06:06] LABS: BASOPHILS % 0.1 % (0.0-2.0); EOSINOPHILS % 9.5 % (0.0-5.0); HEMATOCRIT. 37.1 % (36.0-48.0); HEMOGLOBIN. 11.4 g/dL (12.0-16.0); LYMPHOCYTES % 9.2 % (20.0-50.0); MEAN CORPUSCULAR HEMOGLOBIN 29.3 pg (28.0-32.0); MEAN CORPUSCULAR VOLUME 95.5 fL (81.0-99.0); MEAN PLATELET VOLUME 8.4 fl (7.4-10.4); MONOCYTES % 11.9 % (2.0-8.0); NEUTROPHILS % 69.3 % (40.0-76.0); PLATELET 110 x1000/uL (130-400); RED BLOOD CELL COUNT 3.88 mill/uL (4.2-5.4); RED CELL DISTRIBUTION WIDTH 21.4 % (11.6-14.6)
[2019-01-15] MEDS: THIAMINE HCL 100MG TABLET PO SCH (08:19)
[2019-01-15] MEDS: MIDODRINE HCL 5MG TABLET PO SCH (08:19)
[2019-01-15] MEDS: LEVOTHYROXINE SODIUM 175MCG TABLET PO SCH (08:19)
[2019-01-15] MEDS: PANTOPRAZOLE SODIUM 40 MG/VIAL IV SCH (08:19)
[2019-01-15] MEDS: FOLIC ACID/VITAMIN B COMP W-C TABLET PO SCH (08:19)
[2019-01-15 08:44] LABS: BG BASE EXCESS -5.3 mmol/L (-2.0-2.0); BG CARBOXYHEMOGLOBIN 1.2 % (0.5-1.5); BG DEOXYHEMOGLOBIN 2.7 % (0.0-5.0); BG FRACTION INSPIRED OXYGEN 30; BG HCO3 ACT 20.1 mmol/L (22.0-26.0); BG METHEMOGLOBIN 0.3 % (0.0-1.5); BG OXYGEN SATURATION 97.3 % (92.0-98.5); BG OXYHEMOGLOBIN 95.8 % (94.0-97.0); BG PH 7.331 (7.350-7.450); BG PO2 99.5 mmHg (75.0-100.0); BG SAMPLE SITE LEFT RADIAL; BG TIDAL VOLUME(mL) 500 mL; BG TOTAL HEMOGLOBIN 11.7 g/dL (12.0-18.0); BG VENT MODE VENT - A/C; BG VENT RATE 14 set
[2019-01-15] MEDS: DEXTROSE 10% IV SCH (14:00)
[2019-01-15] MEDS: SODIUM CHLORIDE IV SCH (14:00)
[2019-01-15] MEDS: WATER IV SCH (14:00)
[2019-01-15] MEDS: ENOXAPARIN 30MG/0.3ML SYR SUBCUT SCH (14:20)
[2019-01-15] MEDS: NOREPINEPHRINE 32 MG in DEXT 5% WATER 468 ML IV PRN (14:55)
[2019-01-16] VITALS (94 sets, daily range): BP systolic 40–204; BP diastolic 19–130
[2019-01-16] MEDS: BLOOD SUGAR DIAGNOSTIC STRIP TEST SCH ×5 (00:09→20:00)
[2019-01-16] MEDS: IPRATROPIUM/ALBUTEROL 0.5-3(2.5)MG/3ML NEB HHN SCH ×5 (00:19→20:35)
[2019-01-16] MEDS: METOCLOPRAMIDE HCL 10MG/2ML VIAL IV SCH ×3 (00:20→12:55)
[2019-01-16] MEDS: METRONIDAZOLE 500 MG PREMIX 100 ML IV SCH ×2 (00:35→08:51)
[2019-01-16] MEDS: VANCOMYCIN HCL 1 GM/VIAL PO SCH ×2 (00:36→06:03)
[2019-01-16] MEDS: INSULIN LISPRO 100 UNITS/ML SUBCUT SCH ×5 (05:28→20:00)
[2019-01-16] MEDS: PIPERACILLIN/TAZ 2.25G PREMIX 50 ML IV SCH ×3 (06:03→22:21)
[2019-01-16] MEDS: LACTULOSE 20G/30ML UDC PO SCH ×3 (06:03→22:21)
[2019-01-16 06:42] LABS: BASOPHILS % 0.5 % (0.0-2.0); EOSINOPHILS % 11.8 % (0.0-5.0); HEMATOCRIT. 32.9 % (36.0-48.0); HEMOGLOBIN. 10.1 g/dL (12.0-16.0); LYMPHOCYTES % 9.7 % (20.0-50.0); MEAN CORPUSCULAR HEMOGLOBIN 29.2 pg (28.0-32.0); MEAN CORPUSCULAR VOLUME 94.6 fL (81.0-99.0); MEAN PLATELET VOLUME 8.9 fl (7.4-10.4); MONOCYTES % 10.7 % (2.0-8.0); NEUTROPHILS % 67.3 % (40.0-76.0); PLATELET 116 x1000/uL (130-400); RED BLOOD CELL COUNT 3.48 mill/uL (4.2-5.4); RED CELL DISTRIBUTION WIDTH 21.9 % (11.6-14.6)
[2019-01-16] MEDS: WATER IV SCH (07:21)
[2019-01-16] MEDS: DEXTROSE 10% IV SCH (07:21)
[2019-01-16] MEDS: SODIUM CHLORIDE IV SCH (07:21)
[2019-01-16] MEDS: LEVOTHYROXINE SODIUM 175MCG TABLET PO SCH (07:50)
[2019-01-16 07:51] LABS: BG BASE EXCESS -5.6 mmol/L (-2.0-2.0); BG CARBOXYHEMOGLOBIN 0.5 % (0.5-1.5); BG DEOXYHEMOGLOBIN 3.1 % (0.0-5.0); BG FRACTION INSPIRED OXYGEN 30; BG HCO3 ACT 19.2 mmol/L (22.0-26.0); BG OXYGEN SATURATION 96.9 % (92.0-98.5); BG OXYHEMOGLOBIN 96.4 % (94.0-97.0); BG PH 7.357 (7.350-7.450); BG PRESSURE SUPPORT 10; BG SAMPLE SITE LEFT RADIAL; BG TIDAL VOLUME(mL) 500 mL; BG TOTAL HEMOGLOBIN 10.6 g/dL (12.0-18.0); BG VENT MODE VENT - SIMV; BG VENT RATE 10 set
[2019-01-16] MEDS: MIDODRINE HCL 5MG TABLET PO SCH (08:51)
[2019-01-16] MEDS: FOLIC ACID/VITAMIN B COMP W-C TABLET PO SCH (08:51)
[2019-01-16] MEDS: PANTOPRAZOLE SODIUM 40 MG/VIAL IV SCH (08:51)
[2019-01-16] MEDS: THIAMINE HCL 100MG TABLET PO SCH (08:51)
[2019-01-16 11:34] LABS: BG BASE EXCESS -5.3 mmol/L (-2.0-2.0); BG CARBOXYHEMOGLOBIN 0.7 % (0.5-1.5); BG DEOXYHEMOGLOBIN 3.7 % (0.0-5.0); BG FRACTION INSPIRED OXYGEN 30; BG HCO3 ACT 20.1 mmol/L (22.0-26.0); BG METHEMOGLOBIN 0.3 % (0.0-1.5); BG OXYGEN SATURATION 96.3 % (92.0-98.5); BG OXYHEMOGLOBIN 95.3 % (94.0-97.0); BG PCO2 38.7 mmHg (35.0-45.0); BG PH 7.334 (7.350-7.450); BG PO2 88.8 mmHg (75.0-100.0); BG PRESSURE SUPPORT 8; BG SAMPLE SITE LEFT RADIAL; BG TOTAL HEMOGLOBIN 11.2 g/dL (12.0-18.0); BG VENT MODE VENT - CPAP
[2019-01-16] MEDS: VANCOMYCIN HCL 1000 MG/20 ML ORAL PO SCH ×2 (14:00→20:32)
[2019-01-17] VITALS (102 sets, daily range): BP systolic 51–181; BP diastolic 23–117
[2019-01-17] MEDS: DEXTROSE 10% IV SCH (00:42)
[2019-01-17] MEDS: WATER IV SCH (00:42)
[2019-01-17] MEDS: SODIUM CHLORIDE IV SCH (00:42)
[2019-01-17] MEDS: BLOOD SUGAR DIAGNOSTIC STRIP TEST SCH ×6 (00:45→19:58)
[2019-01-17] MEDS: IPRATROPIUM/ALBUTEROL 0.5-3(2.5)MG/3ML NEB HHN SCH ×5 (00:58→20:29)
[2019-01-17] MEDS: VANCOMYCIN HCL 1000 MG/20 ML ORAL PO SCH ×4 (02:07→19:58)
[2019-01-17] MEDS: METRONIDAZOLE 500 MG PREMIX 100 ML IV SCH ×4 (02:11→23:13)
[2019-01-17] MEDS: METOCLOPRAMIDE HCL 10MG/2ML VIAL IV SCH ×5 (02:11→23:13)
[2019-01-17] MEDS: INSULIN LISPRO 100 UNITS/ML SUBCUT SCH ×6 (04:00→20:00)
[2019-01-17] MEDS: LACTULOSE 20G/30ML UDC PO SCH (05:38)
[2019-01-17] MEDS: PIPERACILLIN/TAZ 2.25G PREMIX 50 ML IV SCH ×3 (05:38→21:11)
[2019-01-17 06:56] LABS: BASOPHILS % 0.2 % (0.0-2.0); EOSINOPHILS % 6.9 % (0.0-5.0); HEMOGLOBIN. 10.9 g/dL (12.0-16.0); LYMPHOCYTES % 9.2 % (20.0-50.0); MEAN CORPUSCULAR HEMOGLOBIN 29.6 pg (28.0-32.0); MEAN CORPUSCULAR VOLUME 94.8 fL (81.0-99.0); MEAN PLATELET VOLUME 9.2 fl (7.4-10.4); MONOCYTES % 11.2 % (2.0-8.0); NEUTROPHILS % 72.5 % (40.0-76.0); PLATELET 175 x1000/uL (130-400); RED BLOOD CELL COUNT 3.69 mill/uL (4.2-5.4); RED CELL DISTRIBUTION WIDTH 21.7 % (11.6-14.6)
[2019-01-17] MEDS: PANTOPRAZOLE SODIUM 40 MG/VIAL IV SCH (09:21)
[2019-01-17] MEDS: MIDODRINE HCL 5MG TABLET PO SCH ×3 (09:22→17:32)
[2019-01-17] MEDS: FOLIC ACID/VITAMIN B COMP W-C TABLET PO SCH (09:22)
[2019-01-17] MEDS: THIAMINE HCL 100MG TABLET PO SCH (09:22)
[2019-01-17] MEDS: LEVOTHYROXINE SODIUM 175MCG TABLET PO SCH (09:22)
[2019-01-17 09:24] LABS: BG BASE EXCESS -4.5 mmol/L (-2.0-2.0); BG CARBOXYHEMOGLOBIN 0.9 % (0.5-1.5); BG DEOXYHEMOGLOBIN 0.4 % (0.0-5.0); BG FRACTION INSPIRED OXYGEN 30; BG HCO3 ACT 20.4 mmol/L (22.0-26.0); BG OXYGEN SATURATION 99.6 % (92.0-98.5); BG OXYHEMOGLOBIN 98.7 % (94.0-97.0); BG PCO2 36.9 mmHg (35.0-45.0); BG PO2 213.1 mmHg (75.0-100.0); BG PRESSURE SUPPORT 8; BG SAMPLE SITE RIGHT RADIAL; BG TOTAL HEMOGLOBIN 10.7 g/dL (12.0-18.0); BG VENT MODE VENT - CPAP
[2019-01-17] MEDS ORDERED: RACEPINEPHRINE 2.25% 0.5ML NEB VIAL HHN NR (12:15)
[2019-01-17] MEDS: NOREPINEPHRINE 32 MG in DEXT 5% WATER 468 ML IV PRN (14:41)
[2019-01-17 14:55] LABS: BG BASE EXCESS -6.5 mmol/L (-2.0-2.0); BG CARBOXYHEMOGLOBIN 0.7 % (0.5-1.5); BG FRACTION INSPIRED OXYGEN 35; BG HCO3 ACT 18.6 mmol/L (22.0-26.0); BG METHEMOGLOBIN 0.3 % (0.0-1.5); BG PCO2 35.5 mmHg (35.0-45.0); BG PH 7.337 (7.350-7.450); BG PO2 109.2 mmHg (75.0-100.0); BG SAMPLE SITE RIGHT RADIAL; BG TOTAL HEMOGLOBIN 10.9 g/dL (12.0-18.0); BG VENT MODE MASK - AEROSOL
[2019-01-17] MEDS: ENOXAPARIN 30MG/0.3ML SYR SUBCUT SCH (15:40)
[2019-01-18] VITALS (78 sets, daily range): BP systolic 81–164; BP diastolic 24–91
[2019-01-18] MEDS: IPRATROPIUM/ALBUTEROL 0.5-3(2.5)MG/3ML NEB HHN SCH ×6 (00:42→20:11)
[2019-01-18] MEDS: VANCOMYCIN HCL 1000 MG/20 ML ORAL PO SCH ×4 (01:28→20:09)
[2019-01-18] MEDS: BLOOD SUGAR DIAGNOSTIC STRIP TEST SCH ×6 (03:58→20:19)
[2019-01-18] MEDS: INSULIN LISPRO 100 UNITS/ML SUBCUT SCH ×6 (03:58→20:00)
[2019-01-18] MEDS: PIPERACILLIN/TAZ 2.25G PREMIX 50 ML IV SCH ×3 (05:05→21:22)
[2019-01-18] MEDS: METOCLOPRAMIDE HCL 10MG/2ML VIAL IV SCH ×3 (05:05→17:08)
[2019-01-18] MEDS: ACETAMINOPHEN 325MG TABLET PO PRN ×2 (06:57→20:19)
[2019-01-18] MEDS: PANTOPRAZOLE SODIUM 40 MG/VIAL IV SCH (08:50)
[2019-01-18] MEDS: THIAMINE HCL 100MG TABLET PO SCH (08:51)
[2019-01-18] MEDS: FOLIC ACID/VITAMIN B COMP W-C TABLET PO SCH (08:51)
[2019-01-18] MEDS: METRONIDAZOLE 500 MG PREMIX 100 ML IV SCH ×2 (08:51→17:09)
[2019-01-18] MEDS: MIDODRINE HCL 5MG TABLET PO SCH ×3 (09:12→17:09)
[2019-01-18 09:23] LABS: BG BASE EXCESS -8.7 mmol/L (-2.0-2.0); BG CARBOXYHEMOGLOBIN 0.2 % (0.5-1.5); BG DEOXYHEMOGLOBIN 2.4 % (0.0-5.0); BG FRACTION INSPIRED OXYGEN 30; BG HCO3 ACT 17.5 mmol/L (22.0-26.0); BG METHEMOGLOBIN 0.8 % (0.0-1.5); BG OXYGEN SATURATION 97.6 % (92.0-98.5); BG OXYHEMOGLOBIN 96.6 % (94.0-97.0); BG PCO2 38.4 mmHg (35.0-45.0); BG PH 7.276 (7.350-7.450); BG PO2 119.6 mmHg (75.0-100.0); BG SAMPLE SITE RIGHT RADIAL; BG TOTAL HEMOGLOBIN 10.7 g/dL (12.0-18.0); BG VENT MODE MASK - BIPAP; BG VENT RATE 14 set
[2019-01-18] MEDS: LEVOTHYROXINE SODIUM 175MCG TABLET PO SCH (09:31)
[2019-01-18] MEDS: DIPHENHYDRAMINE 50MG/ML VIAL IV PRN (12:39)
[2019-01-18 13:10] LABS: HEMOGLOBIN. 9.7 g/dL (12.0-16.0); MEAN CORPUSCULAR HEMOGLOBIN 29.5 pg (28.0-32.0); MEAN CORPUSCULAR VOLUME 94.4 fL (81.0-99.0); MEAN PLATELET VOLUME 8.8 fl (7.4-10.4); PLATELET 219 x1000/uL (130-400); RED BLOOD CELL COUNT 3.29 mill/uL (4.2-5.4); RED CELL DISTRIBUTION WIDTH 21.2 % (11.6-14.6)
[2019-01-18] MEDS ORDERED: HEPARIN SODIUM 1,000 UNIT/1ML VIAL IV NR (13:45)
[2019-01-18 14:24] LABS: PLATELET ESTIMATE NORMAL
[2019-01-18] MEDS: ENOXAPARIN 30MG/0.3ML SYR SUBCUT SCH (14:54)
[2019-01-18] MEDS: DEXTROSE 50% WATER 50ML SYRINGE IV PRN (21:28)
[2019-01-19] VITALS (19 sets, daily range): BP systolic 64–116; BP diastolic 23–87
[2019-01-19] MEDS: BLOOD SUGAR DIAGNOSTIC STRIP TEST SCH ×6 (00:06→20:41)
[2019-01-19] MEDS: METOCLOPRAMIDE HCL 10MG/2ML VIAL IV SCH ×4 (00:06→18:05)
[2019-01-19] MEDS: IPRATROPIUM/ALBUTEROL 0.5-3(2.5)MG/3ML NEB HHN SCH ×6 (00:06→20:35)
[2019-01-19] MEDS: METRONIDAZOLE 500 MG PREMIX 100 ML IV SCH ×2 (00:06→08:55)
[2019-01-19] MEDS: DEXTROSE 50% WATER 50ML SYRINGE IV PRN ×3 (00:18→20:42)
[2019-01-19] MEDS: DIPHENHYDRAMINE 50MG/ML VIAL IV PRN ×3 (00:37→22:52)
[2019-01-19] MEDS: VANCOMYCIN HCL 1000 MG/20 ML ORAL PO SCH ×4 (02:03→20:41)
[2019-01-19] MEDS: INSULIN LISPRO 100 UNITS/ML SUBCUT SCH ×6 (04:00→20:00)
[2019-01-19 06:54] LABS: HEMATOCRIT. 28.4 % (36.0-48.0); HEMOGLOBIN. 8.9 g/dL (12.0-16.0); MEAN CORPUSCULAR HEMOGLOBIN 29.5 pg (28.0-32.0); MEAN CORPUSCULAR VOLUME 94.1 fL (81.0-99.0); MEAN PLATELET VOLUME 8.9 fl (7.4-10.4); PLATELET 197 x1000/uL (130-400); RED BLOOD CELL COUNT 3.02 mill/uL (4.2-5.4); RED CELL DISTRIBUTION WIDTH 21.2 % (11.6-14.6)
[2019-01-19] MEDS: PANTOPRAZOLE SODIUM 40 MG/VIAL IV SCH (08:55)
[2019-01-19] MEDS: LEVOTHYROXINE SODIUM 175MCG TABLET PO SCH (08:55)
[2019-01-19] MEDS: THIAMINE HCL 100MG TABLET PO SCH (08:55)
[2019-01-19] MEDS: MIDODRINE HCL 5MG TABLET PO SCH ×3 (08:56→18:04)
[2019-01-19] MEDS: FOLIC ACID/VITAMIN B COMP W-C TABLET PO SCH (08:56)
[2019-01-19 09:38] LABS: PLATELET ESTIMATE NORMAL
[2019-01-19] MEDS: ENOXAPARIN 30MG/0.3ML SYR SUBCUT SCH (15:39)
[2019-01-19] MEDS: METRONIDAZOLE 500MG TABLET PO SCH (15:39)
[2019-01-19] MEDS: ACETAMINOPHEN 325MG TABLET PO PRN ×2 (15:40→22:51)
[2019-01-20] VITALS (12 sets, daily range): BP systolic 55–152; BP diastolic 22–72
[2019-01-20] MEDS: IPRATROPIUM/ALBUTEROL 0.5-3(2.5)MG/3ML NEB HHN SCH ×6 (00:23→21:14)
[2019-01-20] MEDS: METOCLOPRAMIDE HCL 10MG/2ML VIAL IV SCH ×5 (01:24→23:56)
[2019-01-20] MEDS: METRONIDAZOLE 500MG TABLET PO SCH ×4 (01:24→23:56)
[2019-01-20] MEDS: DEXTROSE 50% WATER 50ML SYRINGE IV PRN ×2 (01:37→04:30)
[2019-01-20] MEDS: VANCOMYCIN HCL 1000 MG/20 ML ORAL PO SCH ×4 (03:04→21:10)
[2019-01-20] MEDS: DIPHENHYDRAMINE 50MG/ML VIAL IV PRN ×4 (03:05→21:08)
[2019-01-20] MEDS: INSULIN LISPRO 100 UNITS/ML SUBCUT SCH ×7 (04:00→23:53)
[2019-01-20] MEDS: BLOOD SUGAR DIAGNOSTIC STRIP TEST SCH ×7 (04:27→23:53)
[2019-01-20] MEDS: LEVOTHYROXINE SODIUM 175MCG TABLET PO SCH (06:34)
[2019-01-20 06:53] LABS: HEMATOCRIT. 30.3 % (36.0-48.0); HEMOGLOBIN. 9.5 g/dL (12.0-16.0); MEAN CORPUSCULAR HEMOGLOBIN 29.1 pg (28.0-32.0); MEAN CORPUSCULAR VOLUME 92.3 fL (81.0-99.0); MEAN PLATELET VOLUME 8.5 fl (7.4-10.4); PLATELET 239 x1000/uL (130-400); RED BLOOD CELL COUNT 3.29 mill/uL (4.2-5.4)
[2019-01-20] MEDS ORDERED: DEXTROSE 10% WATER 500 ML IV SCH (08:00)
[2019-01-20] MEDS: DEXTROSE 10% WATER 1,000 ML IV SCH (08:21)
[2019-01-20] MEDS: THIAMINE HCL 100MG TABLET PO SCH (08:34)
[2019-01-20] MEDS: ACETAMINOPHEN 325MG TABLET PO PRN ×2 (08:35→21:08)
[2019-01-20] MEDS: MIDODRINE HCL 5MG TABLET PO SCH ×3 (08:35→16:13)
[2019-01-20] MEDS: PANTOPRAZOLE SODIUM 40 MG/VIAL IV SCH (08:37)
[2019-01-20] MEDS: FOLIC ACID/VITAMIN B COMP W-C TABLET PO SCH (08:37)
[2019-01-20 16:08] LABS: PLATELET ESTIMATE NORMAL
[2019-01-20] MEDS: ENOXAPARIN 30MG/0.3ML SYR SUBCUT SCH (16:13)
[2019-01-20] MEDS: ZOLPIDEM TARTRATE 5MG TABLET PO PRN ×2 (19:01→22:38)
[2019-01-21] VITALS (8 sets, daily range): BP systolic 96–144; BP diastolic 43–80
[2019-01-21] MEDS: IPRATROPIUM/ALBUTEROL 0.5-3(2.5)MG/3ML NEB HHN SCH ×3 (00:53→10:04)
[2019-01-21] MEDS: VANCOMYCIN HCL 1000 MG/20 ML ORAL PO SCH ×2 (02:35→08:30)
[2019-01-21] MEDS: INSULIN LISPRO 100 UNITS/ML SUBCUT SCH ×3 (04:00→11:59)
[2019-01-21] MEDS: BLOOD SUGAR DIAGNOSTIC STRIP TEST SCH ×3 (04:41→11:59)
[2019-01-21] MEDS: METOCLOPRAMIDE HCL 10MG/2ML VIAL IV SCH ×2 (05:57→12:00)
[2019-01-21] MEDS: LEVOTHYROXINE SODIUM 175MCG TABLET PO SCH (05:58)
[2019-01-21 06:28] LABS: BASOPHILS % 1.1 % (0.0-2.0); EOSINOPHILS % 12.4 % (0.0-5.0); HEMATOCRIT. 28.7 % (36.0-48.0); HEMOGLOBIN. 9.1 g/dL (12.0-16.0); LYMPHOCYTES % 18.6 % (20.0-50.0); MEAN CORPUSCULAR HEMOGLOBIN 29.5 pg (28.0-32.0); MEAN PLATELET VOLUME 8.4 fl (7.4-10.4); NEUTROPHILS % 53.9 % (40.0-76.0); PLATELET 243 x1000/uL (130-400); RED BLOOD CELL COUNT 3.09 mill/uL (4.2-5.4)
[2019-01-21] MEDS: PANTOPRAZOLE SODIUM 40 MG/VIAL IV SCH (08:26)
[2019-01-21] MEDS: DEXTROSE 10% WATER 1,000 ML IV SCH (08:26)
[2019-01-21] MEDS: METRONIDAZOLE 500MG TABLET PO SCH (08:26)
[2019-01-21] MEDS: THIAMINE HCL 100MG TABLET PO SCH (08:27)
[2019-01-21] MEDS: MIDODRINE HCL 5MG TABLET PO SCH (08:27)
[2019-01-21] MEDS: FOLIC ACID/VITAMIN B COMP W-C TABLET PO SCH (08:27)
[2019-01-21] MEDS: DIPHENHYDRAMINE 50MG/ML VIAL IV PRN (08:28)
[2019-01-21] MEDS: ACETAMINOPHEN 325MG TABLET PO PRN (08:28)
== END 2019-01-21 14:50 | DRG 870 ==
LOC: ER 18:31 → EDBEDREQ 21:19 → EDBEDREQTM 21:19 → 5EST 21:55 → EDBEDREQ 21:57 → EDBEDREQSVC 21:57 → EDBEDREQTM 21:57 → CANRESERV 22:06 → ENRESERV 22:06 → EDBEDREQSVC 22:14 → EDBEDREQTM 22:14 → EDBEDREQSVC 01-10 06:34 → ENRESERV 01-10 14:58 → CVICU 01-11 08:20 → 3WST 01-19 12:48
PROVIDERS: ADMIT Internal Medicine; ATTEND Internal Medicine
PROC: 03JYXZZ Inspection of Upper Artery, External Approach (ICD-10-PCS; 2019-01-09)
PROC: 5A1D70Z Performance of Urinary Filtration, Intermittent, Less than 6 Hours Per Day (ICD-10-PCS; 2019-01-10)
PROC: 02HV33Z Insertion of Infusion Device into Superior Vena Cava, Percutaneous Approach (ICD-10-PCS; 2019-01-11)
PROC: B548ZZA Ultrasonography of Superior Vena Cava, Guidance (ICD-10-PCS; 2019-01-11)
PROC: 5A09357 Assistance with Respiratory Ventilation, Less than 24 Consecutive Hours, Continuous Positive Airway Pressure (ICD-10-PCS; 2019-01-11)
PROC: 5A1D70Z Performance of Urinary Filtration, Intermittent, Less than 6 Hours Per Day (ICD-10-PCS; 2019-01-11)
PROC: 5A1955Z Respiratory Ventilation, Greater than 96 Consecutive Hours (ICD-10-PCS; principal; 2019-01-12)
PROC: 0BH17EZ Insertion of Endotracheal Airway into Trachea, Via Natural or Artificial Opening (ICD-10-PCS; 2019-01-12)
PROC: 5A1D70Z Performance of Urinary Filtration, Intermittent, Less than 6 Hours Per Day (ICD-10-PCS; 2019-01-12)
PROC: 5A1D70Z Performance of Urinary Filtration, Intermittent, Less than 6 Hours Per Day (ICD-10-PCS; 2019-01-14)
PROC: 5A1D70Z Performance of Urinary Filtration, Intermittent, Less than 6 Hours Per Day (ICD-10-PCS; 2019-01-16)
PROC: 4A00X4Z Measurement of Central Nervous Electrical Activity, External Approach (ICD-10-PCS; 2019-01-17)
PROC: 5A09357 Assistance with Respiratory Ventilation, Less than 24 Consecutive Hours, Continuous Positive Airway Pressure (ICD-10-PCS; 2019-01-17)
PROC: 5A09357 Assistance with Respiratory Ventilation, Less than 24 Consecutive Hours, Continuous Positive Airway Pressure (ICD-10-PCS; 2019-01-18)
PROC: 5A1D70Z Performance of Urinary Filtration, Intermittent, Less than 6 Hours Per Day (ICD-10-PCS; 2019-01-18)
PROC: 5A09357 Assistance with Respiratory Ventilation, Less than 24 Consecutive Hours, Continuous Positive Airway Pressure (ICD-10-PCS; 2019-01-20)
PROC: 5A1D70Z Performance of Urinary Filtration, Intermittent, Less than 6 Hours Per Day (ICD-10-PCS; 2019-01-20)
PROC: 5A09357 Assistance with Respiratory Ventilation, Less than 24 Consecutive Hours, Continuous Positive Airway Pressure (ICD-10-PCS; 2019-01-21)
DX: A41.9 Sepsis, unspecified organism (principal); J96.02 Acute respiratory failure with hypercapnia; G92 Toxic encephalopathy; N18.6 End stage renal disease; J18.1 Lobar pneumonia, unspecified organism; I50.43 Acute on chronic combined systolic (congestive) and diastolic (congestive) heart failure; J96.01 Acute respiratory failure with hypoxia; R65.21 Severe sepsis with septic shock; E46 Unspecified protein-calorie malnutrition; E87.2 Acidosis; I82.501 Chronic embolism and thrombosis of unspecified deep veins of right lower extremity; I31.3 Pericardial effusion (noninflammatory); I13.2 Hypertensive heart and chronic kidney disease with heart failure and with stage 5 chronic kidney disease, or end stage renal disease; J44.0 Chronic obstructive pulmonary disease with (acute) lower respiratory infection; N25.81 Secondary hyperparathyroidism of renal origin; E83.41 Hypermagnesemia; E83.39 Other disorders of phosphorus metabolism; E03.9 Hypothyroidism, unspecified; B19.20 Unspecified viral hepatitis C without hepatic coma; Z99.2 Dependence on renal dialysis; D63.8 Anemia in other chronic diseases classified elsewhere; K74.60 Unspecified cirrhosis of liver; D72.821 Monocytosis (symptomatic); E16.2 Hypoglycemia, unspecified; E78.1 Pure hyperglyceridemia; R14.0 Abdominal distension (gaseous); F19.90 Other psychoactive substance use, unspecified, uncomplicated; G89.4 Chronic pain syndrome; I73.9 Peripheral vascular disease, unspecified; K21.9 Gastro-esophageal reflux disease without esophagitis; M53.3 Sacrococcygeal disorders, not elsewhere classified; Z78.1 Physical restraint status; Z87.11 Personal history of peptic ulcer disease; Z95.1 Presence of aortocoronary bypass graft; Z95.810 Presence of automatic (implantable) cardiac defibrillator; Z95.828 Presence of other vascular implants and grafts; Z88.2 Allergy status to sulfonamides; Z88.8 Allergy status to other drugs, medicaments and biological substances; Z79.82 Long term (current) use of aspirin; Z79.899 Other long term (current) drug therapy; Z72.89 Other problems related to lifestyle; Z68.23 Body mass index [BMI] 23.0-23.9, adult
CPT/HCPCS: 36415; 36569; 36600; 71045; 74018; 76705; 76937; 80048; 80061; 80076; 80202; 80307; 80320; 80329; 82140; 82375; 82550; 82553; 82805; 82962; 83605; 83735; 83880; 84100; 84145; 84439; 84443; 84481; 84484; 85379; 92610; 93005; 93970; 94003; 94640; 94660; 96361; 96374; 97162; 97166; 97530; 99285; A6261; C1725; C9113; J1200; J1644; J1650; J1815; J2060; J2250; J2270; J2310; J2370; J2405; J2543; J2765; J3010; J3370; J3490; J7040; J7042; J7050; J7060; J7131; J7620; P9047; G0480

== ENCOUNTER 2019-01-26 15:25 | Inpatient (IN) | payer MEDICARE, MEDICAID ==
[~2019-01-26] VITALS: Ht 165.1 cm; Wt 56.9 kg
[2019-01-26] MEDS ORDERED: SODIUM CHLORIDE 0.9% 500 ML IV ONE (17:00)
[2019-01-26 17:34] LABS: BASOPHILS % 1.7 % (0.0-2.0); EOSINOPHILS % 8.4 % (0.0-5.0); HEMATOCRIT. 29.3 % (36.0-48.0); HEMOGLOBIN. 9.3 g/dL (12.0-16.0); LYMPHOCYTES % 15.5 % (20.0-50.0); MEAN CORPUSCULAR HEMOGLOBIN 29.9 pg (28.0-32.0); MEAN PLATELET VOLUME 7.9 fl (7.4-10.4); MONOCYTES % 6.4 % (2.0-8.0); PLATELET 398 x1000/uL (130-400); RED BLOOD CELL COUNT 3.12 mill/uL (4.2-5.4); RED CELL DISTRIBUTION WIDTH 21.9 % (11.6-14.6)
[2019-01-26 17:38] LABS: CHLORIDE 102 mEq/L (98-107)
[2019-01-26 17:53] LABS: PROTHROMBIN TIME 10.5 sec (9.6-11.0)
[2019-01-26] MEDS ORDERED: ACETAMINOPHEN 325MG TABLET PO PRN (18:30)
[2019-01-26] MEDS ORDERED: ONDANSETRON HCL 4MG/2ML INJ IV PRN (18:30)
[2019-01-26] MEDS ORDERED: ONDANSETRON HCL 4MG/2ML INJ IV ONE (20:30)
[2019-01-26] MEDS ORDERED: MORPHINE SULFATE 4 MG/ML CPJ (NOT FOR IM USE) IV ONE (20:30)
[2019-01-26] MEDS ORDERED: ZOLPIDEM TARTRATE 5MG TABLET PO PRN (21:00)
[2019-01-26 21:50] VITALS: BP 110/86
[2019-01-26 22:00] VITALS: BP 110/86
[2019-01-27] VITALS: BP 82/42
[2019-01-27 02:00] VITALS: BP 87/40
[2019-01-27 04:00] VITALS: BP 81/50
[2019-01-27 06:00] VITALS: BP 100/76
[2019-01-27 06:18] LABS: BASOPHILS % 0.5 % (0.0-2.0); EOSINOPHILS % 8.9 % (0.0-5.0); HEMATOCRIT. 25.8 % (36.0-48.0); HEMOGLOBIN. 8.2 g/dL (12.0-16.0); LYMPHOCYTES % 8.4 % (20.0-50.0); MEAN CORPUSCULAR HEMOGLOBIN 30.4 pg (28.0-32.0); MEAN CORPUSCULAR VOLUME 95.9 fL (81.0-99.0); MEAN PLATELET VOLUME 7.9 fl (7.4-10.4); MONOCYTES % 7.5 % (2.0-8.0); NEUTROPHILS % 74.7 % (40.0-76.0); PLATELET 270 x1000/uL (130-400); RED BLOOD CELL COUNT 2.69 mill/uL (4.2-5.4); RED CELL DISTRIBUTION WIDTH 20.6 % (11.6-14.6)
[2019-01-27 08:00] VITALS: BP 140/100
[2019-01-27] MEDS ORDERED: PANTOPRAZOLE SODIUM 40 MG/VIAL IV SCH (09:00)
[2019-01-27 10:00] VITALS: BP 149/117
[2019-01-27] MEDS ORDERED: MORPHINE SULFATE 4 MG/ML CPJ (NOT FOR IM USE) IV PRN (11:15)
[2019-01-27] MEDS ORDERED: LEVOTHYROXINE SODIUM 125MCG TABLET PO SCH (11:15)
[2019-01-27] MEDS ORDERED: IPRATROPIUM/ALBUTEROL 0.5-3(2.5)MG/3ML NEB HHN PRN (13:45)
[2019-01-27] MEDS ORDERED: IPRATROPIUM/ALBUTEROL 0.5-3(2.5)MG/3ML NEB HHN SCH (18:00)
== END 2019-01-27 14:05 | disposition left against medical advice (07) | DRG 393 ==
LOC: ER 15:25 → 5EST 18:19 → EDBEDREQ 18:21 → EDBEDREQSVC 18:21 → ENRESERV 20:45 → CANBEDREQ 01-27 07:05
PROVIDERS: ADMIT Internal Medicine; ATTEND Internal Medicine
PROC: 30233N1 Transfusion of Nonautologous Red Blood Cells into Peripheral Vein, Percutaneous Approach (ICD-10-PCS; principal; 2019-01-26)
PROC: 5A1D70Z Performance of Urinary Filtration, Intermittent, Less than 6 Hours Per Day (ICD-10-PCS; 2019-01-27)
DX: K64.9 Unspecified hemorrhoids (principal); I50.43 Acute on chronic combined systolic (congestive) and diastolic (congestive) heart failure; J96.00 Acute respiratory failure, unspecified whether with hypoxia or hypercapnia; N18.6 End stage renal disease; E44.1 Mild protein-calorie malnutrition; I13.2 Hypertensive heart and chronic kidney disease with heart failure and with stage 5 chronic kidney disease, or end stage renal disease; I42.9 Cardiomyopathy, unspecified; M46.27 Osteomyelitis of vertebra, lumbosacral region; N25.81 Secondary hyperparathyroidism of renal origin; I31.3 Pericardial effusion (noninflammatory); I82.411 Acute embolism and thrombosis of right femoral vein; D62 Acute posthemorrhagic anemia; I82.511 Chronic embolism and thrombosis of right femoral vein; B19.20 Unspecified viral hepatitis C without hepatic coma; D63.8 Anemia in other chronic diseases classified elsewhere; E03.9 Hypothyroidism, unspecified; F17.200 Nicotine dependence, unspecified, uncomplicated; F19.90 Other psychoactive substance use, unspecified, uncomplicated; G89.4 Chronic pain syndrome; I73.9 Peripheral vascular disease, unspecified; I34.0 Nonrheumatic mitral (valve) insufficiency; K59.00 Constipation, unspecified; Z86.718 Personal history of other venous thrombosis and embolism; Z87.11 Personal history of peptic ulcer disease; Z95.810 Presence of automatic (implantable) cardiac defibrillator; Z95.828 Presence of other vascular implants and grafts; Z99.2 Dependence on renal dialysis; Z88.2 Allergy status to sulfonamides; Z88.8 Allergy status to other drugs, medicaments and biological substances; Z79.1 Long term (current) use of non-steroidal anti-inflammatories (NSAID); Z79.890 Hormone replacement therapy; Z79.899 Other long term (current) drug therapy; Z71.6 Tobacco abuse counseling; Z79.01 Long term (current) use of anticoagulants; Z68.20 Body mass index [BMI] 20.0-20.9, adult
CPT/HCPCS: 36415; 71045; 80048; 82270; 86850; 86900; 86920; 96361; 96374; 96375; 99291; C9113; J2270; J2405; J7040; P9016

== ENCOUNTER 2019-02-06 16:54 | Inpatient (IN) | payer MEDICARE, MEDICAID ==
[~2019-02-06] VITALS: Ht 165.1 cm; Wt 58.5 kg
[2019-02-06 19:11] LABS: CHLORIDE 102 mEq/L (98-107); HEMATOCRIT. 22.1 % (36.0-48.0); HEMOGLOBIN. 7.1 g/dL (12.0-16.0); MEAN CORPUSCULAR HEMOGLOBIN 32.1 pg (28.0-32.0); MEAN CORPUSCULAR VOLUME 99.5 fL (81.0-99.0); MEAN PLATELET VOLUME 7.7 fl (7.4-10.4); PLATELET 227 x1000/uL (130-400); RED BLOOD CELL COUNT 2.22 mill/uL (4.2-5.4)
[2019-02-06 19:14] LABS: PARTIAL THROMBOPLASTIN TIME 30.9 sec (23.4-31.0); PROTHROMBIN TIME 10.2 sec (9.6-11.0)
[2019-02-06 20:27] LABS: ATYPICAL LYMPHOCYTES 1; NUCLEATED RED BLOOD CELLS 2 /100 WBC; PLATELET ESTIMATE NORMAL
[2019-02-06] MEDS ORDERED: ONDANSETRON HCL 4MG/2ML INJ IV PRN (22:15)
[2019-02-06] MEDS ORDERED: DOCUSATE SODIUM 100MG CAPSULE PO PRN (22:15)
[2019-02-06] MEDS ORDERED: CLONIDINE 0.1MG TABLET PO PRN (22:15)
[2019-02-06] MEDS ORDERED: ACETAMINOPHEN 325MG TABLET PO PRN (22:15)
[2019-02-06] MEDS ORDERED: IPRATROPIUM/ALBUTEROL 0.5-3(2.5)MG/3ML NEB INH PRN (22:15)
[2019-02-07] VITALS (10 sets, daily range): BP systolic 98–152; BP diastolic 57–94
[2019-02-07 07:02] LABS: HEMATOCRIT. 27.9 % (36.0-48.0); HEMOGLOBIN. 8.9 g/dL (12.0-16.0); MEAN CORPUSCULAR HEMOGLOBIN 31.6 pg (28.0-32.0); MEAN CORPUSCULAR VOLUME 98.6 fL (81.0-99.0); MEAN PLATELET VOLUME 7.9 fl (7.4-10.4); PLATELET 216 x1000/uL (130-400); RED BLOOD CELL COUNT 2.83 mill/uL (4.2-5.4); RED CELL DISTRIBUTION WIDTH 23.8 % (11.6-14.6)
[2019-02-07 07:16] LABS: LDL CHOLESTEROL 87 mg/dL (5-100)
[2019-02-07 07:18] LABS: CREATINE KINASE 60 IU/L (26-192); HDL CHOLESTEROL 52 mg/dL (40-59)
[2019-02-07 07:20] LABS: CREATINE KINASE MB FRACTION 1.4 ng/mL (0.5-3.6)
[2019-02-07] MEDS: DIPHENHYDRAMINE 25MG CAPSULE PO PRN ×2 (08:28→19:57)
[2019-02-07] MEDS: FAMOTIDINE 20MG/2ML VIAL IV SCH ×2 (08:29→08:42)
[2019-02-07] MEDS: HYDROCODONE/ACETAMINOPHEN 5/325MG TABLET PO PRN ×2 (08:29→19:58)
[2019-02-07] MEDS ORDERED: ONDANSETRON HCL 4MG TABLET PO PRN (12:30)
[2019-02-07 14:05] LABS: NUCLEATED RED BLOOD CELLS 1 /100 WBC; PLATELET ESTIMATE NORMAL
[2019-02-07 17:13] LABS: HEMATOCRIT 26.4 % (36.0-48.0); HEMOGLOBIN 8.5 g/dL (12.0-16.0); MEAN CORPUSCULAR HEMOGLOBIN 31.6 pg (28.0-32.0); MEAN CORPUSCULAR VOLUME 98.7 fL (81.0-99.0); PLATELET 199 x1000/uL (130-400); RED BLOOD CELL COUNT 2.67 mill/uL (4.2-5.4); RED CELL DISTRIBUTION WIDTH 23.1 % (11.6-14.6)
[2019-02-07 17:36] LABS: CREATINE KINASE 52 IU/L (26-192)
[2019-02-07 17:38] LABS: CREATINE KINASE MB FRACTION < 1.0 ng/mL (0.5-3.6)
[2019-02-07] MEDS ORDERED: EPOETIN ALFA 10000UNITS/ML VIAL SUBCUT SCH (21:00)
[2019-02-07] MEDS ORDERED: DIPHENHYDRAMINE 50MG/ML VIAL IV NR (23:15)
[2019-02-08] VITALS: BP 130/67
[2019-02-08 00:40] LABS: HEMATOCRIT 24.4 % (36.0-48.0); HEMOGLOBIN 7.9 g/dL (12.0-16.0); MEAN CORPUSCULAR HEMOGLOBIN 31.8 pg (28.0-32.0); PLATELET 171 x1000/uL (130-400); RED BLOOD CELL COUNT 2.49 mill/uL (4.2-5.4); RED CELL DISTRIBUTION WIDTH 23.3 % (11.6-14.6)
[2019-02-08] MEDS: HYDROCODONE/ACETAMINOPHEN 5/325MG TABLET PO PRN ×3 (01:06→20:31)
[2019-02-08] MEDS: DIPHENHYDRAMINE 50MG CAPSULE PO PRN ×3 (01:06→20:31)
[2019-02-08 04:00] VITALS: BP 127/78
[2019-02-08 08:00] VITALS: BP 119/74
[2019-02-08] MEDS: FAMOTIDINE 20MG/2ML VIAL IV SCH (09:16)
[2019-02-08 13:34] VITALS: BP 111/65
[2019-02-08 16:00] VITALS: BP 116/63
[2019-02-08 20:00] VITALS: BP 128/79
[2019-02-09] VITALS: BP 106/63
[2019-02-09] MEDS: DIPHENHYDRAMINE 50MG CAPSULE PO PRN (00:48)
[2019-02-09] MEDS: HYDROCODONE/ACETAMINOPHEN 5/325MG TABLET PO PRN (00:48)
[2019-02-09 04:00] VITALS: BP 116/67
[2019-02-09 08:00] VITALS: BP 108/74
[2019-02-09] MEDS: FAMOTIDINE 20MG/2ML VIAL IV SCH (09:00)
[2019-02-09 10:07] LABS: PROTHROMBIN TIME 10.1 sec (9.6-11.0)
[2019-02-09 10:10] LABS: HEMATOCRIT 24.9 % (36.0-48.0); MEAN CORPUSCULAR HEMOGLOBIN 31.8 pg (28.0-32.0); MEAN CORPUSCULAR VOLUME 99.1 fL (81.0-99.0); PLATELET 168 x1000/uL (130-400); RED BLOOD CELL COUNT 2.51 mill/uL (4.2-5.4); RED CELL DISTRIBUTION WIDTH 21.5 % (11.6-14.6)
[2019-02-09 12:00] VITALS: BP 127/77
[2019-02-09 16:00] VITALS: BP 106/66
[2019-02-09 17:34] VITALS: BP 106/66
[2019-02-09] MEDS ORDERED: PROPOFOL 200MG/20ML VIAL IV ONE (17:42)
[2019-02-09] MEDS ORDERED: LIDOCAINE HCL 1% 20ML VIAL (Pyxis) INJ ONE (17:42)
[2019-02-09] MEDS ORDERED: OMEPRAZOLE 20MG CAPSULE EXTENDED RELEASE PO SCH (18:15)
[2019-02-09] MEDS ORDERED: ONDANSETRON HCL 4MG/2ML INJ IV PRN (18:15)
== END 2019-02-09 19:19 | DRG 291 ==
LOC: ER 16:54 → 7WST 21:52 → EDBEDREQTM 21:53 → EDBEDREQ 21:53 → ENRESERV 22:45 → 7WST 02-07 00:13
PROVIDERS: ADMIT Internal Medicine; ATTEND Internal Medicine
PROC: 30233N1 Transfusion of Nonautologous Red Blood Cells into Peripheral Vein, Percutaneous Approach (ICD-10-PCS; principal; 2019-02-07)
PROC: 5A1D70Z Performance of Urinary Filtration, Intermittent, Less than 6 Hours Per Day (ICD-10-PCS; 2019-02-07)
PROC: 0DB68ZX Excision of Stomach, Via Natural or Artificial Opening Endoscopic, Diagnostic (ICD-10-PCS; 2019-02-09)
DX: I13.2 Hypertensive heart and chronic kidney disease with heart failure and with stage 5 chronic kidney disease, or end stage renal disease (principal); N18.6 End stage renal disease; E46 Unspecified protein-calorie malnutrition; I50.20 Unspecified systolic (congestive) heart failure; N25.81 Secondary hyperparathyroidism of renal origin; I31.3 Pericardial effusion (noninflammatory); D50.0 Iron deficiency anemia secondary to blood loss (chronic); E03.9 Hypothyroidism, unspecified; F17.210 Nicotine dependence, cigarettes, uncomplicated; D63.8 Anemia in other chronic diseases classified elsewhere; I73.9 Peripheral vascular disease, unspecified; G89.4 Chronic pain syndrome; K29.70 Gastritis, unspecified, without bleeding; F19.90 Other psychoactive substance use, unspecified, uncomplicated; Z99.2 Dependence on renal dialysis; Z79.899 Other long term (current) drug therapy; Z86.718 Personal history of other venous thrombosis and embolism; Z95.810 Presence of automatic (implantable) cardiac defibrillator; Z87.11 Personal history of peptic ulcer disease; Z88.1 Allergy status to other antibiotic agents; Z79.82 Long term (current) use of aspirin; Z88.2 Allergy status to sulfonamides; Z68.21 Body mass index [BMI] 21.0-21.9, adult; Z72.89 Other problems related to lifestyle
CPT/HCPCS: 36415; 80048; 80061; 82550; 82553; 84443; 84484; 85027; 85044; 86850; 86880; 86900; 86920; 88305; 88312; 88313; 96365; 96375; 99285; C1893; J0885; J1200; J2405; J2704; J3490; J7050; P9016; Q0162; Q0163

== ENCOUNTER 2019-02-28 19:07 | Emergency (ER) | payer MEDICARE, MEDICAID ==
[~2019-02-28] VITALS: Ht 167.6 cm; Wt 65.0 kg
[~2019-02-28 19:07] MED LIST changes: -ASPI-1159 MT; +ASPI-1393 MT; -CALC667T5 MT; +CALC667T6 MT
[2019-02-28 22:04] VITALS: BP 127/84
== END 2019-02-28 22:22 | disposition home or self-care (01) ==
LOC: ER 19:54
DX: T82.898A Other specified complication of vascular prosthetic devices, implants and grafts, initial encounter (principal); F12.10 Cannabis abuse, uncomplicated; I12.0 Hypertensive chronic kidney disease with stage 5 chronic kidney disease or end stage renal disease; N18.6 End stage renal disease; Z86.19 Personal history of other infectious and parasitic diseases; Z79.899 Other long term (current) drug therapy; Z88.3 Allergy status to other anti-infective agents; Z88.2 Allergy status to sulfonamides; Z99.2 Dependence on renal dialysis; Y84.1 Kidney dialysis as the cause of abnormal reaction of the patient, or of later complication, without mention of misadventure at the time of the procedure; Y92.128 Other place in nursing home as the place of occurrence of the external cause
CPT/HCPCS: 99283

== ENCOUNTER 2019-03-09 05:20 | Day surgery (SDC) | payer MEDICARE, MEDICAID ==
[~2019-03-09] VITALS: Ht 167.6 cm; Wt 56.5 kg
[~2019-03-09 05:20] MED LIST changes: -ASPI-1393 MT; +ASPI-1393 PO; -CALC0.253 MT; +CALC0.253 PO; -CARV3.1242 MT; +CARV3.1242 PO; -GABA-529 MT; +GABA-529 PO; -LEVO175T7 PO; +MELA5TAB19 PO
[2019-03-09] MEDS ORDERED: LIDOCAINE HCL 1% 20ML VIAL (Pyxis) INJ ONE (06:47)
[2019-03-09] MEDS ORDERED: BACITRACIN 15GM TUBE TOP ONE (06:47)
[2019-03-09] MEDS ORDERED: BUPIVACAINE HCL/PF 0.5% (5MG/ML) 10ML ONE ×2 (06:47→06:48)
[2019-03-09] MEDS ORDERED: THROMBIN (BOVINE) 5000 UNITS/VIAL TOP ONE (06:48)
[2019-03-09] MEDS ORDERED: BACITRACIN 50,000 UNITS/VIAL ONE (06:48)
[2019-03-09] MEDS ORDERED: HEPARIN SODIUM 1,000 UNIT/1ML VIAL IV ONE (06:49)
[2019-03-09] MEDS ORDERED: PAPAVERINE HCL 30 MG/ML 2ML IV ONE (06:50)
[2019-03-09 06:54] LABS: PARTIAL THROMBOPLASTIN TIME 34.8 sec (23.4-31.0); PROTHROMBIN TIME 10.4 sec (9.6-11.0)
[2019-03-09 07:00] LABS: HEMATOCRIT. 37.6 % (36.0-48.0); MEAN CORPUSCULAR HEMOGLOBIN 30.8 pg (28.0-32.0); MEAN CORPUSCULAR VOLUME 96.3 fL (81.0-99.0); MEAN PLATELET VOLUME 8.3 fl (7.4-10.4); PLATELET 224 x1000/uL (130-400); RED CELL DISTRIBUTION WIDTH 20.9 % (11.6-14.6)
[2019-03-09] MEDS ORDERED: OMEP40CA34 PO (07:10)
[2019-03-09] MEDS ORDERED: SODIUM CHLORIDE 0.9% 500 ML IV ONE (07:25)
[2019-03-09] MEDS ORDERED: AMIN30LI2 PO (07:28)
[2019-03-09] MEDS ORDERED: GABA-531 PO (07:31)
[2019-03-09] MEDS ORDERED: METH-375 PO (07:32)
[2019-03-09] MEDS ORDERED: SODIUM CHLORIDE 0.9% IV ONE (08:15)
[2019-03-09] MEDS ORDERED: DESMOPRESSIN ACETATE IV ONE (08:15)
[2019-03-09 09:16] LABS: PLATELET ESTIMATE NORMAL
[2019-03-09] MEDS ORDERED: HYDROMORPHONE HCL/PF 2MG/ML CPJ IV PRN (09:30)
[2019-03-09 09:57] VITALS: BP 134/79
[2019-03-09] MEDS ORDERED: IBUPROFEN 200MG TABLET PO PRN (11:15)
== END 2019-03-09 12:00 | disposition home or self-care (01) ==
LOC: OR 05:20
PROVIDERS: ATTEND Surgery Vascular Surgery
DX: I13.2 Hypertensive heart and chronic kidney disease with heart failure and with stage 5 chronic kidney disease, or end stage renal disease (principal); N18.6 End stage renal disease; I50.9 Heart failure, unspecified; D64.9 Anemia, unspecified; E03.9 Hypothyroidism, unspecified; Z98.890 Other specified postprocedural states; Z79.899 Other long term (current) drug therapy; Z88.2 Allergy status to sulfonamides; Z88.8 Allergy status to other drugs, medicaments and biological substances
CPT/HCPCS: 36415; 36832; 37607; 80048; 85025; 85610; 85730; 93005; C1768; J1170; J1644; J2597; J3490; J7040; J2440

== ENCOUNTER 2019-08-11 05:29 | Emergency (ER) | payer MEDICARE, MEDICAID ==
[~2019-08-11] VITALS: Ht 165.1 cm; Wt 50.0 kg
[~2019-08-11 05:29] MED LIST changes: -ACET-2178 PO; +AMIN30LI2 PO; -GABA-529 PO; +GABA-531 PO; -HALO2TAB MT; -HYDR4TAB56 PO; +METH-375 PO; +OMEP40CA34 PO; -PANT40TA4 PO; -SEVE800T8 PO; +TOPUD PO
[2019-08-11] MEDS ORDERED: ACETAMINOPHEN WITH CODEINE 300/30MG TABLET PO ONE (06:45)
[2019-08-11 07:46] LABS: HEMATOCRIT. 30.3 % (36.0-48.0); HEMOGLOBIN. 9.6 g/dL (12.0-16.0); MEAN CORPUSCULAR HEMOGLOBIN 29.5 pg (28.0-32.0); MEAN CORPUSCULAR VOLUME 93.1 fL (81.0-99.0); MEAN PLATELET VOLUME 9.1 fl (7.4-10.4); PLATELET 158 x1000/uL (130-400); RED BLOOD CELL COUNT 3.26 mill/uL (4.2-5.4); RED CELL DISTRIBUTION WIDTH 21.3 % (11.6-14.6)
[2019-08-11 08:04] LABS: NUCLEATED RED BLOOD CELLS 1 /100 WBC; PLATELET ESTIMATE NORMAL
[2019-08-11 09:06] VITALS: BP 148/62
== END 2019-08-11 09:10 | disposition home or self-care (01) ==
LOC: ER 05:29
DX: S30.0XXA Contusion of lower back and pelvis, initial encounter (principal); I13.2 Hypertensive heart and chronic kidney disease with heart failure and with stage 5 chronic kidney disease, or end stage renal disease; E11.22 Type 2 diabetes mellitus with diabetic chronic kidney disease; N18.6 End stage renal disease; I50.9 Heart failure, unspecified; Z99.2 Dependence on renal dialysis; Z88.2 Allergy status to sulfonamides; Z79.899 Other long term (current) drug therapy; Z79.82 Long term (current) use of aspirin; W01.0XXA Fall on same level from slipping, tripping and stumbling without subsequent striking against object, initial encounter; Y93.89 Activity, other specified; Y92.89 Other specified places as the place of occurrence of the external cause; Y99.8 Other external cause status
CPT/HCPCS: 36415; 80048; 93005; 99283

== ENCOUNTER 2019-09-30 21:17 | Inpatient (IN) | payer MEDICARE, MEDICAID ==
[~2019-09-30] VITALS: Ht 165.1 cm; Wt 57.2 kg
[~2019-09-30 21:17] MED LIST changes: -ASPI-1393 PO; +ASPI-1497 PO; -MIDO5TAB MT; +MIDO5TAB4 MT; +OMEP40CA12 PO; -OMEP40CA34 PO
[2019-10-01] MEDS ORDERED: KETOROLAC 15MG/ML VIAL IM ONE (01:45)
[2019-10-01] MEDS ORDERED: ACETAMINOPHEN 325MG TABLET PO ONE (11:15)
[2019-10-01 13:45] LABS: BASOPHILS % 1.4 % (0.0-2.0); EOSINOPHILS % 3.4 % (0.0-5.0); HEMATOCRIT. 34.3 % (36.0-48.0); HEMOGLOBIN. 11.3 g/dL (12.0-16.0); LYMPHOCYTES % 16.6 % (20.0-50.0); MEAN CORPUSCULAR HEMOGLOBIN 29.1 pg (28.0-32.0); MONOCYTES % 6.9 % (2.0-8.0); NEUTROPHILS % 71.7 % (40.0-76.0); RED CELL DISTRIBUTION WIDTH 19.9 % (11.6-14.6)
[2019-10-01 13:46] LABS: CHLORIDE 106 mEq/L (98-107)
[2019-10-01 14:07] LABS: MEAN PLATELET VOLUME 8.3 fl (7.4-10.4); PLATELET 126 x1000/uL (130-400)
[2019-10-01] MEDS ORDERED: CLONIDINE 0.1MG TABLET PO PRN (14:30)
[2019-10-01] MEDS ORDERED: ONDANSETRON HCL 4MG/2ML INJ IV PRN (14:30)
[2019-10-01 15:04] LABS: PHOSPHORUS 8.2 mg/dL (2.5-4.9)
[2019-10-01] MEDS ORDERED: HYDROCODONE/ACETAMINOPHEN 5/325MG TABLET PO PRN (18:00)
[2019-10-01 19:55] VITALS: BP 125/85
[2019-10-01] MEDS: MORPHINE SULFATE 2 MG/ML CPJ (NOT FOR IM USE) IV PRN (19:55)
[2019-10-01 20:00] VITALS: BP 125/85
[2019-10-01] MEDS: DIPHENHYDRAMINE 50MG/ML VIAL IV PRN (21:26)
[2019-10-02] VITALS: BP 103/66
[2019-10-02] MEDS: MORPHINE SULFATE 2 MG/ML CPJ (NOT FOR IM USE) IV PRN ×3 (02:20→21:36)
[2019-10-02 04:00] VITALS: BP 132/99
[2019-10-02 07:47] LABS: EOSINOPHILS % 4.7 % (0.0-5.0); HEMATOCRIT. 34.7 % (36.0-48.0); HEMOGLOBIN. 11.2 g/dL (12.0-16.0); LYMPHOCYTES % 16.6 % (20.0-50.0); MEAN CORPUSCULAR HEMOGLOBIN 28.4 pg (28.0-32.0); MEAN CORPUSCULAR VOLUME 87.9 fL (81.0-99.0); MEAN PLATELET VOLUME 8.3 fl (7.4-10.4); MONOCYTES % 7.7 % (2.0-8.0); PLATELET 135 x1000/uL (130-400); RED BLOOD CELL COUNT 3.95 mill/uL (4.2-5.4)
[2019-10-02 07:58] LABS: CHLORIDE 104 mEq/L (98-107)
[2019-10-02 08:00] VITALS: BP 99/46
[2019-10-02 08:05] LABS: LDL CHOLESTEROL 132 mg/dL (5-100)
[2019-10-02 08:07] LABS: HDL CHOLESTEROL 28 mg/dL (40-59)
[2019-10-02] MEDS: CINACALCET HCL 60MG TABLET PO SCH (08:43)
[2019-10-02] MEDS: CALCIUM ACETATE 667MG CAPSULE PO SCH ×3 (08:43→17:31)
[2019-10-02 11:54] VITALS: BP 106/71
[2019-10-02 16:00] VITALS: BP 93/45
[2019-10-02 20:00] VITALS: BP 110/58
[2019-10-02] MEDS: ATORVASTATIN CALCIUM 20MG TABLET PO SCH (21:17)
[2019-10-03 00:09] VITALS: BP 120/77
[2019-10-03] MEDS: MORPHINE SULFATE 2 MG/ML CPJ (NOT FOR IM USE) IV PRN ×2 (01:15→18:13)
[2019-10-03 04:00] VITALS: BP 113/58
[2019-10-03 07:13] LABS: BASOPHILS % 1.1 % (0.0-2.0); EOSINOPHILS % 4.8 % (0.0-5.0); HEMATOCRIT. 38.1 % (36.0-48.0); HEMOGLOBIN. 12.2 g/dL (12.0-16.0); LYMPHOCYTES % 21.9 % (20.0-50.0); MEAN CORPUSCULAR HEMOGLOBIN 28.4 pg (28.0-32.0); MEAN CORPUSCULAR VOLUME 88.4 fL (81.0-99.0); MEAN PLATELET VOLUME 8.4 fl (7.4-10.4); MONOCYTES % 9.9 % (2.0-8.0); NEUTROPHILS % 62.3 % (40.0-76.0); PLATELET 163 x1000/uL (130-400); RED BLOOD CELL COUNT 4.32 mill/uL (4.2-5.4); RED CELL DISTRIBUTION WIDTH 19.3 % (11.6-14.6)
[2019-10-03 08:00] VITALS: BP 99/64
[2019-10-03] MEDS: CINACALCET HCL 60MG TABLET PO SCH (08:12)
[2019-10-03] MEDS: LEVOTHYROXINE SODIUM 75MCG TABLET PO SCH (08:13)
[2019-10-03] MEDS: FOLIC ACID/VITAMIN B COMP W-C TABLET PO SCH (08:13)
[2019-10-03] MEDS: CALCIUM ACETATE 667MG CAPSULE PO SCH ×3 (08:13→17:49)
[2019-10-03] MEDS ORDERED: HEPARIN SODIUM 1,000 UNIT/1ML VIAL IV SCH (11:15)
[2019-10-03 12:00] VITALS: BP 94/57
[2019-10-03 16:00] VITALS: BP 101/48
[2019-10-03 20:00] VITALS: BP 90/53
[2019-10-03] MEDS: ATORVASTATIN CALCIUM 20MG TABLET PO SCH (21:09)
[2019-10-04] VITALS: BP 97/52
[2019-10-04 04:00] VITALS: BP 96/49
[2019-10-04] MEDS: LEVOTHYROXINE SODIUM 75MCG TABLET PO SCH (07:49)
[2019-10-04] MEDS: CALCIUM ACETATE 667MG CAPSULE PO SCH ×3 (07:50→17:47)
[2019-10-04 08:00] VITALS: BP 99/38
[2019-10-04] MEDS: CINACALCET HCL 60MG TABLET PO SCH (08:47)
[2019-10-04] MEDS: FOLIC ACID/VITAMIN B COMP W-C TABLET PO SCH (08:48)
[2019-10-04] MEDS: ASPIRIN 81MG TABLET PO SCH (08:51)
[2019-10-04] MEDS: PANTOPRAZOLE 40MG DR TABLET PO SCH (08:51)
[2019-10-04 12:00] VITALS: BP 106/47
[2019-10-04] MEDS: MORPHINE SULFATE 2 MG/ML CPJ (NOT FOR IM USE) IV PRN ×3 (12:58→21:24)
[2019-10-04] MEDS: DIPHENHYDRAMINE 50MG/ML VIAL IV PRN ×2 (13:58→17:42)
[2019-10-04 16:00] VITALS: BP 106/46
[2019-10-04 20:00] VITALS: BP 123/75
[2019-10-04] MEDS: ATORVASTATIN CALCIUM 20MG TABLET PO SCH (20:30)
[2019-10-05] VITALS: BP 100/51
[2019-10-05 04:00] VITALS: BP 106/66
[2019-10-05 08:00] VITALS: BP 87/57
[2019-10-05] MEDS: CALCIUM ACETATE 667MG CAPSULE PO SCH ×3 (09:50→19:07)
[2019-10-05] MEDS: LEVOTHYROXINE SODIUM 75MCG TABLET PO SCH (09:50)
[2019-10-05] MEDS: ASPIRIN 81MG TABLET PO SCH (09:50)
[2019-10-05] MEDS: FOLIC ACID/VITAMIN B COMP W-C TABLET PO SCH (09:50)
[2019-10-05] MEDS: CINACALCET HCL 60MG TABLET PO SCH (09:51)
[2019-10-05] MEDS: PANTOPRAZOLE 40MG DR TABLET PO SCH (09:51)
[2019-10-05] MEDS: MORPHINE SULFATE 2 MG/ML CPJ (NOT FOR IM USE) IV PRN ×2 (10:37→14:38)
[2019-10-05] MEDS: DIPHENHYDRAMINE 50MG/ML VIAL IV PRN ×2 (11:17→15:35)
[2019-10-05 12:00] VITALS: BP 133/57
[2019-10-05 16:00] VITALS: BP 123/55
[2019-10-05 20:00] VITALS: BP 124/79
[2019-10-05] MEDS: ATORVASTATIN CALCIUM 20MG TABLET PO SCH (21:29)
[2019-10-06] VITALS: BP 119/71
[2019-10-06 04:00] VITALS: BP 110/76
[2019-10-06] MEDS: MORPHINE SULFATE 2 MG/ML CPJ (NOT FOR IM USE) IV PRN (05:45)
[2019-10-06] MEDS: DIPHENHYDRAMINE 50MG/ML VIAL IV PRN ×2 (06:39→11:30)
[2019-10-06 07:10] LABS: EOSINOPHILS % 3.2 % (0.0-5.0); HEMATOCRIT. 34.6 % (36.0-48.0); HEMOGLOBIN. 11.1 g/dL (12.0-16.0); LYMPHOCYTES % 14.7 % (20.0-50.0); MEAN CORPUSCULAR HEMOGLOBIN 28.5 pg (28.0-32.0); MEAN CORPUSCULAR VOLUME 88.6 fL (81.0-99.0); MEAN PLATELET VOLUME 8.6 fl (7.4-10.4); MONOCYTES % 9.4 % (2.0-8.0); NEUTROPHILS % 71.7 % (40.0-76.0); PLATELET 169 x1000/uL (130-400); RED CELL DISTRIBUTION WIDTH 19.5 % (11.6-14.6)
[2019-10-06 08:00] VITALS: BP 162/60
[2019-10-06 08:16] LABS: PHOSPHORUS 4.6 mg/dL (2.5-4.9)
[2019-10-06] MEDS: LEVOTHYROXINE SODIUM 75MCG TABLET PO SCH (08:49)
[2019-10-06] MEDS: CINACALCET HCL 60MG TABLET PO SCH (08:50)
[2019-10-06] MEDS: ASPIRIN 81MG TABLET PO SCH (08:50)
[2019-10-06] MEDS: FOLIC ACID/VITAMIN B COMP W-C TABLET PO SCH (08:50)
[2019-10-06] MEDS: CALCIUM ACETATE 667MG CAPSULE PO SCH ×3 (08:50→19:23)
[2019-10-06] MEDS: FAMOTIDINE 20MG TABLET PO SCH (08:50)
[2019-10-06 12:00] VITALS: BP_SYST 100; BP_SYST 106; BP_DIAS 58; BP_DIAS 60
[2019-10-06] MEDS: ATORVASTATIN CALCIUM 20MG TABLET PO SCH (21:59)
[2019-10-06] MEDS ORDERED: HYDROCODONE/ACETAMINOPHEN 5/325MG TABLET PO PRN (22:45)
[2019-10-07] VITALS (7 sets, daily range): BP systolic 98–127; BP diastolic 47–69
[2019-10-07 07:10] LABS: HEMATOCRIT. 33.7 % (36.0-48.0); HEMOGLOBIN. 10.8 g/dL (12.0-16.0); MEAN CORPUSCULAR HEMOGLOBIN 28.5 pg (28.0-32.0); MEAN CORPUSCULAR VOLUME 88.7 fL (81.0-99.0); MEAN PLATELET VOLUME 8.5 fl (7.4-10.4); PLATELET 155 x1000/uL (130-400); RED CELL DISTRIBUTION WIDTH 19.3 % (11.6-14.6)
[2019-10-07] MEDS: CALCIUM ACETATE 667MG CAPSULE PO SCH ×3 (08:10→18:10)
[2019-10-07] MEDS: ASPIRIN 81MG TABLET PO SCH (09:42)
[2019-10-07] MEDS: FOLIC ACID/VITAMIN B COMP W-C TABLET PO SCH (09:43)
[2019-10-07] MEDS: FAMOTIDINE 20MG TABLET PO SCH (09:43)
[2019-10-07] MEDS: CINACALCET HCL 60MG TABLET PO SCH (09:43)
[2019-10-07] MEDS: LEVOTHYROXINE SODIUM 75MCG TABLET PO SCH (09:44)
[2019-10-07] MEDS: DIPHENHYDRAMINE 50MG/ML VIAL IV PRN ×2 (13:51→20:47)
[2019-10-07 14:01] LABS: PLATELET ESTIMATE NORMAL
[2019-10-07] MEDS: ATORVASTATIN CALCIUM 20MG TABLET PO SCH (20:47)
[2019-10-08 04:00] VITALS: BP 100/34
[2019-10-08] MEDS: DIPHENHYDRAMINE 50MG/ML VIAL IV PRN ×4 (06:22→20:20)
[2019-10-08 06:57] LABS: BASOPHILS % 1.9 % (0.0-2.0); EOSINOPHILS % 4.3 % (0.0-5.0); HEMATOCRIT. 32.6 % (36.0-48.0); HEMOGLOBIN. 10.6 g/dL (12.0-16.0); LYMPHOCYTES % 19.7 % (20.0-50.0); MEAN CORPUSCULAR HEMOGLOBIN 28.8 pg (28.0-32.0); MEAN CORPUSCULAR VOLUME 88.6 fL (81.0-99.0); MEAN PLATELET VOLUME 8.4 fl (7.4-10.4); MONOCYTES % 10.9 % (2.0-8.0); NEUTROPHILS % 63.2 % (40.0-76.0); PLATELET 156 x1000/uL (130-400); RED BLOOD CELL COUNT 3.68 mill/uL (4.2-5.4); RED CELL DISTRIBUTION WIDTH 19.6 % (11.6-14.6)
[2019-10-08 08:00] VITALS: BP 104/50
[2019-10-08] MEDS: FAMOTIDINE 20MG TABLET PO SCH (08:53)
[2019-10-08] MEDS: LEVOTHYROXINE SODIUM 75MCG TABLET PO SCH (08:53)
[2019-10-08] MEDS: CALCIUM ACETATE 667MG CAPSULE PO SCH ×3 (08:53→18:46)
[2019-10-08] MEDS: FOLIC ACID/VITAMIN B COMP W-C TABLET PO SCH (08:53)
[2019-10-08] MEDS: CINACALCET HCL 60MG TABLET PO SCH (08:53)
[2019-10-08] MEDS: ASPIRIN 81MG TABLET PO SCH (08:53)
[2019-10-08 12:00] VITALS: BP 130/81
[2019-10-08 16:00] VITALS: BP 115/52
[2019-10-08 20:00] VITALS: BP 93/36
[2019-10-08] MEDS: ATORVASTATIN CALCIUM 20MG TABLET PO SCH (20:20)
[2019-10-08] MEDS ORDERED: EPOETIN ALFA 4000UNITS/ML VIAL SUBCUT PRN (21:00)
[2019-10-09] VITALS: BP 93/46
[2019-10-09 04:00] VITALS: BP 103/49
[2019-10-09] MEDS: FAMOTIDINE 20MG TABLET PO SCH (06:34)
[2019-10-09] MEDS: LEVOTHYROXINE SODIUM 75MCG TABLET PO SCH (06:35)
[2019-10-09 08:00] VITALS: BP 98/57
[2019-10-09] MEDS: ASPIRIN 81MG TABLET PO SCH (08:42)
[2019-10-09] MEDS: CALCIUM ACETATE 667MG CAPSULE PO SCH ×3 (08:42→18:38)
[2019-10-09] MEDS: FOLIC ACID/VITAMIN B COMP W-C TABLET PO SCH (08:42)
[2019-10-09] MEDS: DIPHENHYDRAMINE 50MG/ML VIAL IV PRN ×3 (08:43→22:55)
[2019-10-09] MEDS: CINACALCET HCL 60MG TABLET PO SCH (08:43)
[2019-10-09 12:01] VITALS: BP 99/64
[2019-10-09 16:00] VITALS: BP 93/54
[2019-10-09 16:43] LABS: BASOPHILS % 0.8 % (0.0-2.0); EOSINOPHILS % 2.8 % (0.0-5.0); HEMOGLOBIN. 11.6 g/dL (12.0-16.0); LYMPHOCYTES % 20.3 % (20.0-50.0); MEAN CORPUSCULAR HEMOGLOBIN 28.3 pg (28.0-32.0); MEAN CORPUSCULAR VOLUME 87.7 fL (81.0-99.0); MEAN PLATELET VOLUME 8.6 fl (7.4-10.4); MONOCYTES % 12.4 % (2.0-8.0); NEUTROPHILS % 63.7 % (40.0-76.0); PLATELET 165 x1000/uL (130-400); RED BLOOD CELL COUNT 4.11 mill/uL (4.2-5.4); RED CELL DISTRIBUTION WIDTH 18.9 % (11.6-14.6)
[2019-10-09 20:00] VITALS: BP 104/52
[2019-10-09] MEDS: ATORVASTATIN CALCIUM 20MG TABLET PO SCH (22:15)
[2019-10-09] MEDS: HYDROCODONE/APAP 7.5/325MG 1 TAB TABLET PO PRN (23:40)
[2019-10-10] VITALS: BP 142/51
[2019-10-10 04:00] VITALS: BP 95/46
[2019-10-10] MEDS: DIPHENHYDRAMINE 50MG/ML VIAL IV PRN ×4 (05:13→20:11)
[2019-10-10 06:13] LABS: BASOPHILS % 0.9 % (0.0-2.0); EOSINOPHILS % 3.3 % (0.0-5.0); HEMATOCRIT. 34.4 % (36.0-48.0); HEMOGLOBIN. 11.3 g/dL (12.0-16.0); LYMPHOCYTES % 22.6 % (20.0-50.0); MEAN CORPUSCULAR HEMOGLOBIN 28.6 pg (28.0-32.0); MEAN PLATELET VOLUME 8.7 fl (7.4-10.4); MONOCYTES % 12.3 % (2.0-8.0); NEUTROPHILS % 60.9 % (40.0-76.0); PLATELET 166 x1000/uL (130-400); RED BLOOD CELL COUNT 3.96 mill/uL (4.2-5.4); RED CELL DISTRIBUTION WIDTH 19.3 % (11.6-14.6)
[2019-10-10 08:00] VITALS: BP 100/52
[2019-10-10] MEDS: ASPIRIN 81MG TABLET PO SCH (08:39)
[2019-10-10] MEDS: CINACALCET HCL 60MG TABLET PO SCH (08:39)
[2019-10-10] MEDS: CALCIUM ACETATE 667MG CAPSULE PO SCH ×3 (08:39→17:56)
[2019-10-10] MEDS: FOLIC ACID/VITAMIN B COMP W-C TABLET PO SCH (08:39)
[2019-10-10] MEDS: LEVOTHYROXINE SODIUM 75MCG TABLET PO SCH (08:39)
[2019-10-10] MEDS: FAMOTIDINE 20MG TABLET PO SCH (08:42)
[2019-10-10 12:00] VITALS: BP 148/52
[2019-10-10] MEDS: HYDROCODONE/APAP 7.5/325MG 1 TAB TABLET PO PRN (13:32)
[2019-10-10 16:00] VITALS: BP 109/61
[2019-10-10 20:00] VITALS: BP 113/45
[2019-10-10] MEDS: ATORVASTATIN CALCIUM 20MG TABLET PO SCH (20:10)
[2019-10-11] VITALS: BP 95/48
[2019-10-11] MEDS: DIPHENHYDRAMINE 50MG/ML VIAL IV PRN ×5 (03:14→17:39)
[2019-10-11 04:00] VITALS: BP 101/46
[2019-10-11 08:00] VITALS: BP 98/66
[2019-10-11] MEDS: FOLIC ACID/VITAMIN B COMP W-C TABLET PO SCH (08:12)
[2019-10-11] MEDS: FAMOTIDINE 20MG TABLET PO SCH (08:12)
[2019-10-11] MEDS: ASPIRIN 81MG TABLET PO SCH (08:12)
[2019-10-11] MEDS: CINACALCET HCL 60MG TABLET PO SCH (08:12)
[2019-10-11] MEDS: LEVOTHYROXINE SODIUM 75MCG TABLET PO SCH (08:23)
[2019-10-11] MEDS: CALCIUM ACETATE 667MG CAPSULE PO SCH ×2 (08:31→13:19)
[2019-10-11 16:00] VITALS: BP 107/73
[2019-10-11] MEDS: CALCIUM ACETATE 667 MG TABLET PO SCH (18:58)
[2019-10-11 20:00] VITALS: BP 98/61
[2019-10-11] MEDS: ATORVASTATIN CALCIUM 20MG TABLET PO SCH (20:37)
[2019-10-12] VITALS: BP 109/72
[2019-10-12 04:00] VITALS: BP 98/67
[2019-10-12] MEDS: FAMOTIDINE 20MG TABLET PO SCH (06:21)
[2019-10-12] MEDS: LEVOTHYROXINE SODIUM 75MCG TABLET PO SCH (06:22)
[2019-10-12 08:00] VITALS: BP 79/51
[2019-10-12] MEDS: CALCIUM ACETATE 667 MG TABLET PO SCH ×3 (09:38→17:47)
[2019-10-12] MEDS: CINACALCET HCL 60MG TABLET PO SCH (09:39)
[2019-10-12] MEDS: FOLIC ACID/VITAMIN B COMP W-C TABLET PO SCH (09:39)
[2019-10-12] MEDS: ASPIRIN 81MG TABLET PO SCH (09:39)
[2019-10-12 12:00] VITALS: BP 98/61
[2019-10-12 16:00] VITALS: BP 96/63
[2019-10-12] MEDS: DIPHENHYDRAMINE 50MG/ML VIAL IV PRN ×2 (17:39→21:53)
[2019-10-12 20:00] VITALS: BP 100/53
[2019-10-12] MEDS: ATORVASTATIN CALCIUM 20MG TABLET PO SCH (21:05)
[2019-10-13] VITALS: BP 110/75
[2019-10-13] MEDS: DIPHENHYDRAMINE 50MG/ML VIAL IV PRN ×3 (02:08→20:11)
[2019-10-13 04:00] VITALS: BP 98/50
[2019-10-13] MEDS: FAMOTIDINE 20MG TABLET PO SCH (06:49)
[2019-10-13] MEDS: LEVOTHYROXINE SODIUM 75MCG TABLET PO SCH (06:49)
[2019-10-13] MEDS: CALCIUM ACETATE 667 MG TABLET PO SCH ×3 (07:50→17:35)
[2019-10-13 08:00] VITALS: BP 110/69
[2019-10-13] MEDS: CINACALCET HCL 60MG TABLET PO SCH (09:06)
[2019-10-13] MEDS: FOLIC ACID/VITAMIN B COMP W-C TABLET PO SCH (09:06)
[2019-10-13] MEDS: ASPIRIN 81MG TABLET PO SCH (09:07)
[2019-10-13 09:42] LABS: HEMATOCRIT. 33.7 % (36.0-48.0); HEMOGLOBIN. 11.2 g/dL (12.0-16.0); LYMPHOCYTES % 21.4 % (20.0-50.0); MEAN CORPUSCULAR HEMOGLOBIN 28.5 pg (28.0-32.0); MEAN CORPUSCULAR VOLUME 86.3 fL (81.0-99.0); MEAN PLATELET VOLUME 8.4 fl (7.4-10.4); MONOCYTES % 12.6 % (2.0-8.0); PLATELET 167 x1000/uL (130-400); RED BLOOD CELL COUNT 3.91 mill/uL (4.2-5.4); RED CELL DISTRIBUTION WIDTH 19.1 % (11.6-14.6)
[2019-10-13 12:00] VITALS: BP 104/68
[2019-10-13 16:00] VITALS: BP 106/81
[2019-10-13] MEDS: CALCIUM CARBONATE 1250MG TABLET (500MG ELEMENTAL CALCIUM) PO SCH (17:35)
[2019-10-13 20:00] VITALS: BP 101/64
[2019-10-13] MEDS: ATORVASTATIN CALCIUM 20MG TABLET PO SCH (20:10)
[2019-10-13] MEDS ORDERED: EPOETIN ALFA 4000UNITS/ML VIAL SUBCUT SCH (21:00)
[2019-10-13] MEDS: HYDROCODONE/APAP 7.5/325MG 1 TAB TABLET PO PRN (23:01)
[2019-10-14] VITALS: BP 140/68
[2019-10-14 04:00] VITALS: BP 98/59
[2019-10-14] MEDS: FAMOTIDINE 20MG TABLET PO SCH (06:36)
[2019-10-14] MEDS: LEVOTHYROXINE SODIUM 75MCG TABLET PO SCH (06:36)
[2019-10-14 08:00] VITALS: BP 93/61
[2019-10-14] MEDS: CALCIUM CARBONATE 1250MG TABLET (500MG ELEMENTAL CALCIUM) PO SCH ×2 (09:02→16:48)
[2019-10-14] MEDS: CINACALCET HCL 60MG TABLET PO SCH (09:02)
[2019-10-14] MEDS: CALCIUM ACETATE 667 MG TABLET PO SCH ×3 (09:03→17:50)
[2019-10-14] MEDS: FOLIC ACID/VITAMIN B COMP W-C TABLET PO SCH (09:03)
[2019-10-14] MEDS: ASPIRIN 81MG TABLET PO SCH (09:03)
[2019-10-14 09:13] LABS: CHLORIDE 102 mEq/L (98-107)
[2019-10-14 09:19] LABS: PHOSPHORUS 4.8 mg/dL (2.5-4.9)
[2019-10-14] MEDS: DIPHENHYDRAMINE 50MG/ML VIAL IV PRN ×2 (10:59→22:30)
[2019-10-14 12:00] VITALS: BP 115/69
[2019-10-14 16:00] VITALS: BP 101/65
[2019-10-14 20:00] VITALS: BP 110/66
[2019-10-14] MEDS: ATORVASTATIN CALCIUM 20MG TABLET PO SCH (21:08)
[2019-10-14] MEDS: HYDROCODONE/APAP 7.5/325MG 1 TAB TABLET PO PRN (22:24)
[2019-10-15] VITALS (9 sets, daily range): BP systolic 91–139; BP diastolic 47–70
[2019-10-15] MEDS: LEVOTHYROXINE SODIUM 75MCG TABLET PO SCH (06:21)
[2019-10-15] MEDS: FAMOTIDINE 20MG TABLET PO SCH (06:21)
[2019-10-15 06:38] LABS: BASOPHILS % 0.9 % (0.0-2.0); EOSINOPHILS % 3.1 % (0.0-5.0); HEMATOCRIT. 36.7 % (36.0-48.0); HEMOGLOBIN. 11.7 g/dL (12.0-16.0); LYMPHOCYTES % 21.1 % (20.0-50.0); MEAN CORPUSCULAR HEMOGLOBIN 28.1 pg (28.0-32.0); MEAN CORPUSCULAR VOLUME 87.9 fL (81.0-99.0); MEAN PLATELET VOLUME 8.6 fl (7.4-10.4); MONOCYTES % 12.5 % (2.0-8.0); NEUTROPHILS % 62.4 % (40.0-76.0); PLATELET 163 x1000/uL (130-400); RED BLOOD CELL COUNT 4.18 mill/uL (4.2-5.4); RED CELL DISTRIBUTION WIDTH 19.2 % (11.6-14.6)
[2019-10-15] MEDS: CALCIUM ACETATE 667 MG TABLET PO SCH ×3 (07:50→17:20)
[2019-10-15] MEDS: DIPHENHYDRAMINE 50MG/ML VIAL IV PRN ×2 (09:07→13:38)
[2019-10-15] MEDS: CINACALCET HCL 60MG TABLET PO SCH (09:07)
[2019-10-15] MEDS: ASPIRIN 81MG TABLET PO SCH (09:07)
[2019-10-15] MEDS: CALCIUM CARBONATE 1250MG TABLET (500MG ELEMENTAL CALCIUM) PO SCH ×2 (09:07→17:20)
[2019-10-15] MEDS: FOLIC ACID/VITAMIN B COMP W-C TABLET PO SCH (09:07)
[2019-10-15] MEDS ORDERED: HEPARIN SODIUM 1,000 UNIT/1ML VIAL IV ONE (12:30)
[2019-10-15] MEDS: HYDROCODONE/APAP 7.5/325MG 1 TAB TABLET PO PRN (18:28)
== END 2019-10-15 20:12 | DRG 551 ==
LOC: ER 21:17 → 7WST 10-01 13:53 → ENRESERV 10-01 16:03 → 6EST 10-11 13:34
PROVIDERS: ADMIT Internal Medicine; ATTEND Internal Medicine
PROC: 5A1D70Z Performance of Urinary Filtration, Intermittent, Less than 6 Hours Per Day (ICD-10-PCS; principal; 2019-10-01)
PROC: 5A1D70Z Performance of Urinary Filtration, Intermittent, Less than 6 Hours Per Day (ICD-10-PCS; 2019-10-03)
PROC: 5A1D70Z Performance of Urinary Filtration, Intermittent, Less than 6 Hours Per Day (ICD-10-PCS; 2019-10-06)
PROC: 5A1D70Z Performance of Urinary Filtration, Intermittent, Less than 6 Hours Per Day (ICD-10-PCS; 2019-10-08)
PROC: 5A1D70Z Performance of Urinary Filtration, Intermittent, Less than 6 Hours Per Day (ICD-10-PCS; 2019-10-10)
PROC: 5A1D70Z Performance of Urinary Filtration, Intermittent, Less than 6 Hours Per Day (ICD-10-PCS; 2019-10-13)
PROC: 5A1D70Z Performance of Urinary Filtration, Intermittent, Less than 6 Hours Per Day (ICD-10-PCS; 2019-10-15)
DX: M47.817 Spondylosis without myelopathy or radiculopathy, lumbosacral region (principal); N18.6 End stage renal disease; I13.2 Hypertensive heart and chronic kidney disease with heart failure and with stage 5 chronic kidney disease, or end stage renal disease; I50.20 Unspecified systolic (congestive) heart failure; N25.81 Secondary hyperparathyroidism of renal origin; I82.511 Chronic embolism and thrombosis of right femoral vein; Z99.2 Dependence on renal dialysis; E83.41 Hypermagnesemia; R74.0 Nonspecific elevation of levels of transaminase and lactic acid dehydrogenase [LDH]; R62.7 Adult failure to thrive; D63.1 Anemia in chronic kidney disease; M47.812 Spondylosis without myelopathy or radiculopathy, cervical region; E03.9 Hypothyroidism, unspecified; R29.6 Repeated falls; G89.29 Other chronic pain; E83.51 Hypocalcemia; I95.9 Hypotension, unspecified; E78.5 Hyperlipidemia, unspecified; E11.22 Type 2 diabetes mellitus with diabetic chronic kidney disease; F17.200 Nicotine dependence, unspecified, uncomplicated; J44.9 Chronic obstructive pulmonary disease, unspecified; I25.10 Atherosclerotic heart disease of native coronary artery without angina pectoris; Z95.828 Presence of other vascular implants and grafts; Z88.2 Allergy status to sulfonamides; Z79.899 Other long term (current) drug therapy; Z68.21 Body mass index [BMI] 21.0-21.9, adult; Z95.810 Presence of automatic (implantable) cardiac defibrillator; Q78.9 Osteochondrodysplasia, unspecified
CPT/HCPCS: 36415; 71045; 72040; 72070; 72100; 72128; 72131; 76700; 80048; 80053; 80061; 82962; 83735; 83970; 84100; 84443; 85025; 93005; 93970; 96374; 97110; 97116; 97162; 99285; C1893; J1200; J1644; J1885; J2270

== ENCOUNTER 2020-01-27 21:33 | Inpatient (IN) | payer MEDICARE, MEDICAID ==
[~2020-01-27] VITALS: Ht 165.1 cm; Wt 50.3 kg
[2020-01-27 23:31] LABS: CHLORIDE 102 mEq/L (98-107)
[2020-01-27 23:32] LABS: BASOPHILS % 1.3 % (0.0-2.0); EOSINOPHILS % 3.8 % (0.0-5.0); HEMATOCRIT. 37.9 % (36.0-48.0); MEAN CORPUSCULAR HEMOGLOBIN 28.4 pg (28.0-32.0); MEAN CORPUSCULAR VOLUME 89.7 fL (81.0-99.0); MEAN PLATELET VOLUME 8.5 fl (7.4-10.4); MONOCYTES % 7.8 % (2.0-8.0); NEUTROPHILS % 63.1 % (40.0-76.0); PLATELET 143 x1000/uL (130-400); RED BLOOD CELL COUNT 4.22 mill/uL (4.2-5.4); RED CELL DISTRIBUTION WIDTH 19.8 % (11.6-14.6)
[2020-01-27] MEDS ORDERED: MORPHINE SULFATE 2 MG/ML CPJ (NOT FOR IM USE) IV ONE (23:45)
[2020-01-28] MEDS ORDERED: SODIUM BICARBONATE 8.4% 1 MEQ/ML 50ML SYR IV SCH (00:15)
[2020-01-28] MEDS ORDERED: INSULIN REGULAR (HUMULIN R) 300UNITS/3ML IV SCH (00:15)
[2020-01-28] MEDS ORDERED: DEXTROSE 50% WATER 50ML SYRINGE IV SCH (00:15)
[2020-01-28] MEDS ORDERED: CALCIUM CHLORIDE 1GM/10ML SYR IV SCH (00:15)
[2020-01-28] MEDS ORDERED: CALCIUM CHLORIDE 1GM/10ML SYR IV ONE (00:30)
[2020-01-28] MEDS ORDERED: DIPHENHYDRAMINE 50MG/ML VIAL IV ONE (01:15)
[2020-01-28] MEDS ORDERED: MAGNESIUM/ALUMINUM HYDROXIDE/SIMETHICONE 30ML UDC PO PRN (01:45)
[2020-01-28] MEDS ORDERED: GUAIFENESIN 200MG/10ML SUGAR FREE UDC PO PRN (01:45)
[2020-01-28] MEDS ORDERED: CLONIDINE 0.1MG TABLET PO PRN (01:45)
[2020-01-28] MEDS ORDERED: ONDANSETRON HCL 4MG/2ML INJ IV PRN (01:45)
[2020-01-28] MEDS ORDERED: ENOXAPARIN 40MG/0.4ML SYR SUBCUT SCH (01:45)
[2020-01-28] MEDS ORDERED: ACETAMINOPHEN 325MG TABLET PO PRN (01:45)
[2020-01-28] MEDS ORDERED: DOCUSATE SODIUM 100MG CAPSULE PO PRN (01:45)
[2020-01-28] MEDS: ENOXAPARIN 30MG/0.3ML SYR SUBCUT SCH (10:00)
[2020-01-28] MEDS ORDERED: DEXTROSE 50% WATER 50ML SYRINGE IV PRN (10:30)
[2020-01-28 10:31] VITALS: BP 146/72
[2020-01-28] MEDS: AMLODIPINE 10MG TABLET PO SCH (10:52)
[2020-01-28] MEDS: OMEPRAZOLE 20MG CAPSULE EXTENDED RELEASE PO SCH (11:00)
[2020-01-28] MEDS ORDERED: ACETAMINOPHEN 325MG TABLET PO SCH (11:00)
[2020-01-28] MEDS: LEVOTHYROXINE SODIUM 125MCG TABLET PO SCH (11:00)
[2020-01-28] MEDS ORDERED: LACTULOSE 20G/30ML UDC PO PRN (11:00)
[2020-01-28] MEDS: DOCUSATE SODIUM 100MG CAPSULE PO SCH (11:00)
[2020-01-28] MEDS: RISPERIDONE 0.5MG TABLET PO SCH ×2 (11:11→20:27)
[2020-01-28] MEDS: CARVEDILOL 3.125 MG TABLET PO SCH ×2 (11:11→21:00)
[2020-01-28] MEDS: CALCITRIOL 0.25MCG CAPSULE PO SCH (11:11)
[2020-01-28] MEDS: FOLIC ACID 1MG TABLET PO SCH (11:11)
[2020-01-28] MEDS: METHOCARBAMOL 750MG TABLET PO SCH ×2 (11:11→20:27)
[2020-01-28] MEDS: GABAPENTIN 300MG CAPSULE PO SCH ×2 (11:13→21:26)
[2020-01-28 12:00] VITALS: BP 110/70
[2020-01-28] MEDS: INSULIN LISPRO 100 UNITS/ML SUBCUT SCH ×3 (12:01→21:00)
[2020-01-28] MEDS: BLOOD SUGAR DIAGNOSTIC STRIP TEST SCH ×3 (12:01→21:00)
[2020-01-28] MEDS: CINACALCET HCL 60MG TABLET PO SCH (16:01)
[2020-01-28 16:30] VITALS: BP 83/43
[2020-01-28] MEDS: SEVELAMER CARBONATE 800 MG TABLET PO SCH ×2 (17:32→17:43)
[2020-01-28] MEDS ORDERED: MIDODRINE HCL 5MG TABLET PO NR (17:36)
[2020-01-28] MEDS: HYDROCODONE/ACETAMINOPHEN 5/325MG TABLET PO PRN (18:11)
[2020-01-28 20:00] VITALS: BP 106/62
[2020-01-28] MEDS ORDERED: ZOLPIDEM TARTRATE 5MG TABLET PO PRN (21:00)
[2020-01-28] MEDS: ALBUTEROL 6.7GM HFA INHALER ORI PRN (22:31)
[2020-01-28] MEDS: DIPHENHYDRAMINE 50MG/ML VIAL IV PRN (23:10)
[2020-01-29] VITALS: BP 109/62
[2020-01-29 04:00] VITALS: BP 122/62
[2020-01-29] MEDS: OMEPRAZOLE 20MG CAPSULE EXTENDED RELEASE PO SCH (06:42)
[2020-01-29] MEDS: LEVOTHYROXINE SODIUM 125MCG TABLET PO SCH (06:42)
[2020-01-29] MEDS: BLOOD SUGAR DIAGNOSTIC STRIP TEST SCH ×4 (06:55→21:00)
[2020-01-29 08:00] VITALS: BP 93/38
[2020-01-29] MEDS: INSULIN LISPRO 100 UNITS/ML SUBCUT SCH ×4 (08:04→21:00)
[2020-01-29] MEDS: CARVEDILOL 3.125 MG TABLET PO SCH ×2 (09:00→21:00)
[2020-01-29] MEDS: AMLODIPINE 10MG TABLET PO SCH (09:00)
[2020-01-29] MEDS: DOCUSATE SODIUM 100MG CAPSULE PO SCH (10:06)
[2020-01-29] MEDS: METHOCARBAMOL 750MG TABLET PO SCH ×2 (10:06→21:17)
[2020-01-29] MEDS: RISPERIDONE 0.5MG TABLET PO SCH ×2 (10:06→21:17)
[2020-01-29] MEDS: CALCITRIOL 0.25MCG CAPSULE PO SCH (10:06)
[2020-01-29] MEDS: ASPIRIN 81MG EC TABLET PO SCH (10:06)
[2020-01-29] MEDS: FOLIC ACID 1MG TABLET PO SCH (10:09)
[2020-01-29] MEDS: SEVELAMER CARBONATE 800 MG TABLET PO SCH ×3 (10:16→17:05)
[2020-01-29] MEDS: GABAPENTIN 300MG CAPSULE PO SCH ×2 (10:16→21:15)
[2020-01-29] MEDS: ENOXAPARIN 30MG/0.3ML SYR SUBCUT SCH (10:17)
[2020-01-29] MEDS ORDERED: ALTEPLASE 2MG/VIAL ITC NR (11:00)
[2020-01-29 12:00] VITALS: BP 99/57
[2020-01-29 12:37] LABS: BG BASE EXCESS -8.1 mmol/L (-2.0-2.0); BG CARBOXYHEMOGLOBIN 0.2 % (0.5-1.5); BG FRACTION INSPIRED OXYGEN 32; BG HCO3 ACT 18.3 mmol/L (22.0-26.0); BG METHEMOGLOBIN 0.3 % (0.0-1.5); BG OXYHEMOGLOBIN 93.5 % (94.0-97.0); BG PH 7.267 (7.350-7.450); BG PO2 85.5 mmHg (75.0-100.0); BG SAMPLE SITE LEFT RADIAL; BG TOTAL HEMOGLOBIN 9.7 g/dL (12.0-18.0); BG VENT MODE NASAL CANNULA
[2020-01-29] MEDS ORDERED: ALBUMIN HUMAN 25GM/100ML (25%) IV NR (14:00)
[2020-01-29] MEDS: CINACALCET HCL 60MG TABLET PO SCH (16:30)
[2020-01-29 17:14] LABS: CHLORIDE 103 mEq/L (98-107)
[2020-01-29 17:15] LABS: BASOPHILS % 0.7 % (0.0-2.0); EOSINOPHILS % 3.2 % (0.0-5.0); HEMATOCRIT. 29.4 % (36.0-48.0); HEMOGLOBIN. 9.4 g/dL (12.0-16.0); LYMPHOCYTES % 15.3 % (20.0-50.0); MEAN CORPUSCULAR HEMOGLOBIN 28.3 pg (28.0-32.0); MEAN CORPUSCULAR VOLUME 88.6 fL (81.0-99.0); MEAN PLATELET VOLUME 8.5 fl (7.4-10.4); MONOCYTES % 8.4 % (2.0-8.0); NEUTROPHILS % 72.4 % (40.0-76.0); PLATELET 112 x1000/uL (130-400); RED BLOOD CELL COUNT 3.32 mill/uL (4.2-5.4); RED CELL DISTRIBUTION WIDTH 19.9 % (11.6-14.6)
[2020-01-29] MEDS ORDERED: SODIUM POLYSTYRENE SULFONATE 15 G/60 ML BOT PO SCH ×2 (18:00→18:30)
[2020-01-29] MEDS ORDERED: SODIUM POLYSTYRENE SULFONATE 15 G/60 ML BOT PO ONE (18:00)
[2020-01-29 18:23] VITALS: BP 127/67
[2020-01-29 20:00] VITALS: BP 98/38
[2020-01-29] MEDS: HYDROCODONE/ACETAMINOPHEN 5/325MG TABLET PO PRN (23:38)
[2020-01-29] MEDS: DIPHENHYDRAMINE 50MG/ML VIAL IV PRN (23:53)
[2020-01-30] VITALS: BP 107/66
[2020-01-30 04:00] VITALS: BP 140/82
[2020-01-30] MEDS: LEVOTHYROXINE SODIUM 125MCG TABLET PO SCH (05:46)
[2020-01-30] MEDS: INSULIN LISPRO 100 UNITS/ML SUBCUT SCH ×4 (06:03→20:56)
[2020-01-30] MEDS: BLOOD SUGAR DIAGNOSTIC STRIP TEST SCH ×4 (06:03→20:55)
[2020-01-30] MEDS: SEVELAMER CARBONATE 800 MG TABLET PO SCH ×3 (08:34→17:09)
[2020-01-30] MEDS: CALCITRIOL 0.25MCG CAPSULE PO SCH (08:34)
[2020-01-30] MEDS: ASPIRIN 81MG EC TABLET PO SCH (08:34)
[2020-01-30] MEDS: DOCUSATE SODIUM 100MG CAPSULE PO SCH (08:34)
[2020-01-30] MEDS: RISPERIDONE 0.5MG TABLET PO SCH ×2 (08:35→20:53)
[2020-01-30] MEDS: METHOCARBAMOL 750MG TABLET PO SCH ×2 (08:36→20:56)
[2020-01-30] MEDS: FOLIC ACID 1MG TABLET PO SCH (08:36)
[2020-01-30] MEDS: GABAPENTIN 300MG CAPSULE PO SCH ×2 (08:36→20:54)
[2020-01-30] MEDS: FAMOTIDINE 20MG TABLET PO SCH (08:36)
[2020-01-30] MEDS: AMLODIPINE 10MG TABLET PO SCH (08:37)
[2020-01-30] MEDS: CARVEDILOL 3.125 MG TABLET PO SCH ×2 (08:37→20:54)
[2020-01-30] MEDS: ENOXAPARIN 30MG/0.3ML SYR SUBCUT SCH (08:37)
[2020-01-30] MEDS ORDERED: VANCOMYCIN 1 G PREMIX 200 ML IV SCH (12:00)
[2020-01-30] MEDS: CINACALCET HCL 60MG TABLET PO SCH (17:00)
[2020-01-30 20:00] VITALS: BP 117/54
[2020-01-30] MEDS ORDERED: EPOETIN ALFA 4000UNITS/ML VIAL SUBCUT SCH (21:00)
[2020-01-31 00:09] VITALS: BP 138/63
[2020-01-31] MEDS: HYDROCODONE/ACETAMINOPHEN 5/325MG TABLET PO PRN ×2 (03:22→11:28)
[2020-01-31 03:35] VITALS: BP 120/44
[2020-01-31] MEDS: DIPHENHYDRAMINE 50MG/ML VIAL IV PRN (03:38)
[2020-01-31] MEDS: ALBUTEROL 6.7GM HFA INHALER ORI PRN ×2 (05:30→05:54)
[2020-01-31] MEDS: LEVOTHYROXINE SODIUM 125MCG TABLET PO SCH (06:20)
[2020-01-31] MEDS: BLOOD SUGAR DIAGNOSTIC STRIP TEST SCH ×3 (06:30→17:20)
[2020-01-31] MEDS: INSULIN LISPRO 100 UNITS/ML SUBCUT SCH ×3 (07:50→17:50)
[2020-01-31 08:00] VITALS: BP 134/66
[2020-01-31] MEDS: METHOCARBAMOL 750MG TABLET PO SCH (09:08)
[2020-01-31] MEDS: GABAPENTIN 300MG CAPSULE PO SCH (09:09)
[2020-01-31] MEDS: FOLIC ACID 1MG TABLET PO SCH (09:09)
[2020-01-31] MEDS: FAMOTIDINE 20MG TABLET PO SCH (09:09)
[2020-01-31] MEDS: RISPERIDONE 0.5MG TABLET PO SCH (09:09)
[2020-01-31] MEDS: SEVELAMER CARBONATE 800 MG TABLET PO SCH ×3 (09:09→17:57)
[2020-01-31] MEDS: ASPIRIN 81MG EC TABLET PO SCH (09:09)
[2020-01-31] MEDS: CALCITRIOL 0.25MCG CAPSULE PO SCH (09:09)
[2020-01-31] MEDS: AMLODIPINE 10MG TABLET PO SCH (09:09)
[2020-01-31] MEDS: DOCUSATE SODIUM 100MG CAPSULE PO SCH (09:09)
[2020-01-31] MEDS: CARVEDILOL 3.125 MG TABLET PO SCH (09:10)
[2020-01-31] MEDS: ENOXAPARIN 30MG/0.3ML SYR SUBCUT SCH (09:14)
[2020-01-31] MEDS: IPRATROPIUM/ALBUTEROL 0.5-3(2.5)MG/3ML NEB HHN SCH ×2 (09:30→15:25)
[2020-01-31 12:00] VITALS: BP 105/47
[2020-01-31 14:45] VITALS: BP 105/47
[2020-01-31] MEDS ORDERED: VANCOMYCIN 1,000 MG in DEXT 5% WATER 250 ML IV SCH (15:00)
[2020-01-31 16:00] VITALS: BP 110/51
[2020-01-31] MEDS: CINACALCET HCL 60MG TABLET PO SCH (17:57)
== END 2020-01-31 18:05 | disposition home or self-care (01) | DRG 291 ==
LOC: ER 21:33 → 7WST 01-28 00:08 → EDBEDREQDT 01-28 00:15 → EDBEDREQSVC 01-28 00:15 → EDBEDREQTM 01-28 00:15 → EDBEDREQ 01-28 00:15 → CANRESERV 01-28 04:57 → ENRESERV 01-28 04:57 → EDBEDREQSVC 01-28 07:22 → ENRESERV 01-28 07:50 → 6WST 01-29 18:06
PROVIDERS: ADMIT Hospitalist; ATTEND Hospitalist
PROC: 5A1D70Z Performance of Urinary Filtration, Intermittent, Less than 6 Hours Per Day (ICD-10-PCS; principal; 2020-01-28)
PROC: 5A1D70Z Performance of Urinary Filtration, Intermittent, Less than 6 Hours Per Day (ICD-10-PCS; 2020-01-30)
DX: I13.2 Hypertensive heart and chronic kidney disease with heart failure and with stage 5 chronic kidney disease, or end stage renal disease (principal); J96.01 Acute respiratory failure with hypoxia; I50.43 Acute on chronic combined systolic (congestive) and diastolic (congestive) heart failure; N18.6 End stage renal disease; J44.1 Chronic obstructive pulmonary disease with (acute) exacerbation; R78.81 Bacteremia; I42.9 Cardiomyopathy, unspecified; B19.20 Unspecified viral hepatitis C without hepatic coma; D64.9 Anemia, unspecified; E03.9 Hypothyroidism, unspecified; E11.22 Type 2 diabetes mellitus with diabetic chronic kidney disease; E21.3 Hyperparathyroidism, unspecified; E87.5 Hyperkalemia; F17.210 Nicotine dependence, cigarettes, uncomplicated; G89.29 Other chronic pain; M46.40 Discitis, unspecified, site unspecified; M81.0 Age-related osteoporosis without current pathological fracture; E11.42 Type 2 diabetes mellitus with diabetic polyneuropathy; M47.896 Other spondylosis, lumbar region; K76.9 Liver disease, unspecified; Z20.828 Contact with and (suspected) exposure to other viral communicable diseases; Z93.0 Tracheostomy status; Z88.8 Allergy status to other drugs, medicaments and biological substances; Z86.718 Personal history of other venous thrombosis and embolism; Z95.828 Presence of other vascular implants and grafts; Z99.2 Dependence on renal dialysis; Z88.1 Allergy status to other antibiotic agents; Z79.899 Other long term (current) drug therapy
CPT/HCPCS: 36415; 36600; 71045; 80048; 80053; 80202; 82375; 82805; 82962; 83036; 83880; 84484; 85025; 87077; 87635; 93005; 99291; J0885; J1200; J1650; J1815; J2270; J2997; J3370; J3490; J7060; P9047

== ENCOUNTER 2020-02-25 08:46 | Inpatient (IN) | payer MEDICARE, MEDICAID ==
[~2020-02-25] VITALS: Ht 167.6 cm; Wt 67.1 kg
[~2020-02-25 08:46] MED LIST changes: -MIDO5TAB4 MT
[2020-02-25] MEDS ORDERED: MORPHINE SULFATE 4 MG/ML CPJ (NOT FOR IM USE) IV STA (09:33)
[2020-02-25 10:37] LABS: HEMATOCRIT. 24.7 % (36.0-48.0); HEMOGLOBIN. 7.9 g/dL (12.0-16.0); MEAN CORPUSCULAR HEMOGLOBIN 28.6 pg (28.0-32.0); MEAN CORPUSCULAR VOLUME 88.9 fL (81.0-99.0); MEAN PLATELET VOLUME 8.4 fl (7.4-10.4); PLATELET 177 x1000/uL (130-400); RED BLOOD CELL COUNT 2.77 mill/uL (4.2-5.4); RED CELL DISTRIBUTION WIDTH 21.3 % (11.6-14.6)
[2020-02-25 10:44] LABS: CHLORIDE 105 mEq/L (98-107)
[2020-02-25 10:58] LABS: NUCLEATED RED BLOOD CELLS 2 /100 WBC; PLATELET ESTIMATE NORMAL
[2020-02-25] MEDS ORDERED: MORPHINE SULFATE 4 MG/ML CPJ (NOT FOR IM USE) IV ONE (12:00)
[2020-02-25] MEDS ORDERED: LORAZEPAM 2MG/ML CPJ IV PRN (13:00)
[2020-02-25] MEDS ORDERED: ACETAMINOPHEN 325MG TABLET PO PRN (13:00)
[2020-02-25] MEDS ORDERED: MAGNESIUM/ALUMINUM HYDROXIDE/SIMETHICONE 30ML UDC PO PRN (13:00)
[2020-02-25] MEDS ORDERED: DOCUSATE SODIUM 100MG CAPSULE PO PRN (13:00)
[2020-02-25] MEDS ORDERED: CLONIDINE 0.1MG TABLET PO PRN (13:00)
[2020-02-25] MEDS ORDERED: NA PHOS,M-B/NA PHOS,DI-BA ENEMA 118ML PR PRN (13:00)
[2020-02-25] MEDS ORDERED: HYDROCODONE/ACETAMINOPHEN 5/325MG TABLET PO PRN (13:00)
[2020-02-25] MEDS ORDERED: GUAIFENESIN 200MG/10ML SUGAR FREE UDC PO PRN (13:00)
[2020-02-25] MEDS: LOSARTAN POTASSIUM 25 MG TABLET PO SCH (16:18)
[2020-02-25] MEDS: CARVEDILOL 3.125 MG TABLET PO SCH (21:00)
[2020-02-25 21:08] LABS: PHOSPHORUS 7.2 mg/dL (2.5-4.9)
[2020-02-25] MEDS: MORPHINE SULFATE 2 MG/ML CPJ (NOT FOR IM USE) IV PRN (21:15)
[2020-02-25] MEDS: DIPHENHYDRAMINE 50MG/ML VIAL IV PRN (21:51)
[2020-02-26] VITALS (13 sets, daily range): BP systolic 73–114; BP diastolic 33–69
[2020-02-26] MEDS: MORPHINE SULFATE 2 MG/ML CPJ (NOT FOR IM USE) IV PRN ×2 (04:00→08:17)
[2020-02-26] MEDS: EPOETIN ALFA 4000UNITS/ML VIAL SUBCUT SCH (06:16)
[2020-02-26] MEDS: FOLIC ACID/VITAMIN B COMP W-C TABLET PO SCH (08:17)
[2020-02-26] MEDS: CARVEDILOL 3.125 MG TABLET PO SCH ×2 (09:00→20:56)
[2020-02-26] MEDS: LOSARTAN POTASSIUM 25 MG TABLET PO SCH (09:00)
[2020-02-26 11:16] LABS: BASOPHILS % 0.6 % (0.0-2.0); EOSINOPHILS % 0.7 % (0.0-5.0); LYMPHOCYTES % 16.7 % (20.0-50.0); MEAN CORPUSCULAR HEMOGLOBIN 29.8 pg (28.0-32.0); MEAN CORPUSCULAR VOLUME 89.4 fL (81.0-99.0); MEAN PLATELET VOLUME 8.3 fl (7.4-10.4); MONOCYTES % 14.7 % (2.0-8.0); NEUTROPHILS % 67.3 % (40.0-76.0); PLATELET 136 x1000/uL (130-400); RED CELL DISTRIBUTION WIDTH 21.7 % (11.6-14.6)
[2020-02-26 11:19] LABS: HEMATOCRIT. 14.3 % (36.0-48.0); HEMOGLOBIN. 4.8 g/dL (12.0-16.0)
[2020-02-26 11:25] LABS: CHLORIDE 110 mEq/L (98-107)
[2020-02-26 11:34] LABS: LDL CHOLESTEROL 32 mg/dL (5-100)
[2020-02-26 11:35] LABS: HDL CHOLESTEROL 34 mg/dL (40-59); T4 FREE 0.33 ng/dL (0.76-1.46)
[2020-02-26 12:40] LABS: MEAN CORPUSCULAR HEMOGLOBIN 29.4 pg (28.0-32.0); MEAN CORPUSCULAR VOLUME 89.5 fL (81.0-99.0); PLATELET 134 x1000/uL (130-400); RED BLOOD CELL COUNT 1.56 mill/uL (4.2-5.4); RED CELL DISTRIBUTION WIDTH 21.1 % (11.6-14.6)
[2020-02-26 12:59] LABS: HEMATOCRIT 13.9 % (36.0-48.0); HEMOGLOBIN 4.6 g/dL (12.0-16.0)
[2020-02-26] MEDS ORDERED: SODIUM BICARBONATE 4% (2.4MEQ) 5ML VIAL IV ONE (14:31)
[2020-02-26] MEDS ORDERED: LIDOCAINE HCL 1% 20ML VIAL (Pyxis) INJ ONE (14:31)
[2020-02-26] MEDS: BLOOD SUGAR DIAGNOSTIC STRIP TEST SCH (17:43)
[2020-02-26] MEDS: DEXTROSE 50% WATER 50ML SYRINGE IV PRN (17:50)
[2020-02-26] MEDS: SUCRALFATE 1G TABLET PO SCH (17:50)
[2020-02-26] MEDS: DEXT 5%/0.45% NACL 1000ML 1,000 ML IV SCH (18:48)
[2020-02-26] MEDS: PANTOPRAZOLE SODIUM 40 MG/VIAL IV SCH (20:57)
[2020-02-27] VITALS (35 sets, daily range): BP systolic 70–140; BP diastolic 26–86
[2020-02-27 04:18] LABS: HEMATOCRIT 20.6 % (36.0-48.0)
[2020-02-27] MEDS: SUCRALFATE 1G TABLET PO SCH ×4 (06:00→18:14)
[2020-02-27] MEDS ORDERED: ALBUMIN HUMAN 25GM/500ML (5%) IV SCH (06:00)
[2020-02-27] MEDS: BLOOD SUGAR DIAGNOSTIC STRIP TEST SCH ×4 (08:19→21:35)
[2020-02-27] MEDS: DEXTROSE 50% WATER 50ML SYRINGE IV PRN ×2 (08:25→12:12)
[2020-02-27] MEDS: PANTOPRAZOLE SODIUM 40 MG/VIAL IV SCH ×2 (08:25→20:23)
[2020-02-27] MEDS: CARVEDILOL 3.125 MG TABLET PO SCH ×2 (08:25→20:01)
[2020-02-27] MEDS: FOLIC ACID/VITAMIN B COMP W-C TABLET PO SCH (08:26)
[2020-02-27] MEDS: LOSARTAN POTASSIUM 25 MG TABLET PO SCH (08:26)
[2020-02-27 10:30] LABS: BASOPHILS % 0.4 % (0.0-2.0); EOSINOPHILS % 1.7 % (0.0-5.0); LYMPHOCYTES % 10.1 % (20.0-50.0); MEAN CORPUSCULAR HEMOGLOBIN 30.4 pg (28.0-32.0); MEAN CORPUSCULAR VOLUME 88.4 fL (81.0-99.0); MEAN PLATELET VOLUME 8.3 fl (7.4-10.4); MONOCYTES % 7.5 % (2.0-8.0); NEUTROPHILS % 80.3 % (40.0-76.0); PLATELET 110 x1000/uL (130-400); RED CELL DISTRIBUTION WIDTH 17.3 % (11.6-14.6)
[2020-02-27 10:43] LABS: HEMATOCRIT. 17.7 % (36.0-48.0); HEMOGLOBIN. 6.1 g/dL (12.0-16.0)
[2020-02-27 10:49] LABS: CHLORIDE 111 mEq/L (98-107)
[2020-02-27 10:57] LABS: GAMMA GLUTAMYL TRANSPEPTIDASE 94 IU/L (7-32)
[2020-02-27 11:08] LABS: FOLIC ACID (FOLATE) SERUM >20 ng/mL ng/mL (>5.38)
[2020-02-27 11:19] LABS: VITAMIN B12 SERUM 1278 pg/mL (211-911)
[2020-02-27 13:12] LABS: HEPATITIS B SURFACE AB 165.5 mIU/mL
[2020-02-27] MEDS ORDERED: ALBUMIN HUMAN 25GM/500ML (5%) IV PRN (13:30)
[2020-02-27] MEDS: DOPAMINE HCL 400 MG in DEXT 5% WATER 240 ML IV SCH (14:36)
[2020-02-27] MEDS: DEXT 5%/0.45% NACL 1000ML 1,000 ML IV SCH (18:14)
[2020-02-27] MEDS ORDERED: ALBUMIN HUMAN 25GM/100ML (25%) IV NR (20:00)
[2020-02-27] MEDS: EPOETIN ALFA 4000UNITS/ML VIAL SUBCUT SCH (20:23)
[2020-02-27 20:49] LABS: INR 1.2; PROTHROMBIN TIME 12.9 sec (9.6-11.0)
[2020-02-27] MEDS ORDERED: ALTEPLASE 2MG/VIAL ITC NR (22:30)
[2020-02-27 23:14] LABS: HEMATOCRIT 27.8 % (36.0-48.0); HEMOGLOBIN 9.6 g/dL (12.0-16.0)
[2020-02-28] VITALS (49 sets, daily range): BP systolic 49–122; BP diastolic 18–80
[2020-02-28 05:54] LABS: MEAN CORPUSCULAR HEMOGLOBIN 30.1 pg (28.0-32.0); MEAN CORPUSCULAR VOLUME 88.7 fL (81.0-99.0); MEAN PLATELET VOLUME 8.6 fl (7.4-10.4); PLATELET 81 x1000/uL (130-400); RED BLOOD CELL COUNT 2.34 mill/uL (4.2-5.4); RED CELL DISTRIBUTION WIDTH 17.7 % (11.6-14.6)
[2020-02-28 06:11] LABS: HEMATOCRIT. 20.7 % (36.0-48.0)
[2020-02-28] MEDS: BLOOD SUGAR DIAGNOSTIC STRIP TEST SCH ×4 (07:52→21:00)
[2020-02-28] MEDS: KCL 20MEQ/100ML PREMIX 100 ML IV SCH ×2 (07:53→15:34)
[2020-02-28] MEDS: PANTOPRAZOLE SODIUM 40 MG/VIAL IV SCH ×2 (08:05→22:14)
[2020-02-28] MEDS: CARVEDILOL 3.125 MG TABLET PO SCH ×2 (08:05→21:00)
[2020-02-28] MEDS: LOSARTAN POTASSIUM 25 MG TABLET PO SCH (08:07)
[2020-02-28] MEDS: FOLIC ACID/VITAMIN B COMP W-C TABLET PO SCH (08:11)
[2020-02-28 10:21] LABS: PLATELET ESTIMATE DECREASED
[2020-02-28] MEDS: SUCRALFATE 1G TABLET PO SCH ×3 (12:38→17:47)
[2020-02-28] MEDS: DEXTROSE 50% WATER 50ML SYRINGE IV PRN ×2 (13:00→17:53)
[2020-02-28 14:21] LABS: HEPATITIS B SURFACE ANTIGEN NEGATIVE
[2020-02-28] MEDS: DOPAMINE HCL 400 MG in DEXT 5% WATER 240 ML IV SCH (14:27)
[2020-02-28] MEDS: DEXT 5%/0.45% NACL 1000ML 1,000 ML IV SCH (17:47)
[2020-02-28 20:10] LABS: HEMATOCRIT 34.4 % (36.0-48.0); HEMOGLOBIN 11.7 g/dL (12.0-16.0)
[2020-02-28 23:13] LABS: HEMATOCRIT 27.9 % (36.0-48.0); HEMOGLOBIN 9.6 g/dL (12.0-16.0)
[2020-02-29] VITALS (29 sets, daily range): BP systolic 42–135; BP diastolic 22–83
[2020-02-29] MEDS: SUCRALFATE 1G TABLET PO SCH ×4 (05:32→18:41)
[2020-02-29] MEDS: BLOOD SUGAR DIAGNOSTIC STRIP TEST SCH ×4 (07:30→21:00)
[2020-02-29] MEDS: PANTOPRAZOLE SODIUM 40 MG/VIAL IV SCH ×2 (08:07→21:43)
[2020-02-29] MEDS: FOLIC ACID/VITAMIN B COMP W-C TABLET PO SCH (08:07)
[2020-02-29 08:08] LABS: HEMATOCRIT 32.8 % (36.0-48.0); HEMOGLOBIN 11.3 g/dL (12.0-16.0)
[2020-02-29] MEDS: CARVEDILOL 3.125 MG TABLET PO SCH ×2 (09:00→21:00)
[2020-02-29] MEDS: LOSARTAN POTASSIUM 25 MG TABLET PO SCH (09:00)
[2020-02-29] MEDS: DEXTROSE 50% WATER 50ML SYRINGE IV PRN ×3 (12:46→22:03)
[2020-02-29] MEDS: DOPAMINE HCL 400 MG in DEXT 5% WATER 240 ML IV SCH (13:46)
[2020-02-29] MEDS: DEXT 5%/0.45% NACL 1000ML 1,000 ML IV SCH (18:41)
[2020-02-29] MEDS: LEVOTHYROXINE SODIUM 150MCG TABLET PO SCH (18:41)
[2020-02-29] MEDS ORDERED: ALTEPLASE 2MG/VIAL ITC NR (20:30)
[2020-03-01] VITALS (18 sets, daily range): BP systolic 86–137; BP diastolic 35–77
[2020-03-01] MEDS: MORPHINE SULFATE 2 MG/ML CPJ (NOT FOR IM USE) IV PRN (05:17)
[2020-03-01] MEDS: SUCRALFATE 1G TABLET PO SCH ×4 (06:00→18:43)
[2020-03-01] MEDS: LEVOTHYROXINE SODIUM 150MCG TABLET PO SCH (07:30)
[2020-03-01] MEDS ORDERED: SODIUM BICARBONATE 4% (2.4MEQ) 5ML VIAL IV ONE (07:55)
[2020-03-01] MEDS ORDERED: LIDOCAINE HCL 1% 20ML VIAL (Pyxis) INJ ONE (07:55)
[2020-03-01] MEDS ORDERED: CEFAZOLIN 1000MG PREMIX 50 ML IV ONE ×2 (07:58→08:15)
[2020-03-01] MEDS: DEXTROSE 50% WATER 50ML SYRINGE IV PRN ×3 (07:58→18:43)
[2020-03-01] MEDS: BLOOD SUGAR DIAGNOSTIC STRIP TEST SCH ×4 (08:11→21:00)
[2020-03-01] MEDS: LOSARTAN POTASSIUM 25 MG TABLET PO SCH (09:00)
[2020-03-01] MEDS: FOLIC ACID/VITAMIN B COMP W-C TABLET PO SCH (09:00)
[2020-03-01] MEDS: CARVEDILOL 3.125 MG TABLET PO SCH ×2 (09:00→21:00)
[2020-03-01] MEDS ORDERED: IOHEXOL-300 50 ML BOTTLE IV ONE (09:04)
[2020-03-01] MEDS: PANTOPRAZOLE SODIUM 40 MG/VIAL IV SCH (10:35)
[2020-03-01 13:16] LABS: HEMATOCRIT. 30.3 % (36.0-48.0); MEAN CORPUSCULAR HEMOGLOBIN 29.8 pg (28.0-32.0); MEAN CORPUSCULAR VOLUME 89.9 fL (81.0-99.0); MEAN PLATELET VOLUME 9.3 fl (7.4-10.4); PLATELET 71 x1000/uL (130-400); RED BLOOD CELL COUNT 3.37 mill/uL (4.2-5.4); RED CELL DISTRIBUTION WIDTH 19.1 % (11.6-14.6)
[2020-03-01] MEDS ORDERED: ALBUMIN HUMAN 25GM/100ML (25%) IV NR (13:30)
[2020-03-01 14:35] LABS: PLATELET ESTIMATE NORMAL
[2020-03-01] MEDS: HYDROCODONE/ACETAMINOPHEN 5/325MG TABLET PO PRN (18:44)
[2020-03-01] MEDS: DEXT 5%/0.45% NACL 1000ML 1,000 ML IV SCH (18:50)
[2020-03-01] MEDS ORDERED: EPOETIN ALFA 4000UNITS/ML VIAL SUBCUT SCH (21:00)
[2020-03-02] VITALS (12 sets, daily range): BP systolic 93–110; BP diastolic 34–81
[2020-03-02] MEDS: DOPAMINE HCL 400 MG in DEXT 5% WATER 240 ML IV SCH ×2 (01:04→23:59)
[2020-03-02] MEDS: PANTOPRAZOLE SODIUM 40 MG/VIAL IV SCH ×3 (01:06→20:22)
[2020-03-02] MEDS: SUCRALFATE 1G TABLET PO SCH ×5 (06:00→20:23)
[2020-03-02] MEDS: LEVOTHYROXINE SODIUM 150MCG TABLET PO SCH (07:30)
[2020-03-02] MEDS: BLOOD SUGAR DIAGNOSTIC STRIP TEST SCH ×4 (08:25→21:00)
[2020-03-02] MEDS: CARVEDILOL 3.125 MG TABLET PO SCH ×2 (08:26→20:22)
[2020-03-02] MEDS: FOLIC ACID/VITAMIN B COMP W-C TABLET PO SCH (08:26)
[2020-03-02] MEDS: LOSARTAN POTASSIUM 25 MG TABLET PO SCH (08:26)
[2020-03-02 10:57] LABS: HEMATOCRIT. 31.9 % (36.0-48.0); HEMOGLOBIN. 10.3 g/dL (12.0-16.0); MEAN CORPUSCULAR HEMOGLOBIN 29.7 pg (28.0-32.0); MEAN CORPUSCULAR VOLUME 91.5 fL (81.0-99.0); MEAN PLATELET VOLUME 9.3 fl (7.4-10.4); PLATELET 69 x1000/uL (130-400); RED BLOOD CELL COUNT 3.48 mill/uL (4.2-5.4); RED CELL DISTRIBUTION WIDTH 20.8 % (11.6-14.6)
[2020-03-02 11:05] LABS: INR 1.2; PARTIAL THROMBOPLASTIN TIME 38.3 sec (23.4-31.0)
[2020-03-02 11:08] LABS: CHLORIDE 108 mEq/L (98-107)
[2020-03-02 11:20] LABS: PLATELET ESTIMATE DECREASED
[2020-03-02] MEDS ORDERED: MIDAZOLAM HCL 5 MG/5 ML VIAL ONE (11:23)
[2020-03-02] MEDS ORDERED: FENTANYL CITRATE/PF 50MCG/ML 2ML VIAL ONE (11:24)
[2020-03-02] MEDS ORDERED: MIDAZOLAM HCL 5 MG/5 ML VIAL IV ONE (11:27)
[2020-03-02] MEDS: HYDROCODONE/ACETAMINOPHEN 5/325MG TABLET PO PRN ×2 (14:01→19:14)
[2020-03-02 14:08] LABS: ANA IFA Negative (.)
[2020-03-02] MEDS: DIPHENHYDRAMINE 50MG/ML VIAL IV PRN ×2 (14:08→20:22)
[2020-03-02] MEDS ORDERED: ALBUMIN HUMAN 25GM/100ML (25%) IV NR (17:00)
[2020-03-02] MEDS ORDERED: ALBUMIN HUMAN 25GM/100ML (25%) IV PRN (17:00)
[2020-03-02] MEDS: DEXTROSE 50% WATER 50ML SYRINGE IV PRN ×2 (17:16→20:45)
[2020-03-02] MEDS: DEXT 5%/0.45% NACL 1000ML 1,000 ML IV SCH (17:26)
[2020-03-02] MEDS ORDERED: ALBUMIN HUMAN 12.5G/250ML (5%) IV NR (17:30)
[2020-03-02] MEDS: CINACALCET HCL 30MG TABLET PO SCH (18:13)
[2020-03-02] MEDS: CALCIUM ACETATE 667MG CAPSULE PO SCH (18:14)
[2020-03-03] VITALS (17 sets, daily range): BP systolic 88–155; BP diastolic 37–102
[2020-03-03] MEDS: DIPHENHYDRAMINE 50MG/ML VIAL IV PRN ×2 (03:53→18:00)
[2020-03-03] MEDS: HYDROCODONE/ACETAMINOPHEN 5/325MG TABLET PO PRN (03:55)
[2020-03-03 06:09] LABS: HEMATOCRIT. 33.7 % (36.0-48.0); MEAN CORPUSCULAR HEMOGLOBIN 30.3 pg (28.0-32.0); MEAN CORPUSCULAR VOLUME 92.2 fL (81.0-99.0); PLATELET 76 x1000/uL (130-400); RED BLOOD CELL COUNT 3.65 mill/uL (4.2-5.4); RED CELL DISTRIBUTION WIDTH 21.1 % (11.6-14.6)
[2020-03-03] MEDS: BLOOD SUGAR DIAGNOSTIC STRIP TEST SCH ×4 (07:30→21:00)
[2020-03-03] MEDS: PANTOPRAZOLE SODIUM 40 MG/VIAL IV SCH ×2 (08:24→21:50)
[2020-03-03] MEDS: LEVOTHYROXINE SODIUM 150MCG TABLET PO SCH (08:25)
[2020-03-03] MEDS: CALCIUM ACETATE 667MG CAPSULE PO SCH ×3 (08:25→18:00)
[2020-03-03] MEDS: CARVEDILOL 3.125 MG TABLET PO SCH ×2 (08:29→21:00)
[2020-03-03] MEDS: SUCRALFATE 1G TABLET PO SCH ×4 (08:29→21:00)
[2020-03-03] MEDS: CINACALCET HCL 30MG TABLET PO SCH (08:29)
[2020-03-03] MEDS: DEXTROSE 50% WATER 50ML SYRINGE IV PRN ×3 (08:29→18:00)
[2020-03-03] MEDS: FOLIC ACID/VITAMIN B COMP W-C TABLET PO SCH (08:29)
[2020-03-03] MEDS: LOSARTAN POTASSIUM 25 MG TABLET PO SCH (09:00)
[2020-03-03 09:14] LABS: PLATELET ESTIMATE DECREASED
[2020-03-03] MEDS ORDERED: LIDOCAINE HCL 1% 20ML VIAL (Pyxis) INJ ONE (12:46)
[2020-03-03] MEDS: DEXT 5%/0.45% NACL 1000ML 1,000 ML IV SCH (17:26)
[2020-03-03] MEDS: DOPAMINE HCL 400 MG in DEXT 5% WATER 240 ML IV SCH (22:24)
[2020-03-04] VITALS (16 sets, daily range): BP systolic 99–123; BP diastolic 30–89
[2020-03-04] MEDS: ONDANSETRON HCL 4MG/2ML INJ IV PRN ×3 (01:06→20:32)
[2020-03-04] MEDS: DIPHENHYDRAMINE 50MG/ML VIAL IV PRN ×4 (01:07→21:08)
[2020-03-04] MEDS: BLOOD SUGAR DIAGNOSTIC STRIP TEST SCH ×4 (07:44→20:52)
[2020-03-04] MEDS: LEVOTHYROXINE SODIUM 150MCG TABLET PO SCH (07:56)
[2020-03-04] MEDS: CALCIUM ACETATE 667MG CAPSULE PO SCH ×3 (07:57→17:02)
[2020-03-04] MEDS: SUCRALFATE 1G TABLET PO SCH ×4 (07:57→20:32)
[2020-03-04] MEDS: CARVEDILOL 3.125 MG TABLET PO SCH ×2 (08:16→20:32)
[2020-03-04] MEDS: PANTOPRAZOLE SODIUM 40 MG/VIAL IV SCH ×2 (08:16→20:31)
[2020-03-04] MEDS: FOLIC ACID/VITAMIN B COMP W-C TABLET PO SCH (08:16)
[2020-03-04] MEDS: CINACALCET HCL 30MG TABLET PO SCH (08:16)
[2020-03-04] MEDS: LOSARTAN POTASSIUM 25 MG TABLET PO SCH (09:00)
[2020-03-04 09:06] LABS: CHLORIDE 107 mEq/L (98-107)
[2020-03-04] MEDS: HYDROCODONE/ACETAMINOPHEN 5/325MG TABLET PO PRN ×2 (09:16→20:32)
[2020-03-04] MEDS ORDERED: MIDODRINE HCL 2.5MG TABLET PO SCH (10:00)
[2020-03-04] MEDS ORDERED: ALBUMIN HUMAN 12.5G/250ML (5%) IV NR (12:00)
[2020-03-04] MEDS ORDERED: LIDOCAINE HCL 1% 20ML VIAL (Pyxis) INJ ONE (13:58)
[2020-03-04] MEDS ORDERED: SODIUM BICARBONATE 4% (2.4MEQ) 5ML VIAL IV ONE (13:58)
[2020-03-04] MEDS ORDERED: IOHEXOL-300 50 ML BOTTLE IV ONE (13:58)
[2020-03-04] MEDS: MIDODRINE HCL 5MG TABLET PO SCH (17:03)
[2020-03-04] MEDS: DEXT 5%/0.45% NACL 1000ML 1,000 ML IV SCH (17:04)
[2020-03-04] MEDS: DOPAMINE HCL 400 MG in DEXT 5% WATER 240 ML IV SCH (18:17)
[2020-03-05] VITALS (12 sets, daily range): BP systolic 96–128; BP diastolic 41–101
[2020-03-05] MEDS: DIPHENHYDRAMINE 50MG/ML VIAL IV PRN ×3 (03:38→21:38)
[2020-03-05] MEDS: DEXTROSE 50% WATER 50ML SYRINGE IV PRN ×3 (08:04→22:12)
[2020-03-05] MEDS: CINACALCET HCL 30MG TABLET PO SCH (08:05)
[2020-03-05] MEDS: MIDODRINE HCL 5MG TABLET PO SCH ×3 (08:05→17:46)
[2020-03-05] MEDS: LEVOTHYROXINE SODIUM 150MCG TABLET PO SCH (08:05)
[2020-03-05] MEDS: PANTOPRAZOLE SODIUM 40 MG/VIAL IV SCH ×2 (08:05→21:38)
[2020-03-05] MEDS: FOLIC ACID/VITAMIN B COMP W-C TABLET PO SCH (08:05)
[2020-03-05] MEDS: SUCRALFATE 1G TABLET PO SCH ×4 (08:05→21:38)
[2020-03-05] MEDS: CALCIUM ACETATE 667MG CAPSULE PO SCH ×3 (08:06→17:44)
[2020-03-05] MEDS: LOSARTAN POTASSIUM 25 MG TABLET PO SCH (08:16)
[2020-03-05] MEDS: CARVEDILOL 3.125 MG TABLET PO SCH ×2 (08:16→21:38)
[2020-03-05] MEDS: BLOOD SUGAR DIAGNOSTIC STRIP TEST SCH ×4 (08:17→21:00)
[2020-03-05 09:05] LABS: HEMATOCRIT. 26.1 % (36.0-48.0); HEMOGLOBIN. 8.7 g/dL (12.0-16.0); MEAN CORPUSCULAR HEMOGLOBIN 30.6 pg (28.0-32.0); MEAN CORPUSCULAR VOLUME 91.9 fL (81.0-99.0); MEAN PLATELET VOLUME 8.8 fl (7.4-10.4); PLATELET 60 x1000/uL (130-400); RED BLOOD CELL COUNT 2.84 mill/uL (4.2-5.4); RED CELL DISTRIBUTION WIDTH 22.1 % (11.6-14.6)
[2020-03-05 12:07] LABS: PLATELET ESTIMATE MARKEDLY DECREASED
[2020-03-05] MEDS: HYDROCODONE/ACETAMINOPHEN 5/325MG TABLET PO PRN (12:30)
[2020-03-05] MEDS: ONDANSETRON HCL 4MG/2ML INJ IV PRN (14:03)
[2020-03-06] VITALS (8 sets, daily range): BP systolic 99–160; BP diastolic 38–116
[2020-03-06] MEDS: DIPHENHYDRAMINE 50MG/ML VIAL IV PRN ×3 (02:52→10:57)
[2020-03-06] MEDS: ONDANSETRON HCL 4MG/2ML INJ IV PRN ×2 (03:16→08:36)
[2020-03-06] MEDS: BLOOD SUGAR DIAGNOSTIC STRIP TEST SCH ×2 (05:53→12:04)
[2020-03-06] MEDS: DEXTROSE 50% WATER 50ML SYRINGE IV PRN (05:59)
[2020-03-06] MEDS: FOLIC ACID/VITAMIN B COMP W-C TABLET PO SCH (08:35)
[2020-03-06] MEDS: LEVOTHYROXINE SODIUM 150MCG TABLET PO SCH (08:36)
[2020-03-06] MEDS: CALCIUM ACETATE 667MG CAPSULE PO SCH ×2 (08:36→12:04)
[2020-03-06] MEDS: SUCRALFATE 1G TABLET PO SCH ×2 (08:36→12:05)
[2020-03-06] MEDS: PANTOPRAZOLE SODIUM 40 MG/VIAL IV SCH (08:36)
[2020-03-06] MEDS: CINACALCET HCL 30MG TABLET PO SCH (08:37)
[2020-03-06] MEDS: MIDODRINE HCL 5MG TABLET PO SCH ×2 (08:37→12:05)
[2020-03-06] MEDS: LOSARTAN POTASSIUM 25 MG TABLET PO SCH (08:38)
[2020-03-06] MEDS: CARVEDILOL 3.125 MG TABLET PO SCH (08:39)
[2020-03-06] MEDS: HYDROCODONE/ACETAMINOPHEN 5/325MG TABLET PO PRN (11:57)
== END 2020-03-06 16:39 | disposition home or self-care (01) | DRG 380 ==
LOC: ER 08:46 → ENRESERV 20:22 → 6WST 20:58 → 5EST 02-27 03:45
PROVIDERS: ADMIT Internal Medicine; ATTEND Internal Medicine
PROC: 5A1D70Z Performance of Urinary Filtration, Intermittent, Less than 6 Hours Per Day (ICD-10-PCS; 2020-02-25)
PROC: 02HV33Z Insertion of Infusion Device into Superior Vena Cava, Percutaneous Approach (ICD-10-PCS; 2020-02-26)
PROC: B548ZZA Ultrasonography of Superior Vena Cava, Guidance (ICD-10-PCS; 2020-02-26)
PROC: B518ZZA Fluoroscopy of Superior Vena Cava, Guidance (ICD-10-PCS; 2020-02-26)
PROC: 30233N1 Transfusion of Nonautologous Red Blood Cells into Peripheral Vein, Percutaneous Approach (ICD-10-PCS; 2020-02-26)
PROC: 5A1D70Z Performance of Urinary Filtration, Intermittent, Less than 6 Hours Per Day (ICD-10-PCS; 2020-02-27)
PROC: 5A1D70Z Performance of Urinary Filtration, Intermittent, Less than 6 Hours Per Day (ICD-10-PCS; 2020-02-29)
PROC: 0JPT3XZ Removal of Tunneled Vascular Access Device from Trunk Subcutaneous Tissue and Fascia, Percutaneous Approach (ICD-10-PCS; 2020-03-01)
PROC: 0JH63XZ Insertion of Tunneled Vascular Access Device into Chest Subcutaneous Tissue and Fascia, Percutaneous Approach (ICD-10-PCS; 2020-03-01)
PROC: 06PY33Z Removal of Infusion Device from Lower Vein, Percutaneous Approach (ICD-10-PCS; 2020-03-01)
PROC: 02H633Z Insertion of Infusion Device into Right Atrium, Percutaneous Approach (ICD-10-PCS; 2020-03-01)
PROC: B518ZZA Fluoroscopy of Superior Vena Cava, Guidance (ICD-10-PCS; 2020-03-01)
PROC: 5A1D70Z Performance of Urinary Filtration, Intermittent, Less than 6 Hours Per Day (ICD-10-PCS; 2020-03-01)
PROC: 0DB78ZX Excision of Stomach, Pylorus, Via Natural or Artificial Opening Endoscopic, Diagnostic (ICD-10-PCS; principal; 2020-03-02)
PROC: 5A1D70Z Performance of Urinary Filtration, Intermittent, Less than 6 Hours Per Day (ICD-10-PCS; 2020-03-03)
PROC: 5A1D70Z Performance of Urinary Filtration, Intermittent, Less than 6 Hours Per Day (ICD-10-PCS; 2020-03-04)
PROC: 05H633Z Insertion of Infusion Device into Left Subclavian Vein, Percutaneous Approach (ICD-10-PCS; 2020-03-05)
PROC: B517ZZA Fluoroscopy of Left Subclavian Vein, Guidance (ICD-10-PCS; 2020-03-05)
PROC: 5A1D70Z Performance of Urinary Filtration, Intermittent, Less than 6 Hours Per Day (ICD-10-PCS; 2020-03-05)
DX: K22.11 Ulcer of esophagus with bleeding (principal); N18.6 End stage renal disease; T82.41XA Breakdown (mechanical) of vascular dialysis catheter, initial encounter; I13.2 Hypertensive heart and chronic kidney disease with heart failure and with stage 5 chronic kidney disease, or end stage renal disease; N25.81 Secondary hyperparathyroidism of renal origin; I47.2 Ventricular tachycardia; E46 Unspecified protein-calorie malnutrition; D62 Acute posthemorrhagic anemia; L02.416 Cutaneous abscess of left lower limb; I85.00 Esophageal varices without bleeding; I42.0 Dilated cardiomyopathy; E87.5 Hyperkalemia; K25.4 Chronic or unspecified gastric ulcer with hemorrhage; K29.61 Other gastritis with bleeding; M54.40 Lumbago with sciatica, unspecified side; J44.9 Chronic obstructive pulmonary disease, unspecified; I50.9 Heart failure, unspecified; G89.29 Other chronic pain; G62.9 Polyneuropathy, unspecified; R94.4 Abnormal results of kidney function studies; E21.3 Hyperparathyroidism, unspecified; D63.1 Anemia in chronic kidney disease; B19.20 Unspecified viral hepatitis C without hepatic coma; M48.061 Spinal stenosis, lumbar region without neurogenic claudication; I44.7 Left bundle-branch block, unspecified; E03.9 Hypothyroidism, unspecified; I95.9 Hypotension, unspecified; E87.6 Hypokalemia; K29.80 Duodenitis without bleeding; N25.0 Renal osteodystrophy; K44.9 Diaphragmatic hernia without obstruction or gangrene; M47.27 Other spondylosis with radiculopathy, lumbosacral region; Z99.2 Dependence on renal dialysis; Z95.810 Presence of automatic (implantable) cardiac defibrillator; Z88.8 Allergy status to other drugs, medicaments and biological substances; Z88.1 Allergy status to other antibiotic agents; Z79.890 Hormone replacement therapy; Z79.82 Long term (current) use of aspirin; Z79.1 Long term (current) use of non-steroidal anti-inflammatories (NSAID); Z79.899 Other long term (current) drug therapy; Z68.23 Body mass index [BMI] 23.0-23.9, adult; I25.2 Old myocardial infarction; Z87.891 Personal history of nicotine dependence
CPT/HCPCS: 36415; 36558; 36573; 71045; 72131; 76700; 76881; 76937; 77001; 80048; 80053; 80061; 82270; 82607; 82728; 82746; 82962; 82977; 83540; 83550; 83735; 83880; 84100; 84439; 84443; 84484; 85014; 85018; 85025; 85027; 85651; 86256; 86677; 86706; 86803; 86850; 86900; 86920; 87070; 87077; 87186; 87340; 88305; 88312; 88313; 93005; 93306; 93970; 97110; 97162; 97166; 97530; 99285; C1725; C1750; C1769; C1892; C9113; J0690; J0885; J1200; J1265; J1642; J2060; J2250; J2270; J2405; J2997; J3010; J3480; J3490; J7060; P9016; P9021; P9041; P9047; Q9967

== ENCOUNTER 2020-08-25 22:54 | Inpatient (IN) | payer MEDICARE, MEDICAID ==
[~2020-08-25] VITALS: Ht 157.5 cm; Wt 56.2 kg
[~2020-08-25 22:54] MED LIST changes: -ASPI-1497 PO; -CALC0.253 PO; -CALC667T6 MT; -CARV3.1242 PO; -DOCU-150 PO; -FOLI-43 PO; +GABA-529 PO; -GABA-531 PO; +HYDR-4009 MT; -LEVO125T8 MT; -MAG-55 PO; +METO5TAB2 MT; -RISP0.5T19 MT; +RISP0.5T65 MT; +SUCR1ORA15 PO; -TOPUD PO; -ZOLP5TAB8 PO
[2020-08-26 01:16] LABS: HEMATOCRIT. 35.4 % (36.0-48.0); HEMOGLOBIN. 11.4 g/dL (12.0-16.0); MEAN CORPUSCULAR HEMOGLOBIN 30.9 pg (28.0-32.0); MEAN CORPUSCULAR VOLUME 95.7 fL (81.0-99.0); MEAN PLATELET VOLUME 8.7 fl (7.4-10.4); PLATELET 148 x1000/uL (130-400); RED BLOOD CELL COUNT 3.71 mill/uL (4.2-5.4); RED CELL DISTRIBUTION WIDTH 18.5 % (11.6-14.6)
[2020-08-26 01:22] LABS: CHLORIDE 106 mEq/L (98-107)
[2020-08-26 01:26] LABS: ETHANOL BLOOD < 10 mg/dL
[2020-08-26 02:16] LABS: ATYPICAL LYMPHOCYTES 2; PLATELET ESTIMATE NORMAL
[2020-08-26] MEDS ORDERED: ACETAMINOPHEN 500MG TABLET PO SCH (02:45)
[2020-08-26] MEDS ORDERED: ASPIRIN 325MG EC TABLET PO SCH (02:45)
[2020-08-26] MEDS ORDERED: HYDROCODONE/ACETAMINOPHEN 10/325MG TABLET PO PRN (05:45)
[2020-08-26] MEDS ORDERED: ONDANSETRON HCL 4MG/2ML INJ IV PRN (05:45)
[2020-08-26 06:00] VITALS: BP 104/69
[2020-08-26] MEDS ORDERED: DEXTROSE 50% WATER 50ML SYRINGE IV SCH (06:00)
[2020-08-26] MEDS ORDERED: LORAZEPAM 1MG TABLET PO PRN (06:00)
[2020-08-26] MEDS: GABAPENTIN 100MG CAPSULE PO SCH ×3 (06:30→21:10)
[2020-08-26] MEDS: LORAZEPAM 2MG/ML CPJ IV PRN (06:49)
[2020-08-26] MEDS: PANTOPRAZOLE 40MG DR TABLET PO SCH (07:06)
[2020-08-26] MEDS: SEVELAMER CARBONATE 800 MG TABLET PO SCH ×3 (07:50→18:38)
[2020-08-26 08:00] VITALS: BP 140/70
[2020-08-26] MEDS: THIAMINE HCL 100MG TABLET PO SCH ×2 (09:00→13:19)
[2020-08-26] MEDS: RISPERIDONE 0.5MG TABLET PO SCH ×2 (09:00→21:10)
[2020-08-26] MEDS: FOLIC ACID 1MG TABLET PO SCH ×2 (09:00→13:20)
[2020-08-26] MEDS: FOLIC ACID/VITAMIN B COMP W-C TABLET PO SCH ×2 (09:00→13:19)
[2020-08-26 12:00] VITALS: BP 146/74
[2020-08-26] MEDS ORDERED: DEXTROSE 50% WATER 50ML SYRINGE IV PRN (13:00)
[2020-08-26 13:33] LABS: CHLORIDE 109 mEq/L (98-107)
[2020-08-26 13:40] LABS: PHOSPHORUS 6.8 mg/dL (2.5-4.9)
[2020-08-26] MEDS: BLOOD SUGAR DIAGNOSTIC STRIP TEST SCH ×2 (18:17→20:36)
[2020-08-26] MEDS: ENOXAPARIN 30MG/0.3ML SYR SUBCUT SCH (18:38)
[2020-08-26] MEDS: CINACALCET HCL 30MG TABLET PO SCH (18:38)
[2020-08-26] MEDS: SUCRALFATE 1G TABLET PO SCH ×2 (18:38→21:10)
[2020-08-26 19:34] LABS: BASOPHILS % 0.7 % (0.0-2.0); EOSINOPHILS % 2.2 % (0.0-5.0); HEMATOCRIT. 31.7 % (36.0-48.0); HEMOGLOBIN. 10.3 g/dL (12.0-16.0); LYMPHOCYTES % 18.7 % (20.0-50.0); MEAN CORPUSCULAR HEMOGLOBIN 31.1 pg (28.0-32.0); MEAN CORPUSCULAR VOLUME 95.6 fL (81.0-99.0); MEAN PLATELET VOLUME 8.8 fl (7.4-10.4); MONOCYTES % 9.2 % (2.0-8.0); NEUTROPHILS % 69.2 % (40.0-76.0); PLATELET 126 x1000/uL (130-400); RED BLOOD CELL COUNT 3.32 mill/uL (4.2-5.4); RED CELL DISTRIBUTION WIDTH 18.2 % (11.6-14.6)
[2020-08-26 20:00] VITALS: BP 124/56
[2020-08-26] MEDS: CARVEDILOL 6.25 MG TABLET PO SCH (21:19)
[2020-08-27] VITALS: BP 139/70
[2020-08-27 04:00] VITALS: BP 134/90
[2020-08-27] MEDS: SUCRALFATE 1G TABLET PO SCH ×4 (06:23→21:11)
[2020-08-27] MEDS: GABAPENTIN 100MG CAPSULE PO SCH ×3 (06:23→22:08)
[2020-08-27] MEDS: PANTOPRAZOLE 40MG DR TABLET PO SCH (06:23)
[2020-08-27] MEDS: LEVOTHYROXINE SODIUM 50MCG TABLET PO SCH (06:24)
[2020-08-27 06:59] LABS: BASOPHILS % 1.1 % (0.0-2.0); HEMATOCRIT. 31.1 % (36.0-48.0); HEMOGLOBIN. 9.8 g/dL (12.0-16.0); LYMPHOCYTES % 19.2 % (20.0-50.0); MEAN CORPUSCULAR HEMOGLOBIN 30.2 pg (28.0-32.0); MEAN CORPUSCULAR VOLUME 95.8 fL (81.0-99.0); MEAN PLATELET VOLUME 9.2 fl (7.4-10.4); MONOCYTES % 9.6 % (2.0-8.0); NEUTROPHILS % 68.1 % (40.0-76.0); PLATELET 134 x1000/uL (130-400); RED BLOOD CELL COUNT 3.25 mill/uL (4.2-5.4); RED CELL DISTRIBUTION WIDTH 18.3 % (11.6-14.6)
[2020-08-27] MEDS: BLOOD SUGAR DIAGNOSTIC STRIP TEST SCH ×5 (07:20→23:53)
[2020-08-27 08:46] VITALS: BP 111/45
[2020-08-27] MEDS: LORAZEPAM 2MG/ML CPJ IV PRN (08:51)
[2020-08-27] MEDS: LOSARTAN POTASSIUM 25 MG TABLET PO SCH (09:00)
[2020-08-27] MEDS: CARVEDILOL 6.25 MG TABLET PO SCH ×2 (09:00→21:11)
[2020-08-27] MEDS: DIPHENHYDRAMINE 50MG/ML VIAL IV PRN ×2 (09:29→16:09)
[2020-08-27] MEDS: FOLIC ACID 1MG TABLET PO SCH (11:02)
[2020-08-27] MEDS: SEVELAMER CARBONATE 800 MG TABLET PO SCH ×3 (11:02→17:43)
[2020-08-27] MEDS: RISPERIDONE 0.5MG TABLET PO SCH ×2 (11:02→21:11)
[2020-08-27] MEDS: FOLIC ACID/VITAMIN B COMP W-C TABLET PO SCH (11:02)
[2020-08-27] MEDS: THIAMINE HCL 100MG TABLET PO SCH (11:02)
[2020-08-27] MEDS: ENOXAPARIN 30MG/0.3ML SYR SUBCUT SCH (11:03)
[2020-08-27 12:39] VITALS: BP 107/57
[2020-08-27 16:18] VITALS: BP 104/55
[2020-08-27] MEDS: CINACALCET HCL 30MG TABLET PO SCH (17:44)
[2020-08-27] MEDS: TRAMADOL 50MG TABLET PO PRN (17:44)
[2020-08-27 20:48] VITALS: BP 130/60
[2020-08-27] MEDS ORDERED: EPOETIN ALFA-EPBX 10,000 UNIT/ML VIAL SUBCUT SCH (21:00)
[2020-08-28] VITALS: BP 121/70
[2020-08-28] MEDS ORDERED: BLOOD SUGAR DIAGNOSTIC STRIP TEST SCH
[2020-08-28] MEDS: BLOOD SUGAR DIAGNOSTIC STRIP TEST SCH ×4 (03:36→16:00)
[2020-08-28 04:00] VITALS: BP 150/73
[2020-08-28] MEDS: GABAPENTIN 100MG CAPSULE PO SCH ×2 (06:16→14:01)
[2020-08-28 08:00] VITALS: BP 157/69
[2020-08-28] MEDS: FOLIC ACID/VITAMIN B COMP W-C TABLET PO SCH (08:59)
[2020-08-28] MEDS: LEVOTHYROXINE SODIUM 50MCG TABLET PO SCH (09:00)
[2020-08-28] MEDS: SEVELAMER CARBONATE 800 MG TABLET PO SCH ×2 (09:00→14:01)
[2020-08-28] MEDS: CARVEDILOL 6.25 MG TABLET PO SCH (09:00)
[2020-08-28] MEDS: SUCRALFATE 1G TABLET PO SCH ×3 (09:00→17:07)
[2020-08-28] MEDS: RISPERIDONE 0.5MG TABLET PO SCH (09:00)
[2020-08-28] MEDS: LOSARTAN POTASSIUM 25 MG TABLET PO SCH (09:00)
[2020-08-28] MEDS: PANTOPRAZOLE 40MG DR TABLET PO SCH (09:00)
[2020-08-28] MEDS: FOLIC ACID 1MG TABLET PO SCH (09:01)
[2020-08-28] MEDS: ENOXAPARIN 30MG/0.3ML SYR SUBCUT SCH (09:01)
[2020-08-28] MEDS: THIAMINE HCL 100MG TABLET PO SCH (09:03)
[2020-08-28] MEDS: TRAMADOL 50MG TABLET PO PRN (09:04)
[2020-08-28 09:23] LABS: BASOPHILS % 0.8 % (0.0-2.0); EOSINOPHILS % 1.3 % (0.0-5.0); HEMATOCRIT. 30.9 % (36.0-48.0); LYMPHOCYTES % 15.3 % (20.0-50.0); MEAN CORPUSCULAR VOLUME 95.7 fL (81.0-99.0); MEAN PLATELET VOLUME 8.5 fl (7.4-10.4); NEUTROPHILS % 76.6 % (40.0-76.0); PLATELET 124 x1000/uL (130-400); RED BLOOD CELL COUNT 3.23 mill/uL (4.2-5.4); RED CELL DISTRIBUTION WIDTH 18.2 % (11.6-14.6)
[2020-08-28 12:00] VITALS: BP 107/57
[2020-08-28] MEDS: DIPHENHYDRAMINE 50MG/ML VIAL IV PRN (12:49)
[2020-08-28 14:29] VITALS: BP 107/57
[2020-08-28 16:00] VITALS: BP 97/40
[2020-08-28] MEDS: CINACALCET HCL 30MG TABLET PO SCH (17:07)
== END 2020-08-28 18:00 | disposition home or self-care (01) | DRG 70 ==
LOC: ER 22:54 → 6WST 08-26 02:47 → ENRESERV 08-26 04:38
PROVIDERS: ADMIT Internal Medicine; ATTEND Internal Medicine
PROC: 5A1D70Z Performance of Urinary Filtration, Intermittent, Less than 6 Hours Per Day (ICD-10-PCS; principal; 2020-08-27)
DX: G93.41 Metabolic encephalopathy (principal); I50.23 Acute on chronic systolic (congestive) heart failure; N18.6 End stage renal disease; I42.9 Cardiomyopathy, unspecified; I85.00 Esophageal varices without bleeding; I82.509 Chronic embolism and thrombosis of unspecified deep veins of unspecified lower extremity; I13.2 Hypertensive heart and chronic kidney disease with heart failure and with stage 5 chronic kidney disease, or end stage renal disease; E11.649 Type 2 diabetes mellitus with hypoglycemia without coma; B19.20 Unspecified viral hepatitis C without hepatic coma; D63.1 Anemia in chronic kidney disease; E03.9 Hypothyroidism, unspecified; E83.39 Other disorders of phosphorus metabolism; F17.210 Nicotine dependence, cigarettes, uncomplicated; G89.29 Other chronic pain; M54.5 Low back pain; E11.22 Type 2 diabetes mellitus with diabetic chronic kidney disease; E11.42 Type 2 diabetes mellitus with diabetic polyneuropathy; J44.9 Chronic obstructive pulmonary disease, unspecified; K21.9 Gastro-esophageal reflux disease without esophagitis; Z87.11 Personal history of peptic ulcer disease; Z91.19 Patient's noncompliance with other medical treatment and regimen; Z95.810 Presence of automatic (implantable) cardiac defibrillator; Z99.2 Dependence on renal dialysis; Z88.2 Allergy status to sulfonamides; Z88.8 Allergy status to other drugs, medicaments and biological substances; Z91.15 Patient's noncompliance with renal dialysis; F10.10 Alcohol abuse, uncomplicated
CPT/HCPCS: 36415; 71045; 73120; 80048; 80053; 80320; 82947; 82962; 83036; 84100; 84443; 84484; 85025; 93005; 99291; J0885; J1200; J1650; J2060; J2405; G0480

== ENCOUNTER 2020-09-09 15:11 | Inpatient (IN) | payer MEDICARE, MEDICAID ==
[~2020-09-09] VITALS: Ht 157.5 cm; Wt 55.8 kg
[2020-09-09 17:02] LABS: MEAN CORPUSCULAR HEMOGLOBIN 32.4 pg (28.0-32.0); MEAN CORPUSCULAR VOLUME 92.2 fL (81.0-99.0); MEAN PLATELET VOLUME 8.4 fl (7.4-10.4); PLATELET 120 x1000/uL (130-400); RED BLOOD CELL COUNT 1.87 mill/uL (4.2-5.4); RED CELL DISTRIBUTION WIDTH 17.8 % (11.6-14.6)
[2020-09-09 17:05] LABS: HEMATOCRIT. 17.2 % (36.0-48.0); HEMOGLOBIN. 6.1 g/dL (12.0-16.0)
[2020-09-09 17:09] LABS: CHLORIDE 108 mEq/L (98-107)
[2020-09-09 17:12] LABS: INR 1.2; PROTHROMBIN TIME 12.5 sec (9.6-11.0)
[2020-09-09 17:35] LABS: NUCLEATED RED BLOOD CELLS 1 /100 WBC; PLATELET ESTIMATE DECREASED
[2020-09-09] MEDS ORDERED: SODIUM CHLORIDE 0.9% 1,000 ML IV ONE (20:30)
[2020-09-10] MEDS ORDERED: MORPHINE SULFATE 2 MG/ML CPJ (NOT FOR IM USE) IV PRN (01:30)
[2020-09-10] MEDS ORDERED: DEXT 5%/0.45% NACL KCL 20MEQ/L 1,000 ML IV SCH (02:00)
[2020-09-10] MEDS: ONDANSETRON HCL 4MG/2ML INJ IV PRN ×2 (02:00→10:03)
[2020-09-10] MEDS ORDERED: DIPHENHYDRAMINE 50MG/ML VIAL IV PRN (06:00)
[2020-09-10 11:50] LABS: BASOPHILS % 0.5 % (0.0-2.0); EOSINOPHILS % 1.9 % (0.0-5.0); HEMATOCRIT. 22.1 % (36.0-48.0); HEMOGLOBIN. 7.1 g/dL (12.0-16.0); LYMPHOCYTES % 20.3 % (20.0-50.0); MEAN CORPUSCULAR HEMOGLOBIN 30.2 pg (28.0-32.0); MEAN CORPUSCULAR VOLUME 93.8 fL (81.0-99.0); MEAN PLATELET VOLUME 8.6 fl (7.4-10.4); MONOCYTES % 9.1 % (2.0-8.0); NEUTROPHILS % 68.2 % (40.0-76.0); PLATELET 147 x1000/uL (130-400); RED BLOOD CELL COUNT 2.36 mill/uL (4.2-5.4); RED CELL DISTRIBUTION WIDTH 17.4 % (11.6-14.6)
[2020-09-10 12:05] LABS: TOTAL IRON BINDING CAPACITY 190 ug/dL (250-450)
[2020-09-10] MEDS: DIPHENHYDRAMINE 25MG CAPSULE PO PRN ×2 (15:53→20:56)
[2020-09-10] MEDS ORDERED: PANTOPRAZOLE SODIUM 40 MG/VIAL IV SCH (16:00)
[2020-09-10] MEDS: SUCRALFATE 1 G/10 ML UDC PO SCH ×2 (16:30→21:29)
[2020-09-11] VITALS (13 sets, daily range): BP systolic 88–145; BP diastolic 54–96
[2020-09-11 01:10] LABS: BASOPHILS % 0.5 % (0.0-2.0); EOSINOPHILS % 0.9 % (0.0-5.0); HEMATOCRIT. 22.7 % (36.0-48.0); HEMOGLOBIN. 7.8 g/dL (12.0-16.0); LYMPHOCYTES % 10.5 % (20.0-50.0); MEAN CORPUSCULAR VOLUME 89.7 fL (81.0-99.0); MEAN PLATELET VOLUME 8.5 fl (7.4-10.4); MONOCYTES % 7.9 % (2.0-8.0); NEUTROPHILS % 80.2 % (40.0-76.0); PLATELET 122 x1000/uL (130-400); RED BLOOD CELL COUNT 2.53 mill/uL (4.2-5.4); RED CELL DISTRIBUTION WIDTH 17.2 % (11.6-14.6)
[2020-09-11] MEDS: PANTOPRAZOLE SODIUM 40 MG/VIAL IV SCH ×3 (01:22→20:23)
[2020-09-11] MEDS: SUCRALFATE 1 G/10 ML UDC PO SCH ×5 (05:23→20:24)
[2020-09-11] MEDS: HYDROCODONE/ACETAMINOPHEN 10/325MG TABLET PO PRN ×2 (08:35→20:35)
[2020-09-11] MEDS ORDERED: MIDAZOLAM HCL 5 MG/5 ML VIAL ONE (10:45)
[2020-09-11] MEDS ORDERED: FENTANYL CITRATE/PF 50MCG/ML 2ML VIAL ONE (10:46)
[2020-09-11] MEDS ORDERED: MIDAZOLAM HCL 5 MG/5 ML VIAL IV PRN (10:52)
[2020-09-11] MEDS ORDERED: SORBITOL 70% SOLN 30ML PO NR ×2 (18:15→21:00)
[2020-09-12] VITALS (10 sets, daily range): BP systolic 99–126; BP diastolic 52–93
[2020-09-12] MEDS: SUCRALFATE 1 G/10 ML UDC PO SCH ×4 (06:14→20:36)
[2020-09-12 09:16] LABS: BASOPHILS % 0.5 % (0.0-2.0); EOSINOPHILS % 1.1 % (0.0-5.0); HEMATOCRIT. 22.4 % (36.0-48.0); HEMOGLOBIN. 7.4 g/dL (12.0-16.0); LYMPHOCYTES % 13.7 % (20.0-50.0); MEAN CORPUSCULAR HEMOGLOBIN 30.1 pg (28.0-32.0); MEAN CORPUSCULAR VOLUME 91.6 fL (81.0-99.0); MEAN PLATELET VOLUME 8.6 fl (7.4-10.4); MONOCYTES % 5.7 % (2.0-8.0); PLATELET 122 x1000/uL (130-400); RED BLOOD CELL COUNT 2.44 mill/uL (4.2-5.4)
[2020-09-12] MEDS: PANTOPRAZOLE SODIUM 40 MG/VIAL IV SCH ×2 (09:35→20:36)
[2020-09-12] MEDS ORDERED: MIDAZOLAM HCL 5 MG/5 ML VIAL IV PRN (13:35)
[2020-09-12] MEDS ORDERED: FENTANYL CITRATE/PF 50MCG/ML 2ML VIAL IV PRN (13:36)
[2020-09-12 13:38] LABS: INR 1.2; PROTHROMBIN TIME 12.4 sec (9.6-11.0)
[2020-09-12] MEDS ORDERED: DIAZEPAM 5 MG/ML 2ML CPJ IV PRN (13:39)
[2020-09-12] MEDS ORDERED: MIDAZOLAM HCL 5 MG/5 ML VIAL ONE (13:39)
[2020-09-12] MEDS ORDERED: SIMETHICONE 40 MG/0.6 ML 30ML ONE (13:39)
[2020-09-12] MEDS ORDERED: FENTANYL CITRATE/PF 50MCG/ML 2ML VIAL ONE (13:39)
[2020-09-12] MEDS ORDERED: DIAZEPAM 5 MG/ML 2ML CPJ ONE (13:41)
[2020-09-12] MEDS ORDERED: CARV6.2548 MT (17:28)
[2020-09-12] MEDS ORDERED: LOSA25TA26 MT (17:28)
[2020-09-12] MEDS: MESALAMINE 1000MG SUPPOSITORY PR SCH (20:36)
[2020-09-12] MEDS: MORPHINE SULFATE 2 MG/ML CPJ (NOT FOR IM USE) IV PRN (20:58)
[2020-09-13] VITALS (12 sets, daily range): BP systolic 102–150; BP diastolic 55–89
[2020-09-13] MEDS: SUCRALFATE 1 G/10 ML UDC PO SCH ×4 (06:35→21:00)
[2020-09-13] MEDS: PANTOPRAZOLE SODIUM 40 MG/VIAL IV SCH ×2 (08:37→21:00)
[2020-09-13 10:09] LABS: HEMATOCRIT 24.8 % (36.0-48.0); HEMOGLOBIN 8.2 g/dL (12.0-16.0); MEAN CORPUSCULAR HEMOGLOBIN 30.5 pg (28.0-32.0); MEAN CORPUSCULAR VOLUME 92.5 fL (81.0-99.0); PLATELET 119 x1000/uL (130-400); RED BLOOD CELL COUNT 2.69 mill/uL (4.2-5.4); RED CELL DISTRIBUTION WIDTH 17.9 % (11.6-14.6)
[2020-09-13] MEDS ORDERED: CLONIDINE 0.1MG TABLET PO PRN (13:45)
[2020-09-13] MEDS: HYDROCODONE/ACETAMINOPHEN 10/325MG TABLET PO PRN (16:16)
[2020-09-13] MEDS: MESALAMINE 1000MG SUPPOSITORY PR SCH (21:00)
[2020-09-13] MEDS: HYDROCORTISONE ACETATE 25MG SUPP PR SCH (21:00)
[2020-09-13] MEDS: EPOETIN ALFA-EPBX 10,000 UNIT/ML VIAL SUBCUT SCH (22:53)
[2020-09-14] VITALS (11 sets, daily range): BP systolic 105–141; BP diastolic 48–80
[2020-09-14] MEDS: SUCRALFATE 1 G/10 ML UDC PO SCH ×4 (07:23→22:06)
[2020-09-14] MEDS: PANTOPRAZOLE SODIUM 40 MG/VIAL IV SCH ×2 (09:14→21:00)
[2020-09-14] MEDS: HYDROCORTISONE ACETATE 25MG SUPP PR SCH ×3 (09:14→22:07)
[2020-09-14] MEDS: MICAFUNGIN 100 MG in SODIUM CHLORIDE 0.9% 100 ML IV SCH (12:57)
[2020-09-14] MEDS ORDERED: ZOLPIDEM TARTRATE 5MG TABLET PO PRN (20:00)
[2020-09-14] MEDS: MESALAMINE 1000MG SUPPOSITORY PR SCH (21:00)
[2020-09-14 21:32] LABS: BASOPHILS % 0.2 % (0.0-2.0); EOSINOPHILS % 0.5 % (0.0-5.0); HEMATOCRIT. 24.2 % (36.0-48.0); HEMOGLOBIN. 7.8 g/dL (12.0-16.0); MEAN CORPUSCULAR HEMOGLOBIN 29.8 pg (28.0-32.0); MEAN CORPUSCULAR VOLUME 92.7 fL (81.0-99.0); MEAN PLATELET VOLUME 8.5 fl (7.4-10.4); MONOCYTES % 7.5 % (2.0-8.0); NEUTROPHILS % 72.8 % (40.0-76.0); PLATELET 117 x1000/uL (130-400); RED BLOOD CELL COUNT 2.61 mill/uL (4.2-5.4)
[2020-09-14] MEDS: DIPHENHYDRAMINE 25MG CAPSULE PO PRN (22:07)
[2020-09-15] VITALS (21 sets, daily range): BP systolic 121–154; BP diastolic 68–86
[2020-09-15] MEDS: SUCRALFATE 1 G/10 ML UDC PO SCH ×4 (05:06→22:33)
[2020-09-15] MEDS: PANTOPRAZOLE SODIUM 40 MG/VIAL IV SCH ×3 (07:53→22:33)
[2020-09-15] MEDS: HYDROCORTISONE ACETATE 25MG SUPP PR SCH ×2 (07:53→21:00)
[2020-09-15] MEDS ORDERED: SODIUM BICARBONATE 4% (2.4MEQ) 5ML VIAL IV ONE (09:54)
[2020-09-15] MEDS ORDERED: HEPARIN 1000 UNITS/ML 10ML ONE (09:54)
[2020-09-15] MEDS ORDERED: LIDOCAINE HCL 1% 20ML VIAL (Pyxis) INJ ONE (09:54)
[2020-09-15 10:53] LABS: VITAMIN B12 SERUM 1401 pg/mL (211-911)
[2020-09-15] MEDS ORDERED: FENTANYL CITRATE/PF 50MCG/ML 2ML VIAL ONE (11:19)
[2020-09-15] MEDS ORDERED: FENTANYL CITRATE/PF 50MCG/ML 2ML VIAL IV ONE (11:30)
[2020-09-15] MEDS: MICAFUNGIN 100 MG in SODIUM CHLORIDE 0.9% 100 ML IV SCH (12:41)
[2020-09-15] MEDS: MESALAMINE 1000MG SUPPOSITORY PR SCH (21:00)
[2020-09-15] MEDS: EPOETIN ALFA-EPBX 10,000 UNIT/ML VIAL SUBCUT SCH (22:33)
[2020-09-16] VITALS (11 sets, daily range): BP systolic 101–130; BP diastolic 55–81
[2020-09-16] MEDS: SUCRALFATE 1 G/10 ML UDC PO SCH ×4 (06:05→21:15)
[2020-09-16] MEDS: PANTOPRAZOLE SODIUM 40 MG/VIAL IV SCH ×2 (07:57→21:15)
[2020-09-16] MEDS: HYDROCORTISONE ACETATE 25MG SUPP PR SCH ×2 (07:57→21:00)
[2020-09-16] MEDS: MORPHINE SULFATE 2 MG/ML CPJ (NOT FOR IM USE) IV PRN (08:02)
[2020-09-16] MEDS: MICAFUNGIN 100 MG in SODIUM CHLORIDE 0.9% 100 ML IV SCH (12:01)
[2020-09-16] MEDS: MESALAMINE 1000MG SUPPOSITORY PR SCH (21:00)
[2020-09-17] VITALS (9 sets, daily range): BP systolic 95–126; BP diastolic 47–82
[2020-09-17] MEDS: SUCRALFATE 1 G/10 ML UDC PO SCH ×4 (06:18→22:04)
[2020-09-17] MEDS: PANTOPRAZOLE SODIUM 40 MG/VIAL IV SCH ×2 (08:36→22:14)
[2020-09-17] MEDS: HYDROCORTISONE ACETATE 25MG SUPP PR SCH ×2 (08:36→22:04)
[2020-09-17] MEDS: HYDROCODONE/ACETAMINOPHEN 5/325MG TABLET PO PRN (10:07)
[2020-09-17] MEDS: LEVOTHYROXINE SODIUM 50MCG TABLET PO SCH (16:36)
[2020-09-17] MEDS: TRAMADOL 50MG TABLET PO PRN (18:02)
[2020-09-17] MEDS: MESALAMINE 1000MG SUPPOSITORY PR SCH (21:00)
[2020-09-17] MEDS ORDERED: GABAPENTIN 300MG CAPSULE PO SCH (22:00)
[2020-09-17] MEDS: MICAFUNGIN 100 MG in SODIUM CHLORIDE 0.9% 100 ML IV SCH (22:14)
[2020-09-17] MEDS: EPOETIN ALFA-EPBX 10,000 UNIT/ML VIAL SUBCUT SCH (22:14)
[2020-09-17] MEDS ORDERED: GABAPENTIN 300MG CAPSULE PO NR (22:15)
[2020-09-18] VITALS (7 sets, daily range): BP systolic 101–137; BP diastolic 51–75
[2020-09-18] MEDS: LEVOTHYROXINE SODIUM 50MCG TABLET PO SCH (05:56)
[2020-09-18] MEDS: SUCRALFATE 1 G/10 ML UDC PO SCH ×4 (05:56→21:35)
[2020-09-18] MEDS: GABAPENTIN 300MG CAPSULE PO SCH ×3 (05:56→21:35)
[2020-09-18 06:41] LABS: BASOPHILS % 0.5 % (0.0-2.0); EOSINOPHILS % 1.8 % (0.0-5.0); HEMATOCRIT. 23.7 % (36.0-48.0); HEMOGLOBIN. 7.5 g/dL (12.0-16.0); LYMPHOCYTES % 22.3 % (20.0-50.0); MEAN CORPUSCULAR HEMOGLOBIN 30.5 pg (28.0-32.0); MEAN CORPUSCULAR VOLUME 95.9 fL (81.0-99.0); MEAN PLATELET VOLUME 8.9 fl (7.4-10.4); MONOCYTES % 11.5 % (2.0-8.0); NEUTROPHILS % 63.9 % (40.0-76.0); PLATELET 142 x1000/uL (130-400); RED BLOOD CELL COUNT 2.47 mill/uL (4.2-5.4); RED CELL DISTRIBUTION WIDTH 20.4 % (11.6-14.6)
[2020-09-18] MEDS: PANTOPRAZOLE SODIUM 40 MG/VIAL IV SCH ×2 (10:03→21:35)
[2020-09-18] MEDS: HYDROCORTISONE ACETATE 25MG SUPP PR SCH ×2 (10:03→21:00)
[2020-09-18] MEDS: MICAFUNGIN 100 MG in SODIUM CHLORIDE 0.9% 100 ML IV SCH (13:46)
[2020-09-18] MEDS: HYDROCODONE/ACETAMINOPHEN 5/325MG TABLET PO PRN (13:48)
[2020-09-18] MEDS: MESALAMINE 1000MG SUPPOSITORY PR SCH (21:00)
[2020-09-19] VITALS: BP 130/80
[2020-09-19 04:00] VITALS: BP 108/70
[2020-09-19] MEDS: GABAPENTIN 300MG CAPSULE PO SCH ×3 (06:09→21:56)
[2020-09-19] MEDS: LEVOTHYROXINE SODIUM 50MCG TABLET PO SCH (06:10)
[2020-09-19] MEDS: SUCRALFATE 1 G/10 ML UDC PO SCH ×4 (06:10→21:56)
[2020-09-19 08:00] VITALS: BP 131/81
[2020-09-19] MEDS: PANTOPRAZOLE SODIUM 40 MG/VIAL IV SCH ×2 (08:55→21:56)
[2020-09-19] MEDS: HYDROCORTISONE ACETATE 25MG SUPP PR SCH ×2 (09:00→21:56)
[2020-09-19 12:00] VITALS: BP 151/33
[2020-09-19] MEDS ORDERED: SODIUM CHLORIDE 0.9% 500 ML IV ONE ×2 (12:30)
[2020-09-19] MEDS: MICAFUNGIN 100 MG in SODIUM CHLORIDE 0.9% 100 ML IV SCH (12:39)
[2020-09-19] MEDS ORDERED: DOCUSATE SODIUM 250MG CAPSULE PO PRN (14:15)
[2020-09-19] MEDS: TRAMADOL 50MG TABLET PO PRN (14:35)
[2020-09-19 16:00] VITALS: BP 79/45
[2020-09-19] MEDS: MIDODRINE HCL 5MG TABLET PO SCH (17:43)
[2020-09-19 20:00] VITALS: BP 117/37
[2020-09-19 21:18] LABS: HEMATOCRIT 22.6 % (36.0-48.0); HEMOGLOBIN 7.1 g/dL (12.0-16.0)
[2020-09-19 21:41] LABS: HEPATITIS B SURFACE AB 175.2 mIU/mL
[2020-09-19 21:51] LABS: HEPATITIS B SURFACE ANTIGEN NEGATIVE
[2020-09-19] MEDS: MESALAMINE 1000MG SUPPOSITORY PR SCH (21:56)
[2020-09-20] VITALS: BP 108/86
[2020-09-20 04:00] VITALS: BP 105/40
[2020-09-20] MEDS: SUCRALFATE 1 G/10 ML UDC PO SCH ×3 (06:38→22:41)
[2020-09-20] MEDS: GABAPENTIN 300MG CAPSULE PO SCH ×3 (06:38→22:42)
[2020-09-20] MEDS: LEVOTHYROXINE SODIUM 50MCG TABLET PO SCH (06:39)
[2020-09-20 08:00] VITALS: BP 147/78
[2020-09-20] MEDS: MIDODRINE HCL 5MG TABLET PO SCH ×3 (09:43→20:54)
[2020-09-20] MEDS: HYDROCORTISONE ACETATE 25MG SUPP PR SCH ×2 (09:44→22:42)
[2020-09-20] MEDS: PANTOPRAZOLE SODIUM 40 MG/VIAL IV SCH ×2 (09:44→22:41)
[2020-09-20 12:00] VITALS: BP 142/71
[2020-09-20] MEDS: MICAFUNGIN 100 MG in SODIUM CHLORIDE 0.9% 100 ML IV SCH (12:30)
[2020-09-20 16:00] VITALS: BP_SYST 96; BP_SYST 98; BP_DIAS 64
[2020-09-20 20:00] VITALS: BP 98/64
[2020-09-20] MEDS ORDERED: ALTEPLASE 2MG/VIAL ITC NR (20:30)
[2020-09-20] MEDS: MESALAMINE 1000MG SUPPOSITORY PR SCH (22:42)
[2020-09-21] VITALS: BP 115/64
[2020-09-21 04:00] VITALS: BP 116/46
[2020-09-21 06:16] LABS: HEMATOCRIT. 32.6 % (36.0-48.0); HEMOGLOBIN. 10.4 g/dL (12.0-16.0); MEAN CORPUSCULAR HEMOGLOBIN 31.1 pg (28.0-32.0); MEAN CORPUSCULAR VOLUME 97.4 fL (81.0-99.0); PLATELET 140 x1000/uL (130-400); RED BLOOD CELL COUNT 3.34 mill/uL (4.2-5.4); RED CELL DISTRIBUTION WIDTH 18.4 % (11.6-14.6)
[2020-09-21] MEDS: GABAPENTIN 300MG CAPSULE PO SCH ×2 (06:53→13:35)
[2020-09-21] MEDS: SUCRALFATE 1 G/10 ML UDC PO SCH ×3 (06:53→17:20)
[2020-09-21] MEDS: LEVOTHYROXINE SODIUM 50MCG TABLET PO SCH (06:54)
[2020-09-21 08:00] VITALS: BP 130/67
[2020-09-21] MEDS ORDERED: SODIUM POLYSTYRENE SULFONATE 15 G/60 ML BOT PO SCH (08:00)
[2020-09-21] MEDS: HYDROCORTISONE ACETATE 25MG SUPP PR SCH ×2 (09:00→21:00)
[2020-09-21] MEDS: MIDODRINE HCL 5MG TABLET PO SCH ×3 (09:00→16:31)
[2020-09-21] MEDS: TRAMADOL 50MG TABLET PO PRN (10:39)
[2020-09-21] MEDS: PANTOPRAZOLE SODIUM 40 MG/VIAL IV SCH (10:39)
[2020-09-21 12:00] VITALS: BP 129/62
[2020-09-21] MEDS ORDERED: CALCIUM GLUCONATE 100MG/ML 10ML VIAL IV ONE (13:15)
[2020-09-21] MEDS: HYDROCODONE/ACETAMINOPHEN 5/325MG TABLET PO PRN (13:36)
[2020-09-21] MEDS: MICAFUNGIN 100 MG in SODIUM CHLORIDE 0.9% 100 ML IV SCH ×2 (13:46→14:09)
[2020-09-21] MEDS ORDERED: SODIUM BICARBONATE 8.4% 1 MEQ/ML 50ML SYR IV NR (14:09)
[2020-09-21] MEDS ORDERED: CALCIUM GLUCONATE 1GM PREMIX 50 ML IV NR (15:00)
[2020-09-21] MEDS ORDERED: INSULIN REGULAR (HUMULIN R) UD 100 UNITS/ML SYR IV NR (15:00)
[2020-09-21] MEDS ORDERED: DEXTROSE 50% WATER 50ML SYRINGE IV NR (15:00)
[2020-09-21 16:00] VITALS: BP 116/67
[2020-09-21 18:36] LABS: PLATELET ESTIMATE NORMAL
[2020-09-21 20:00] VITALS: BP 135/69
[2020-09-21] MEDS: MESALAMINE 1000MG SUPPOSITORY PR SCH (21:00)
[2020-09-21 22:17] LABS: CHLORIDE 101 mEq/L (98-107)
[2020-09-21] MEDS ORDERED: SODIUM POLYSTYRENE SULFONATE 15 G/60 ML BOT PO NR (23:00)
[2020-09-22] VITALS: BP 107/23
[2020-09-22] MEDS: HYDROCORTISONE ACETATE 25MG SUPP PR SCH ×3 (00:06→21:19)
[2020-09-22] MEDS: PANTOPRAZOLE SODIUM 40 MG/VIAL IV SCH ×3 (00:06→22:17)
[2020-09-22] MEDS: SUCRALFATE 1 G/10 ML UDC PO SCH ×5 (00:06→21:19)
[2020-09-22] MEDS: MESALAMINE 1000MG SUPPOSITORY PR SCH ×2 (00:06→22:18)
[2020-09-22] MEDS: GABAPENTIN 300MG CAPSULE PO SCH ×4 (00:06→21:19)
[2020-09-22] MEDS: DIPHENHYDRAMINE 25MG CAPSULE PO PRN (01:45)
[2020-09-22] MEDS: DIPHENHYDRAMINE 50MG CAPSULE PO PRN ×2 (02:14→21:21)
[2020-09-22 04:00] VITALS: BP 96/64
[2020-09-22] MEDS: LEVOTHYROXINE SODIUM 50MCG TABLET PO SCH (06:20)
[2020-09-22] MEDS: MIDODRINE HCL 5MG TABLET PO SCH ×3 (09:54→17:46)
[2020-09-22 12:00] VITALS: BP 136/76
[2020-09-22] MEDS: MICAFUNGIN 100 MG in SODIUM CHLORIDE 0.9% 100 ML IV SCH (13:40)
[2020-09-22] MEDS: ACETAMINOPHEN 325MG TABLET PO PRN ×2 (13:41→23:30)
[2020-09-22 16:00] VITALS: BP 107/62
[2020-09-22 19:34] LABS: HEMATOCRIT. 24.3 % (36.0-48.0); HEMOGLOBIN. 7.5 g/dL (12.0-16.0); MEAN CORPUSCULAR HEMOGLOBIN 30.6 pg (28.0-32.0); MEAN CORPUSCULAR VOLUME 98.8 fL (81.0-99.0); MEAN PLATELET VOLUME 8.6 fl (7.4-10.4); PLATELET 112 x1000/uL (130-400); RED BLOOD CELL COUNT 2.46 mill/uL (4.2-5.4); RED CELL DISTRIBUTION WIDTH 20.8 % (11.6-14.6)
[2020-09-22 20:34] LABS: NUCLEATED RED BLOOD CELLS 1 /100 WBC
[2020-09-22 20:36] LABS: PLATELET ESTIMATE DECREASED
[2020-09-22 20:51] VITALS: BP 121/83
[2020-09-23 00:14] VITALS: BP 141/72
[2020-09-23 04:00] VITALS: BP 121/44
[2020-09-23] MEDS: SUCRALFATE 1 G/10 ML UDC PO SCH ×4 (06:23→21:27)
[2020-09-23] MEDS: LEVOTHYROXINE SODIUM 50MCG TABLET PO SCH (06:23)
[2020-09-23] MEDS: GABAPENTIN 300MG CAPSULE PO SCH ×3 (06:23→21:27)
[2020-09-23] MEDS: ACETAMINOPHEN 325MG TABLET PO PRN (06:42)
[2020-09-23 08:00] VITALS: BP 117/65
[2020-09-23 08:29] LABS: BASOPHILS % 0.6 % (0.0-2.0); LYMPHOCYTES % 16.8 % (20.0-50.0); MEAN CORPUSCULAR HEMOGLOBIN 30.7 pg (28.0-32.0); MEAN CORPUSCULAR VOLUME 97.8 fL (81.0-99.0); MEAN PLATELET VOLUME 8.7 fl (7.4-10.4); MONOCYTES % 5.3 % (2.0-8.0); NEUTROPHILS % 76.3 % (40.0-76.0); PLATELET 129 x1000/uL (130-400); RED BLOOD CELL COUNT 2.89 mill/uL (4.2-5.4); RED CELL DISTRIBUTION WIDTH 20.6 % (11.6-14.6)
[2020-09-23 08:50] LABS: HEMATOCRIT. 28.3 % (36.0-48.0); HEMOGLOBIN. 8.9 g/dL (12.0-16.0)
[2020-09-23] MEDS: PANTOPRAZOLE SODIUM 40 MG/VIAL IV SCH ×2 (09:14→21:27)
[2020-09-23] MEDS: MIDODRINE HCL 5MG TABLET PO SCH ×3 (09:14→17:38)
[2020-09-23] MEDS: HYDROCORTISONE ACETATE 25MG SUPP PR SCH ×3 (09:14→21:27)
[2020-09-23 12:06] VITALS: BP 144/78
[2020-09-23] MEDS: MICAFUNGIN 100 MG in SODIUM CHLORIDE 0.9% 100 ML IV SCH (14:24)
[2020-09-23 16:07] VITALS: BP 137/73
[2020-09-23] MEDS ORDERED: HEPARIN SODIUM 1,000 UNIT/1ML VIAL IV NR (16:07)
[2020-09-23] MEDS ORDERED: DEXTROSE 50% WATER 50ML SYRINGE IV PRN (19:00)
[2020-09-23 20:00] VITALS: BP 131/71
[2020-09-23] MEDS ORDERED: SODIUM POLYSTYRENE SULFONATE 15 G/60 ML BOT PO NR (20:00)
[2020-09-23] MEDS: MESALAMINE 1000MG SUPPOSITORY PR SCH ×2 (21:00→21:27)
[2020-09-24] VITALS: BP 144/84
[2020-09-24 04:30] VITALS: BP 145/71
[2020-09-24] MEDS: GABAPENTIN 300MG CAPSULE PO SCH ×3 (05:36→22:30)
[2020-09-24] MEDS: ACETAMINOPHEN 325MG TABLET PO PRN (05:37)
[2020-09-24] MEDS: LEVOTHYROXINE SODIUM 50MCG TABLET PO SCH (06:20)
[2020-09-24] MEDS: SUCRALFATE 1 G/10 ML UDC PO SCH ×4 (06:20→22:30)
[2020-09-24 08:00] VITALS: BP 95/27
[2020-09-24] MEDS: HYDROCORTISONE ACETATE 25MG SUPP PR SCH ×2 (09:00→21:00)
[2020-09-24] MEDS: PANTOPRAZOLE SODIUM 40 MG/VIAL IV SCH ×2 (10:50→22:30)
[2020-09-24] MEDS: MIDODRINE HCL 5MG TABLET PO SCH ×3 (10:50→18:02)
[2020-09-24] MEDS: MICAFUNGIN 100 MG in SODIUM CHLORIDE 0.9% 100 ML IV SCH (13:12)
[2020-09-24 16:42] LABS: BASOPHILS % 1.3 % (0.0-2.0); EOSINOPHILS % 1.1 % (0.0-5.0); HEMATOCRIT. 26.6 % (36.0-48.0); HEMOGLOBIN. 8.4 g/dL (12.0-16.0); LYMPHOCYTES % 19.6 % (20.0-50.0); MEAN CORPUSCULAR HEMOGLOBIN 30.8 pg (28.0-32.0); MEAN CORPUSCULAR VOLUME 97.4 fL (81.0-99.0); MEAN PLATELET VOLUME 8.6 fl (7.4-10.4); MONOCYTES % 7.5 % (2.0-8.0); NEUTROPHILS % 70.5 % (40.0-76.0); PLATELET 132 x1000/uL (130-400); RED BLOOD CELL COUNT 2.74 mill/uL (4.2-5.4); RED CELL DISTRIBUTION WIDTH 20.8 % (11.6-14.6)
[2020-09-24 20:00] VITALS: BP 133/66
[2020-09-24] MEDS: MESALAMINE 1000MG SUPPOSITORY PR SCH (21:00)
[2020-09-25] MEDS: GABAPENTIN 300MG CAPSULE PO SCH ×2 (06:31→13:38)
[2020-09-25] MEDS: SUCRALFATE 1 G/10 ML UDC PO SCH ×2 (06:31→13:39)
[2020-09-25] MEDS: LEVOTHYROXINE SODIUM 50MCG TABLET PO SCH (06:31)
[2020-09-25 08:00] VITALS: BP 144/83
[2020-09-25] MEDS: HYDROCORTISONE ACETATE 25MG SUPP PR SCH (09:00)
[2020-09-25] MEDS: MIDODRINE HCL 5MG TABLET PO SCH ×2 (09:00→13:00)
[2020-09-25] MEDS: PANTOPRAZOLE SODIUM 40 MG/VIAL IV SCH (09:51)
[2020-09-25] MEDS: SODIUM POLYSTYRENE SULFONATE 15 G/60 ML BOT PO NR ×3 (13:39→14:07)
[2020-09-25 14:11] VITALS: BP 144/83
[2020-09-26] MEDS ORDERED: EPOETIN ALFA-EPBX 10,000 UNIT/ML VIAL SUBCUT SCH (21:00)
== END 2020-09-25 16:24 | disposition home or self-care (01) | DRG 377 ==
LOC: ER 15:11 → MICUSO 21:50 → 3WST 09-10 23:26 → 8WST 09-18 16:45 → 6WST 09-20 21:24
PROVIDERS: ADMIT Internal Medicine; ATTEND Internal Medicine
PROC: 30233N1 Transfusion of Nonautologous Red Blood Cells into Peripheral Vein, Percutaneous Approach (ICD-10-PCS; principal; 2020-09-09)
PROC: 0JPW3XZ Removal of Tunneled Vascular Access Device from Lower Extremity Subcutaneous Tissue and Fascia, Percutaneous Approach (ICD-10-PCS; 2020-09-09)
PROC: 0JHD3XZ Insertion of Tunneled Vascular Access Device into Right Upper Arm Subcutaneous Tissue and Fascia, Percutaneous Approach (ICD-10-PCS; 2020-09-09)
PROC: 06PY33Z Removal of Infusion Device from Lower Vein, Percutaneous Approach (ICD-10-PCS; 2020-09-09)
PROC: 05H533Z Insertion of Infusion Device into Right Subclavian Vein, Percutaneous Approach (ICD-10-PCS; 2020-09-09)
PROC: 5A1D70Z Performance of Urinary Filtration, Intermittent, Less than 6 Hours Per Day (ICD-10-PCS; 2020-09-10)
PROC: 0DB68ZX Excision of Stomach, Via Natural or Artificial Opening Endoscopic, Diagnostic (ICD-10-PCS; 2020-09-11)
PROC: 0DBP8ZX Excision of Rectum, Via Natural or Artificial Opening Endoscopic, Diagnostic (ICD-10-PCS; 2020-09-11)
PROC: 5A1D70Z Performance of Urinary Filtration, Intermittent, Less than 6 Hours Per Day (ICD-10-PCS; 2020-09-13)
PROC: 5A1D70Z Performance of Urinary Filtration, Intermittent, Less than 6 Hours Per Day (ICD-10-PCS; 2020-09-14)
PROC: B5161ZA Fluoroscopy of Right Subclavian Vein using Low Osmolar Contrast, Guidance (ICD-10-PCS; 2020-09-15)
PROC: B546ZZA Ultrasonography of Right Subclavian Vein, Guidance (ICD-10-PCS; 2020-09-15)
PROC: 5A1D70Z Performance of Urinary Filtration, Intermittent, Less than 6 Hours Per Day (ICD-10-PCS; 2020-09-16)
PROC: 5A1D70Z Performance of Urinary Filtration, Intermittent, Less than 6 Hours Per Day (ICD-10-PCS; 2020-09-19)
PROC: 5A1D70Z Performance of Urinary Filtration, Intermittent, Less than 6 Hours Per Day (ICD-10-PCS; 2020-09-21)
PROC: 5A1D70Z Performance of Urinary Filtration, Intermittent, Less than 6 Hours Per Day (ICD-10-PCS; 2020-09-22)
PROC: 5A1D70Z Performance of Urinary Filtration, Intermittent, Less than 6 Hours Per Day (ICD-10-PCS; 2020-09-25)
DX: K29.71 Gastritis, unspecified, with bleeding (principal); U07.1 COVID-19; E43 Unspecified severe protein-calorie malnutrition; N18.6 End stage renal disease; I50.23 Acute on chronic systolic (congestive) heart failure; K62.6 Ulcer of anus and rectum; D62 Acute posthemorrhagic anemia; I13.2 Hypertensive heart and chronic kidney disease with heart failure and with stage 5 chronic kidney disease, or end stage renal disease; B49 Unspecified mycosis; I42.9 Cardiomyopathy, unspecified; K29.61 Other gastritis with bleeding; K57.31 Diverticulosis of large intestine without perforation or abscess with bleeding; K64.8 Other hemorrhoids; B19.20 Unspecified viral hepatitis C without hepatic coma; D63.8 Anemia in other chronic diseases classified elsewhere; E03.9 Hypothyroidism, unspecified; E11.22 Type 2 diabetes mellitus with diabetic chronic kidney disease; E87.5 Hyperkalemia; E87.8 Other disorders of electrolyte and fluid balance, not elsewhere classified; J44.9 Chronic obstructive pulmonary disease, unspecified; E11.649 Type 2 diabetes mellitus with hypoglycemia without coma; K44.9 Diaphragmatic hernia without obstruction or gangrene; Z79.82 Long term (current) use of aspirin; Z86.718 Personal history of other venous thrombosis and embolism; Z87.19 Personal history of other diseases of the digestive system; Z87.891 Personal history of nicotine dependence; Z95.810 Presence of automatic (implantable) cardiac defibrillator; Z99.2 Dependence on renal dialysis; Z88.2 Allergy status to sulfonamides; Z88.8 Allergy status to other drugs, medicaments and biological substances; Z79.891 Long term (current) use of opiate analgesic; Z79.899 Other long term (current) drug therapy
CPT/HCPCS: 36415; 36573; 36581; 71045; 77001; 78278; 80048; 80053; 82140; 82607; 82728; 82962; 83540; 83550; 84443; 84484; 85014; 85018; 85025; 85027; 86705; 86706; 86850; 86900; 86920; 87106; 87340; 87426; 87635; 88305; 88313; 93005; 93306; 93970; 99152; 99153; 99285; A9560; C1750; C1769; C9113; J0610; J0885; J1644; J1815; J2248; J2250; J2270; J2405; J2997; J3010; J3490; J7030; J7040; J7050; P9016; Q0163; G0500